=== PATIENT | female | born 1975 | race Caucasian/White ===

== ENCOUNTER 2018-11-30 23:02 | Emergency (ER) | payer OTHER, SELFPAY ==
[2018-11-30 23:03] VITALS: BP 111/70; PULSE 91; RESP 20; TEMP 36.6; O2SAT 99; BMI 22.7
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
[2018-11-30] MEDS: Morphine 4 MG/ML Syringe IM (23:56)
--- NOTE | 2018-12-01 00:09 | ED.RN ---
PT requests to go home and soak in bath tub and dress her own wounds. Dr Escalante states its ok. Pt given bacitracin for home use, and dressing supplies. Educated on wound care. Pt verbalizes understanding and reassures this RN that she will go straight home and soak and dress wounds appropriately.
[2018-12-01] MEDS: BACITRACIN 15 GM Tube 1 APPLIC TOPICAL ×2 (00:12→00:13)
[2018-12-01] MEDS: HYDROcodone Bitartrate/Apap 5/325 Tablet PO (00:30)
[2018-12-01 00:31] VITALS: BP 134/79; PULSE 102; RESP 18; O2SAT 99
== END 2018-12-01 00:36 | disposition home or self-care (01) ==
PROVIDERS: Emergency Provider Emergency Medicine; Family Provider Internal Medicine; PCP Internal Medicine
DX: S00.81XA Abrasion of other part of head, initial encounter (principal); S30.810A Abrasion of lower back and pelvis, initial encounter; S80.212A Abrasion, left knee, initial encounter; S80.211A Abrasion, right knee, initial encounter; S60.512A Abrasion of left hand, initial encounter; S60.511A Abrasion of right hand, initial encounter; S50.812A Abrasion of left forearm, initial encounter; S50.811A Abrasion of right forearm, initial encounter; S50.312A Abrasion of left elbow, initial encounter; S50.311A Abrasion of right elbow, initial encounter; S40.812A Abrasion of left upper arm, initial encounter; S40.811A Abrasion of right upper arm, initial encounter; S40.212A Abrasion of left shoulder, initial encounter; S40.211A Abrasion of right shoulder, initial encounter; E03.9 Hypothyroidism, unspecified; F90.9 Attention-deficit hyperactivity disorder, unspecified type; Z79.899 Other long term (current) drug therapy; V28.4XXA Motorcycle driver injured in noncollision transport accident in traffic accident, initial encounter; Y93.55 Activity, bike riding; Y92.410 Unspecified street and highway as the place of occurrence of the external cause; Y99.8 Other external cause status
CPT/HCPCS: 96372; 99284

== ENCOUNTER → 2019-12-11 16:40 | Outpatient (CLI) | payer BC, SELFPAY ==
--- NOTE | 2019-12-11 16:43 | BI_ITS ---
MAMMOGRAPHY - BILATERAL SCREENING REASON FOR EXAM: Female, 44 years old. Routine annual screening examination. PERTINENT HISTORY: Non-contributory. TECHNIQUE: Digital bilateral breast maikel (3D mammographic acquisition) in the CC and MLO projections. 2-D mediolateral oblique (MLO) and craniocaudad (CC) views of both breasts were obtained. CAD: Full Field Digital Mammography with Computer Added Detection was performed. COMPARISON: Comparison is made with prior study dated 03/26/2015. FINDINGS: Breast Composition: The breasts are heterogeneously dense, which may obscure small masses. There is a 6.6 mm x 8.7 mm nodule in the deep inferior lateral aspect of the right breast. Correlation with ultrasound is recommended for further evaluation. No other significant abnormalities are identified. BI/SCREEN MAMM (CAD) W/MAIKEL BILAT IMPRESSION: 6.6 mm x 8.7 mm well-defined nodule in the inferior lateral aspect of the right breast. Correlation with ultrasound is recommended. ASSESSMENT CATEGORY: BIRADS Category 0: Incomplete. Need additional imaging evaluation. A letter regarding these results will be sent to the patient by the facility within 30 days. Approximately 10% of breast cancers are not detected by mammography. A normal mammogram should not delay biopsy of a clinically suspicious abnormality. [id number] Electronically Signed: Sung Bosch, at 8:29 EDT , Service support ,
== END ==
PROVIDERS: PCP Internal Medicine; Referring Provider Obstetrics & Gynecology; Visit Provider Obstetrics & Gynecology
DX: Z12.31 Encounter for screening mammogram for malignant neoplasm of breast (principal)
CPT/HCPCS: 77063; 77067

== ENCOUNTER → 2019-12-17 16:30 | Outpatient (CLI) | payer BC, SELFPAY ==
[2019-12-24 20:24] LABS: HPV APTIMA, High Risk Negative (Negative); HPV Reflexed? YES, CHARGE PATIENT
== END ==
PROVIDERS: PCP Internal Medicine; Visit Provider Obstetrics & Gynecology
DX: Z12.4 Encounter for screening for malignant neoplasm of cervix (principal)
CPT/HCPCS: 87624; 88175; G0145

== ENCOUNTER → 2019-12-18 14:32 | Outpatient (CLI) | payer BC, SELFPAY ==
--- NOTE | 2019-12-18 14:36 | US_ITS ---
STUDY: ULTRASOUND BREAST - RIGHT REASON FOR EXAM: Female, 44 years old. Abnormal screening mammogram. TECHNIQUE: Axial and longitudinal images of the RIGHT breast were performed with a high resolution ultrasound transducer. # OF IMAGES: 10 COMPARISON: Comparison is made with prior mammogram dated 12/11/2019. FINDINGS: RIGHT Breast: The mammographic abnormality corresponds to a 5 mm x 3 mm x 2 mm cyst at the 7 o''clock position of the breastat 4 cm from the nipple. US/Breast Limited Unilateral IMPRESSION: The mammographic abnormality corresponds to a 5 mm x 3 mm x 2 mm cyst. ASSESSMENT CATEGORY: BIRADS Category 2: Benign. A letter regarding these results will be sent to the patient by the facility within 30 days. Electronically Signed: Sung Bosch, at 15:05 EDT , Service support ,
== END ==
PROVIDERS: PCP Internal Medicine; Referring Provider Obstetrics & Gynecology; Visit Provider Obstetrics & Gynecology
DX: N63.10 Unspecified lump in the right breast, unspecified quadrant (principal)
CPT/HCPCS: 76642

== ENCOUNTER 2020-09-29 07:00 | Outpatient (RCR) | payer BC, SELFPAY ==
--- NOTE | 2020-09-02 08:53 | HP.PTEVAL_ITS ---
Patient's Visit Information DARON HENDERSON is a 45 year old F referred to Physical Therapy by VICKY BRUNO with a diagnosis of Plantar Fascia and Fibromatosis. Date of Evaluation: 09/02/20 Physical Therapist: Laury Romero DPT - Visit Plan Frequency: 3x /Week Duration: 4 Weeks Plan: Focus on core strength/stabilization- gastroc stretching, proprioception, eccentric HR, ultrasound. HEP Review: gastroc stretch - Subjective Patient reports that she had July 16 tarsal tunnel - plantar fascitotomy last year- has been dealing with this for about 4-5 years. She was unable to spread her toes without shooting pains. He went in cleaned out scar tissue- this surgery was a success and she is able to now spread her toes. Has had it in both sides but the left is worse than the right. She can't stand on her feet without having to shift back forth. She was very active. Has tried injections, night splints, boots- nothing really helped. Worst: -01/16 Agg: standing, being up on it. Eases: sitting- takes time for the burning to go away- takes a few hours for it to go away- Best: 0/10. Has not done PT for her back- was seeing chiro- she felt it was making it worse so she stopped going. Has never had PT on her feet. Tore her ACL a few years ago but has never had formal PT. Pain is located along the medial plantar fascia and the heel. Describes the pain as dull and achy as well as burning. Has N/T in the same area. Feels her left is 50% worse than her right. Is unable to disability coordinator her kitchen- she is on a scooter to cook and perform ADL's. He put her in the boot- she just got off the crutches the other day. Wears the boot all the time when she is out- will wear crocks at home. Work: [employer]- sitting all day. Wants to get back to living life without pain. Will still go the gym and props her foot up on a bench and just does what she can. Has not seen an MD for her back pain. PMHx: thyroid. depression. Meds: synthroid and lomectal. She has also had S1 issues. Sleep: hard to get comfortable and will wake her up- side sleeper- does not sleep in a night splint. - Objective Posture: FH, RS- can correct with verbal cues but does not maintain. Gait: left CAM walker- ambulates on the outside of the foot and on the toe- poor heel strike. SLS: hip drop on the left- unable to sls due to pain. HR/TR: able with pain- does weight shift to the right. ROM: WFL in all planes- lumbar and LE. Strength: Core: fair minus. Hip: 4-/5 throughout, Knee: 5/5, Ankle: 5/5 Eccentric HR: fair minus. Flex: HS: moderate, Gastroc: moderate, Soleus: moderate. Palpation: tender along medial border of the plantar fascia and heel. Special Test: LLD: negative, Pelvic Alignment; WFL - Goals Goal 1:: Patient will be I with HEP and progression Goal Time Frame: 4-6 Weeks Goal 2:: Patient will ambulate >300 feet with a normalized gait pattern Goal Time Frame: 4-6 Weeks Goal 3:: Patient will SLS for 30 sec without pain or LOB Goal Time Frame: 4-6 Weeks Goal 4:: Patient will maintain proper posture t/o tx session to demo increased core s/s. Goal Time Frame: 4-6 Weeks - Rehabilitation Potential Physical Therapy Diagnosis: Patient presents with hypomobility- she has decreased core strength/stabilization, LE strength, flexibility and muscular endurance leading to poor gait pattern and increased pain with ADL's. Rehabilitation Potential: Fair - Anticipated Interventions Patient/Client Instruction: Educate patient on: Benefits of Fitness Program Therapeutic Exercise to Include: Strength training, Endurance training, Balance training, Body mechanics, Postural training, Flexibilty training, Gait and locomotor training, Neuromotor development, Dynamic Lumbar Stabilization, Scapular Strength/Stabilization For the Purpose of:: To improve muscle performance and motor function Cryotherapy (ice pack, ice massage): Yes Thermo therapy (hot pack): Yes Ultrasound (thermal/non thermal): Yes For the Purpose of:: To decrease pain Thank you for the opportunity to evaluate your patient. For Medicare and Medicare HMO plans, please review the plan of care and approve it. It will need to be FAXED BACK to us at [phone] for Medicare purposes. For Medicare only, by signing this I certify the plan of care. Please let me know if there are questions or concerns regarding this plan of care. Physician Signature: Date:
--- NOTE | 2020-09-29 09:25 | HP.PTDCSUM ---
It has been my pleasure to treat DARON HENDERSON referred by VICKY BRUNO, with the diagnosis of Plantar Fascia and Fibromatosis for a total of 7 visit(s). Discharge Date: Please see the following information for a summary of their discharge status. Subjective: Patient reports that she still does not have full ROM or strength in the left foot. Jaison horse pain last night in her toes. She feels like she has gained strength but the pain in the feet is pretty much the same. Goes back to the MD the . She feels that she is able to do more at home and has learned a lot through therapy. Bilat feet Pain Intensity (Out of 10): 9 % Improvement: 30 Objective/Function: Posture: FH, RS- can correct with verbal cues but does not maintain. Gait: no CAM walker- does have moderate foot drop on the left. SLS: hip drop on the left- but can maintain for 30 seconds without LOB HR: able with mild weight shift TR: unbale on the left ROM: WFL in all planes- lumbar and LE. Strength: Core: fair minus. Hip: 4-/5 throughout, Knee: 5/5, Ankle: 5/5 Eccentric HR: fair minus. Flex: HS: moderate, Gastroc: moderate, Soleus: moderate. Palpation: tender along medial border of the plantar fascia and heel. Special Test: LLD: negative, Pelvic Alignment; WFL Goal 1:: Patient will be I with HEP and progression Goal Progress: Goal Met Goal 2:: Patient will ambulate >300 feet with a normalized gait pattern Goal Progress: Progressing Goal 3:: Patient will SLS for 30 sec without pain or LOB Goal Progress: Progressing Goal 4:: Patient will maintain proper posture t/o tx session to demo increased core s/s. Goal Progress: Progressing Plan: Patient wants to be discharged to home exercise program. Encouraged follow up with estimator paperboard boxes and PCP If there are questions or concerns regarding this patient's physical therapy, please feel free to call me at [phone]. Thank you for the referral of this patient. Sincerely, Laury Romero DPT
== END 2020-09-29 14:46 | disposition home or self-care (01) ==
LOC: PT 07:00
PROVIDERS: PCP Internal Medicine
DX: M72.2 Plantar fascial fibromatosis (principal)
CPT/HCPCS: 97035; 97110; 97140; 97162; 97164; 97530

== ENCOUNTER → 2020-11-11 16:56 | Outpatient (CLI) | payer BC, SELFPAY ==
[2020-10-15 14:13] VITALS: BMI 22.7
--- NOTE | 2020-11-11 16:56 | MRI_ITS ---
STUDY: MRI LUMBAR SPINE WITHOUT CONTRAST REASON FOR EXAM: Female, 45 years old. LBP, bilat foot numbness TECHNIQUE: Standardized fat and water weighted pulse sequences were obtained in the sagittal and axial planes. COMPARISON: Lumbar spine x-rays 10/15/2020 FINDINGS: No evidence for acute fracture or subluxation. Interosseous hemangioma within the L1 vertebral body. T12-L1: Normal endplates. Normal disc height, hydration and morphology. Normal bilateral facet joints. Normal central canal and bilateral lateral recesses. Normal bilateral intervertebral neural foramina. Normal lumbar lordosis. There is no substantial scoliosis. Normal conus medullaris that terminates at T12-L1 L1-2: Normal endplates. Normal disc height, hydration and morphology. Normal bilateral facet joints. Normal central canal and bilateral lateral recesses. Normal bilateral intervertebral neural foramina. L2-3: Normal endplates. Normal disc height, hydration and minimal annular bulge.. Normal bilateral facet joints. Normal central canal and bilateral lateral recesses. Normal bilateral intervertebral neural foramina. L3-4: Normal endplates. Normal disc height, desiccation and minimal annular bulge.. Normal bilateral facet joints. Normal central canal and bilateral lateral recesses. Normal bilateral intervertebral neural foramina. L4-5: Normal endplates. Normal disc height, desiccation mild annular bulge.. Mild facet arthropathy.. Normal central canal and bilateral lateral recesses. Moderate bilateral neuroforaminal stenosis. L5-S1: Normal endplates. Normal disc height, desiccation and minimal annular bulge.. Mild facet arthropathy.. Normal central canal and bilateral lateral recesses. Mild bilateral neuroforaminal encroachment.. Normal visualized sacral ala. Normal visualized paraspinous soft tissue structures. MRI/Spine Lumbar (Routine) IMPRESSION: No acute fracture or other significant bony pathology. Spinal stenosis at L4-5 and to lesser extent at L3-4 secondary to bulging annulus and facet arthropathy Electronically Signed: Yoandy Ojeda MD at 22:40 EDT , Service support ,
== END ==
PROVIDERS: PCP Internal Medicine; Referring Provider Orthopaedic Surgery; Visit Provider Orthopaedic Surgery
DX: M54.5 Low back pain (principal)
CPT/HCPCS: 72148

== ENCOUNTER → 2021-01-13 16:22 | Outpatient (CLI) | payer BC, SELFPAY ==
--- NOTE | 2021-01-13 15:45 | CER_PTH ---
PATIENT: DARON HENDERSON LOC: [facility] U#:[id number] AGE/SX: 49/F ROOM: RE01/13/[address]: Dr. Estuardo Metzger MD : 1975 BED: DIS: SPEC #: [id number] RECD: 01/13/21 16:34 STATUS: DIONNE SNEHAL #: [id number] JOSE: 01/13/21 15:[address]: Estuardo Metzger DEPT: SURGICAL PATHOLOGY RECD BY: Maria Ines Loyola ENTERED: 01/14/21 08:30 SP TYPE: CERV OTHR DR: Dr. Kary Ochoa MD Tissues: Uterine cervix, NOS Procedures: Surgery Specimen Level IV HEADER OPERATION: Cervical polypectomy PRE-OP DIAGNOSIS: N84.1 TISSUE SUBMITTED: Cervical polyp MICROSCOPIC DIAGNOSIS Cervical polyp, polypectomy: A minute fragment of benign endometrial mucosa consistent with benign endocervical polyp. Fragments of late secretory endometrium. SJ:ricco 01/17/2021 MICROSCOPIC DESCRIPTION Slides are reviewed. GROSS DESCRIPTION Received in fixative is one container labeled with the patient's name and designated cervical polyp. The specimen consists of multiple irregular fragments of martinez soft tissue mixed with mucoid tissue that in aggregate measure 1.5 x 0.5 x 0.2 cm. The specimen is totally submitted in one cassette. / SJ:ricco 01/14/21 TC:5 [facility]: [id number]
[2021-01-18 15:58] LABS: HPV Reflexed? NOT INDICATED
== END ==
PROVIDERS: PCP Internal Medicine; Visit Provider Obstetrics & Gynecology
DX: Z12.4 Encounter for screening for malignant neoplasm of cervix (principal)
CPT/HCPCS: 88175; 88305; G0145

== ENCOUNTER → 2021-02-17 07:09 | Outpatient (CLI) | payer BC, SELFPAY ==
--- NOTE | 2021-02-17 16:05 | BI_ITS ---
MAMMOGRAPHY - BILATERAL SCREENING REASON FOR EXAM: Female, 45 years old. Routine annual screening examination. PERTINENT HISTORY: Non-contributory. TECHNIQUE: Digital bilateral breast maikel (3D mammographic acquisition) in the CC and MLO projections. 2-D mediolateral oblique (MLO) and craniocaudad (CC) views of both breasts were obtained. CAD: Full Field Digital Mammography with Computer Added Detection was performed. COMPARISON: Comparison is made with prior study dated 12/11/2019 and 03/26/2015. FINDINGS: Breast Composition: The breasts are heterogeneously dense, which may obscure small masses. There are no dominant masses or suspicious calcifications. The previously seen 6.6 mm x 8.7 mm nodule in the deep lateral aspect of the right breast is not seen at this time. No other significant abnormalities are identified. BI/SCRN MAMM (CAD)W/MAIKEL BILAT IMPRESSION: Stable bilateral screening mammogram. Yearly follow-up mammogram recommended. (A) ASSESSMENT CATEGORY: BIRADS Category 2: Benign. A letter regarding these results will be sent to the patient by the facility within 30 days. Approximately 10% of breast cancers are not detected by mammography. A normal mammogram should not delay biopsy of a clinically suspicious abnormality. [id number] Electronically Signed: Sung Bosch MD at 8:43 EST , Service support ,
== END ==
PROVIDERS: PCP Internal Medicine; Referring Provider Obstetrics & Gynecology; Visit Provider Obstetrics & Gynecology
DX: Z12.31 Encounter for screening mammogram for malignant neoplasm of breast (principal)
CPT/HCPCS: 77063; 77067

== ENCOUNTER → 2021-09-07 | Outpatient (CLI) | payer BC, SELFPAY ==
--- NOTE | 2021-09-07 06:39 | MRI_ITS ---
STUDY: MRI LEFT ANKLE WITHOUT CONTRAST REASON FOR EXAM: Left foot pain for 6 years with numbness, 2 prior surgeries, tarsal tunnel syndrome. TECHNIQUE: Standardized fat and water weighted pulse sequences were obtained in all 3 orthogonal planes. COMPARISON: None. FINDINGS: Normal subcutis adipose space. There is no space-occupying lesion in the tarsal tunnel. Normal posterior tibialis tendon. Normal flexor digitorum longus tendon. There is a small volume of fluid in the flexor hallucis longus tendon sheath, mostly distal to the sustentaculum jennifer (inversion recovery sagittal image 8). There is a longitudinal split of the perimalleolar peroneus brevis tendon (T1 axial images 12-14). Normal peroneus longus and brevis tendons. Normal tibialis anterior tendon. Normal extensor hallucis longus tendon. Normal extensor digitorum longus tendons. Normal Achilles tendon and teno-osseous insertion. There is chronic plantar fasciitis with thickening of the central cord (T2 coronal images 18-20). Normal plantar calcaneal tubercles. Normal intrinsic muscles of the rearfoot. Normal distal tibiofibular syndesmotic ligamentous complex. Normal lateral ligamentous complex. Normal subtalar ligaments and sinus tarsi. Normal deltoid ligamentous complexes. Normal plantar calcaneonavicular (spring) ligament. There is a small tibiotalar joint effusion (inversion recovery sagittal image 12). Normal talar dome. There is a small posterior subtalar joint effusion (inversion recovery sagittal images 15, 16). There is a small os trigonum. Normal talonavicular articulation. Normal calcaneocuboid articulation. Normal navicular-cuneiform articulations. MRI/Lower Ext Joint Only (Routine) IMPRESSION: Longitudinal split of the peroneus brevis tendon. Chronic plantar fasciitis. Small tibiotalar and posterior subtalar joint effusions. No demonstrated space-occupying lesion in the tarsal tunnel. Electronically Signed: Nate Nava MD at 15:01 EDT ,
== END | disposition home or self-care (01) ==
LOC: MRI 06:31
PROVIDERS: PCP Internal Medicine; Visit Provider Podiatrist Foot & Ankle Surgery
DX: G57.52 Tarsal tunnel syndrome, left lower limb (principal); M72.2 Plantar fascial fibromatosis
CPT/HCPCS: 73721

== ENCOUNTER → 2024-10-08 | Outpatient (CLI) | payer SELFPAY ==
--- OUTSIDE RECORDS SUMMARY | 2024-10-08 07:25 | XMS RPT_ITS | CCD ---
Author Organization [facility] Care Team Providers Care Airport Operations Specialist Name Role Phone LISA, EDWIN MARY Admitting Unavailable GANTA, DEWIN MARY Attending Unavailable LISA, EDWIN MARY Primary Care Unavailable GANTA, EDWIN MARY Consulting Unavailable PROVIDER, UNKNOWN Consulting Unavailable KORABLEVA, SHEYLA B Admitting Unavailable KORABLEVA, SHEYLA B Attending Unavailable KORABLEVA, SHEYLA B Primary Care Unavailable GANTA, EDWIN MARY Consulting Unavailable PROVIDER, UNKNOWN Consulting Unavailable HORN, HANANE DPM Admitting Unavailable HORN, HANANE DPM Attending Unavailable HORN, HANANE DPM Primary Care Unavailable GANTA, EDWIN MARY Consulting Unavailable PROVIDER, UNKNOWN Consulting Unavailable HORN, HANANE DPM Admitting Unavailable HORN, HANANE DPM Attending Unavailable HORN, HANANE DPM Primary Care Unavailable GANTA, EDWIN MARY Consulting Unavailable PROVIDER, UNKNOWN Consulting Unavailable Edwin Gonzalez MD Primary Care Provider Edwin Gonzalez MD Primary Care Provider Edwin Gonzalez MD Primary Care Provider Edwin Urrutia MD Primary Care Provider TATO CAR Attending Unavailable Dr. Edwin Gonzalez MD Primary Care Provider Dr. Edwin Gonzalez MD Referring Provider Dr. Jeremiah Horvath MD Attending Provider [phone] Jeremiah Horvath Attending Unavailable Edwin Gonzalez Referring Unavailable Lisa, Edwin Primary Care Unavailable Older GUN NUMBERER.INSTITUTIONAL COMMODITY ANALYST, Lashell Unavailable EDWIN GONZALEZ Primary Care Unavailable [facility] Primary [facility] Unavailable [facility] Primary [facility] Unavailable [facility] Primary [facility] Unavailable Allergies Allergy Classification Reported Allergen(s) Allergy Type Date of Onset Reaction(s) Facility (13 sources) Doxycycline; Translations: [DOXYCYCLINE] Drug Allergy 08-28-2003 [facility] Medications Current Medications Medication Drug Class(es) Dates Sig (Normalized) Sig (Original) amoxicillin 875 mg / clavulanate 125 mg oral tablet (2 sources) Penicillin-class Antibacterial Start: 05-31-2023 End: 06-10-2023 take 1 tablet by mouth twice daily amoxicillin-clavu lanate potassium (AUGMENTIN) 875-125 mg per tablet Take 1 tablet by mouth two times a day for 10 days. 20 tablet 0 05/31/2023 06/10/2023 Active Comment on above: Take 1 tablet by bryant th two times a day for 10 days. cephalexin 500 mg oral capsule (3 sources) Cephalosporin Antibacterial Start: 02-19-2023 End: 02-24-2023 take 1 capsule by mouth twice daily cephALEXin (KEFLEX) 500 mg capsule Indications: Acute paronychia of left thumb Take 1 capsule by mouth two times a day for 5 days. 10 capsule 0 02/19/2023 02/24/2023 Active Comment on above: Take 1 capsule by mo [facility] two times a day for 5 days. cetirizine hydrochloride 10 mg oral tablet (12 sources) Histamine-1 Receptor Antagonist Start: 05-22-2011 take 1 tablet by mouth once daily cetirizine 10 mg ORAL tablet Take 1 tablet by mouth once daily. 90 tablet 3 05/22/2011 Active Comment on above: Take 1 tablet by bryant th once daily. lamoTRIgine 200 mg oral tablet (20 sources) Mood Stabilizer, Anti-epileptic Agent Start: 08-22-2017 take 1 tablet by mouth once daily Lamotrigine 200 mg tablet Active 200 mg PO daily September 03, 2024 12:00am Start: 09-21-2014 End: 10-15-2020 take 200 mg by mouth once daily Lamotrigine Active 200 MG PO DAILY October 15, 2020 2:01pm Start: 09-21-2014 End: 09-03-2024 take 2 tablets by mouth once daily Lamotrigine 100 mg tablet Discontinued 200 mg PO DAILY October 15, 2020 2:01pm September 03, 2024 8:42am Comment on above: Take 1 tablet by bryant once daily. levothyroxine sodium 0.1 mg oral tablet (20 sources) l-Thyroxine Start: 09-03-2024 Levothyroxine (Euthyrox) 100 mcg tablet Active 100 ug PO .COMPLEX September 03, 2024 12:00am 100 mcg orally Mon, Tues, Thurs, Fri, & sat; Start: 08-15-2017 take 1 tablet by bryant once daily levothyroxine (SYNTHROID) 150 mcg tablet Take 1 tablet by mouth once daily. 90 tablet 08/15/2017 Active Start: 09-21-2014 End: 10-15-2020 take 100 ug by mouth once daily Levothyroxine Active 100 MCG PO DAILY October 15, 2020 2:02pm Start: 09-21-2014 End: 09-03-2024 Levothyroxine 75 mcg tablet Discontinued 100 ug PO DAILY October 15, 2020 2:02pm September 03, 2024 8:41am take 1 tablet by [facility] once daily levothyroxine (Synthroid, Levoxyl) 112 MCG tablet Take 112 mcg by mouth 1 (one) time each day at the same time. Active Comment on above: Take 1 tablet by [facility] once daily. liothyronine sodium 0.005 mg oral tablet (14 sources) l-Triiodothyroni ne Start: 09-03-2024 take 1 tablet by mouth once daily Liothyronine 5 mcg tablet Active 5 ug PO daily September 03, 2024 12:00am Start: 12-16-2022 take 1 tablet by [facility] once daily liothyronine (Cytomel) 5 MCG tablet Take 5 mcg by mouth Daily 03/09/2024 Active progesterone 200 mg oral capsule (1 source) Progesterone Start: 09-03-2024 Progesterone Micronized 200 mg capsule Active mg PO September 03, 2024 12:00am sulfamethoxazole 800 mg / trimethoprim 160 mg oral tablet (3 sources) Dihydrofolate Reductase Inhibitor Antibacterial, Sulfonamide Antimicrobial Start: 05-16-2023 End: 05-19-2023 take 1 tablet by mouth twice daily sulfamethoxazole- trimethoprim (BACTRIM DS) 800-160 mg per tablet Indications: Paronychia of right middle finger Take 1 tablet by mouth two times a day for 3 days. 6 tablet 0 05/16/2023 05/19/2023 Active Start: 02-21-2023 End: 02-28-2023 take 1 tablet by mouth twice daily sulfamethoxazole-trimethoprim (BACTRIM D S) 800-160 mg per tablet Indications: Acute paronychia of left thumb Take 1 tablet by mouth two times a day for 7 days. 14 tablet 0 02/21/2023 02/28/2023 Active Comment on above: Take 1 tablet by bryant th two times a day for 7 days. Take 1 tablet by bryant th two times a day for 3 days. SUMAtriptan 100 mg oral tablet (18 sources) Serotonin-1b and Serotonin-1d Receptor Agonist Start: 09-03-2024 Sumatriptan Succinate 100 mg tablet Active mg PO September 03, 2024 12:00am Start: 03-19-2023 End: 07-22-2024 SUMAtriptan (Imitrex) 100 MG tablet Indications: Intractable chronic migraine without aura and without status migrainosus (CMS/HCC) Take 1 tablet (100 mg) by mouth 1 (one) time if needed for migraine May repeat dose once in 2 hours if no relief. Do not exceed 2 doses in 24 hours. 24 tablet 3 04/17/2024 07/22/2024 Active Start: 07-29-2020 SUMAtriptan (I MITREX) 25 mg tablet Indications: Migraine with aura and without status migrainosus, not intractable TAKE 1 PILL AT ONSET OF HEADACHE MAY REPEAT Q 2 HRS PRN 27 tablet 07/29/2020 Active Comment on above: TAKE 1 PILL AT ONSET OF HEADACHE MAY REPEAT Q 2 HRS PRN traZODone hydrochloride 50 mg oral tablet (10 sources) Serotonin Reuptake Inhibitor Start: take 1 tablet by mouth at bedtime as needed Trazodone 50 mg tablet Active 50 mg PO AT BEDTIME as needed September 03, 2024 12:00am Comment on above: Take 1 tablet by bryant th daily at bedtime. Takes half a pill total is 25mg Completed/Discontinued Medications Medication Drug Class(es) Dates Sig (Normalized) Sig (Original) acetaminophen 325 mg / HYDROcodone bitartrate 5 mg oral tablet (2 sources) Opioid Agonist Start: 11-30-2018 End: 12-07-2018 take 1 tablet by mouth every six hours as needed Hydrocodone-Acetami nophen Discontinued 1 TABLET PO EVERY 6 HOURS NEEDED 10 November 30, 2018 11:42pm December 07, 2018 12:08am Start: 11-30-2018 End: 12-07-2018 Hydrocodone-Acetaminophen 1 TABLET tablet Discontinued 1 {tbl} PO EVERY 6 HOURS NEEDED as needed for Pain 10 November 30, 2018 December 02, 2018 12:00am December 07, 2018 12:08am adapalene 0.001 mg/mg topical gel (2 sources) Retinoid Start: 11-23-2014 End: 02-19-2023 adapalene (DIFFERIN) 0.1 % gel Apply 1 application to affected area daily at bedtime. 60 g 1 11/23/2014 02/19/2023 Discontinued Comment on above: Apply 1 application to affected area daily at bedtime. [id number] 200 actuat albuterol 0.09 mg/actuat metered dose inhaler (2 sources) beta2-Adrenergic Agonist Start: 03-17-2019 End: 02-19-2023 take 2 puff(s) by inhalation every four hours as needed albuterol HFA (PROAIR HFA) 90 mcg/actuation inhaler Inhale 2 Puffs as instructed every 4 hours as needed. 1 Inhaler 2 03/17/2019 02/19/2023 Discontinued Comment on above: Inhale 2 Puffs as in structed every 4 hours as needed. 24 hr amphetamine aspartate 6.25 mg / amphetamine sulfate 6.25 mg / dextroamphetamine saccharate 6.25 mg / dextroamphetamine sulfate 6.25 mg extended release oral capsule (4 sources) Central Nervous System Stimulant Start: 08-22-2017 End: 02-19-2023 Amphetamine-Dextr oamphetamine (ADDERALL XR) 25 mg 24 hr capsule Indications: Attention deficit hyperactivity disorder (ADHD), predominantly inattentive type Take by mouth. Earliest Fill Date: 08/22/17 0 08/22/2017 02/19/2023 Discontinued Start: 09-21-2014 End: 10-15-2020 take 1 tablet by mouth once daily Dextroamphetamine-Amphetamine (Adderall 20 Mg Tablet) 20 MG tablet Discontinued 20 MG PO DAILY September 21, 2014 6:11pm October 15, 2020 2:01pm Comment on above: Take by mouth. Earliest Fill Date: 08/22/17 aspirin 81 mg delayed release oral tablet (2 sources) Platelet Aggregation Inhibitor, Nonsteroidal Anti-inflammatory Drug Start: 014 End: take 1 tablet by mouth once daily aspirin, enteric coated (ECOTRIN LOW STRENGTH) 81 mg EC tablet Indications: Thrombophlebitis leg superficial Take 1 tablet by mouth once daily. 0 10/18/2013 02/19/2023 Discontinued Comment on above: Take 1 tablet by bryant once daily. 24 hr buPROPion hydrochloride 300 mg extended release oral tablet (2 sources) Aminoketone Start: 015 End: take 1 tablet by mouth once daily buPROPion XL (WELLBUTRIN XL) 300 mg 24 hr tablet Indications: Bipolar disorder, unspecified (HCC) Take 1 tablet by mouth once daily. 90 tablet 3 08/11/2014 02/19/2023 Discontinued Comment on above: Take 1 tablet by bryant once daily. cyclobenzaprine hydrochloride 10 mg oral tablet (2 sources) Muscle Relaxant Start: 020 End: take 1 tablet by mouth every eight hours as needed cyclobenzaprine (FLEXERIL) 10 mg tablet Take 1 tablet by mouth every 8 hours as needed for Muscle Spasm. 20 tablet 0 04/29/2019 02/19/2023 Discontinued Comment on above: Take 1 tablet by bryant th every 8 hours as needed for Muscle Spasm. dexamethasone 1 mg/ml / tobramycin 3 mg/ml ophthalmic suspension (2 sources) Aminoglycoside Antibacterial, Corticosteroid Start: 014 End: take 1 drop(s) into the eye(s) every four hours tobramycin-dexamethaso ne (TOBRADEX) ophthalmic solution Indications: Blepharitis of both eyes Use 1 Drop in both eyes every 4 hours while awake. 1 Bottle 0 12/18/2013 02/19/2023 Discontinued Start: 12-18-2013 take 1 drop(s) into the eye(s) every four hours tobramycin-dexamethasone (TOBRADEX) ophthalmic solution Indications: Blepharitis of both eyes Use 1 Drop in both eyes every 4 hours while awake. 1 Bottle 0 12/18/2013 Active Comment on above: Use 1 Drop in both e yes every 4 hours while awake. fluticasone propionate 0.05 mg/actuat metered dose nasal spray (2 sources) Corticosteroid Start: 016 End: take 1 spray(s) nasal route once daily fluticasone (FLONASE) 50 mcg/actuation nasal spray Use 1 Center in each nostril once daily. Use as directed. 3 Bottle 1 08/23/2015 02/19/2023 Discontinued Comment on above: Use 1 Center in each nostril once daily. Use as directed. gabapentin 100 mg oral capsule (2 sources) Anti-epileptic Agent End: take 3 capsules by mouth once daily gabapentin (NEURONTIN) 100 mg capsule Take 300 mg by mouth once daily. 0 02/19/2023 Discontinued Comment on above: Take 300 mg by mouth once daily. bx rating 24 hr methylphenidate hydrochloride 18 mg extended release oral tablet (2 sources) Central Nervous System Stimulant Start: 014 End: take 1 tablet by mouth once daily methylphenidate ER 18 mg CR tablet Indications: ADHD (attention deficit hyperactivity disorder) , Bipolar disorder, unspecified (HCC) Take 1 tablet by mouth once daily. 30 tablet 0 07/07/2013 02/19/2023 Discontinued Comment on above: Take 1 tablet by [facility] once daily. omeprazole 20 mg delayed release oral capsule (2 sources) Proton Pump Inhibitor Start: 015 End: take 1 capsule by mouth once daily omeprazole (PRILOSEC) 20 mg capsule Take 1 capsule by mouth once daily. 90 capsule 1 11/23/2014 02/19/2023 Discontinued Comment on above: Take 1 capsule by [facility] once daily. predniSONE 20 mg oral tablet (3 sources) Start: 024 End: take 2 tablets by mouth once daily predniSONE (DELTASONE) 20 mg tablet Indications: LRTI (lower respiratory tract infection) Take 2 tablets by mouth once daily for 5 days. 10 tablet 05/30/2023 06/04/2023 Comment on above: Take 2 tablets by [facility] once daily for 5 days. propranolol hydrochloride 10 mg oral tablet (2 sources) beta-Adrenergic Anel Start: End: take 1 tablet by mouth twice daily propranolol (INDERAL) 10 mg tablet TAKE 1 TABLET BY MOUTH TWICE DAILY GENERIC EQUIVALENT FOR INDERAL 180 tablet 3 01/08/2018 02/19/2023 Discontinued Comment on above: TAKE 1 TABLET BY BRYANT TH TWICE DAILY GENERIC EQUIVALENT FOR INDERAL sulfacetamide sodium 100 mg/ml / sulfur 45 mg/ml medicated liquid soap (2 sources) Sulfonamide Antibacterial Start: 015 End: sulfacetamide sodium-sulfur 10-4.5 % clsr Apply 1 application to affected area twice daily. 3 Bottle 1 11/23/2014 02/19/2023 Discontinued Comment on above: Apply 1 application to affected area twice daily. zafirlukast 20 mg oral tablet (2 sources) Leukotriene Receptor Antagonist Start: End: take 1 tablet by mouth twice daily zafirlukast (ACCOLATE) 20 mg tablet Take 1 tablet by mouth twice daily. 180 tablet 0 03/17/2019 02/19/2023 Discontinued Comment on above: Take 1 tablet by bryant th twice daily. Problems Active Problems Problem Classification Problem Date Documented Date Episodic/Chronic Asthma (14 sources) Mild intermittent asthma; Translations: [Mild intermittent asthma, uncomplicated] Onset: 02-16-2004 04-29-2019 Chronic Attention-deficit, conduct, and disruptive behavior disorders (12 sources) Attention deficit hyperactivity disorder; Translations: [Attention-deficit hyperactivity disorder, unspecified type] Onset: 03-20-2013 03-20-2013 Chronic Disorders of lipid metabolism (1 source) Hyperlipidemia, unspecified; Translations: [Hyperlipoproteinemia ] Onset: 06-25-2024 Chronic Headache; including migraine (17 sources) Migraine; Translations: [Migraine, unspecified, not intractable, without status migrainosus] Onset: 03-18-2002 08-22-2017 Chronic Influenza (1 source) Influenza-like illness; Translations: [Influenza due to unidentified influenza virus with other respiratory manifestations] 05-16-2023 Episodic Menopausal disorders (1 source) Menopausal and female climacteric states; Translations: [Symptomatic menopausal or female climacteric states] Onset: 06-25-2024 Chronic Mood disorders (20 sources) Depressive disorder; Translations: [Other specified depressive episodes] Onset: 10-29-2002 08-03-2003 Chronic Nutritional deficiencies (1 source) Vitamin D deficiency, unspecified; Translations: [Avitaminosis D] Onset: 06-25-2024 Chronic Other endocrine disorders (1 source) Other ovarian dysfunction; Translations: [Other ovarian dysfunction] Onset: 09-27-2024 Chronic Other lower respiratory disease (2 sources) Lower respiratory tract infection; Translations: [Unspecified acute lower respiratory infection] 05-30-2023 Episodic Other nervous system disorders (2 sources) Tarsal tunnel syndrome; Translations: [Tarsal tunnel syndrome, unspecified lower limb] 11-17-2020 Chronic Comment on above: left foot partial ta rsal tunnel Other nervous system disorders (2 sources) Idiopathic peripheral neuropathy; Translations: [Hereditary and idiopathic neuropathy, unspecified] 11-17-2020 Chronic Other nervous system disorders (5 sources) Neuropathy; Translations: [Polyneuropathy, unspecified] Onset: 10-12-2022 10-12-2022 Chronic Other nutritional; endocrine; and metabolic disorders (1 source) Cholesterol level - finding; Translations: [Lipoprotein deficiency] 06-06-2023 Chronic Other screening for suspected conditions (not mental disorders or infectious disease) (6 sources) Patient encounter status; Translations: [Encounter for screening mammogram for malignant neoplasm of breast] Episodic Other upper respiratory disease (12 sources) Allergic rhinitis; Translations: [Allergic rhinitis, unspecified] Onset: 08-03-2005 08-03-2005 Chronic Residual codes; unclassified (2 sources) History of laparoscopy; Translations: [Other specified postprocedural states] 10-15-2020 Episodic Comment on above: endoscopic plantar f asciotomy left foot Residual codes; unclassified (4 sources) Menopause present; Translations: [Asymptomatic menopausal state] Onset: 04-17-2024 04-17-2024 Episodic Skin and subcutaneous tissue infections (4 sources) Paronychia of thumb; Translations: [Cellulitis of left finger] 02-19-2023 Episodic Thyroid disorders (20 sources) Other specified hypothyroidism; Translations: [Hypothyroidism] Onset: 08-31-2004 04-29-2019 Chronic Past or Other Problems Problem Classification Problem Date Documented Da te Episodic/Chronic Malaise and fatigue (1 source) Other fatigue; Translations: [Lethargic infant] Onset: 5 Episodic Phlebitis; thrombophlebitis and thromboembolism (12 sources) Thrombophlebitis of superficial veins of lower extremity; Translations: [Phlebitis and thrombophlebitis of superficial vessels of unspecified lower extremity] Onset: 4 10-18-2013 Episodic Residual codes; unclassified (12 sources) History of clinical finding in subject; Translations: [Personal history of other medical treatment] Onset: 2 10-28-2021 Episodic Varicose veins of lower extremity (12 sources) Venous varices; Translations: [Asymptomatic varicose veins of unspecified lower extremity] Onset: 4 10-18-2013 Episodic Results Test Name Value Interpretation Reference Range Facility Estradiol SerPl-ncon 09-27 E2 [Mass/Vol] pg/mL Normal [facility] Comment on above: Order Comment: Specimen Type: BLOOD SPEC IMEN Ordering Facility: [facility] Address: [address] [place] [id number] Result Comment: This test is not suitable for patients receiving treatment with the drug Fulvestrant (Faslodex). The drug causes an interference leading to falsely elevated estradiol results. Menstrual cycle Estradiol reference ranges: Follicular : < 234 pg/mL Ovulation : 41 to 398 pg/mL Luteal : < 342 pg/mL Estradiol reference ranges vary by gestational period: First trimester : 154 to 3243 pg/mL Second trimester : 1561 to 45083 pg/mL Third trimester : 8285 to >80206 pg/mL Post-menopausal Estradiol reference range: < 41 pg/mL Reference: 1. Estradiol - E2 (Estradiol III) [package insert V 3.0 [place]]. [facility], [place], [place], September 2015. Performed By: #### 3 016-3, 2986-8 #### [facility] CLIA [id number] [address] [place] [address] [place] Progest SerPl-mCncon 025 Progesterone [Mass/Vol] 0.3 ng/mL Normal See comment [facility] Comment on above: Order Comment: Specimen Type: BLOOD SPEC IMEN Ordering Facility: [facility] Address: [facility] [place] [place] [address] Result Comment: Mens trual Cycle Progesterone Reference Ranges: Follicular: <1.0 ng/mL Ovulation: <12.1 ng/mL Luteal: 1.8 to 23.9 ng/mL. Progesterone Reference Ranges vary by gestational period: First Trimester: 11.0 to 44.3 ng/mL Second Trimester: 25.4 to 83.3 ng/mL Third Trimester: 58.7 to 214 ng/mL Post menopausal Progesterone: <0.5 ng/mL Reference: 1. Progesterone (Progesterone III) [package insert V 1.0 Citizen [place]]. [email or web address], [place], [place]. January 2015. Performed By: #### 3 016-3, 2986-8 #### [facility] CLIA [id number] [address] [place] [address] [place] T3Free SerPl-mCncon 09-28-19 25 Free T3 [Mass/Vol] 3.1 pg/mL Normal 2.3-4.1 [facility] Comment on above: Order Comment: Specimen Type: BLOOD SPEC IMEN [facility]ing Facility: [facility] Address: [address] [place], [place] [address] [place] [address] Performed By: #### 3 016-3, 2986-8 #### [facility] CLIA [id number] [address] [place] [address] [place] T4 Free SerPl-mCncon 025 Free T4 [Mass/Vol] 0.9 ng/dL Normal 0.9-1.7 [facility] Comment on above: Order Comment: Specimen Type: BLOOD SPEC IMEN [facility]ing Facility: [facility] Address: [address] [place], [place] [address] [place] [place] [address] Performed By: #### 3 016-3, 2986-8 #### [facility] CLIA [id number] [address] [place] [address] [place] THYROGLOBULIN ANTIBODYon Thyroglobulin Ab Qn 201.1 [IU]/mL High <4.0 [facility] Comment on above: Order Comment: Specimen Type: BLOOD SPEC IMEN Ordering Facility: [facility] Address: [address] [place] [id number] Result Comment: The Thyroglobulin Antibody test was performed using the [employer] Un[employer]el DXI paramagnetic particle chemiluminescent immunoassay method. Results obtained with different assay methods or kits cannot be used interchangeably. Performed By: #### T ALEJO #### [facility] CLIA [id number] [address] [place] [address] [place] THYROID PEROXIDASE ANTIBODYo n 09-27-2024 TPO Ab Qn 37.3 [IU]/mL High <5.6 [facility] Comment on above: Order Comment: Specimen Type: BLOOD SPEC IMEN Ordering Facility: [facility] Address: [address] [place] [address] Result Comment: Thyr oid Peroxidase Antibody test is used as an aid in diagnosis of autoimmune thyroid disease. Clinical correlation is required. Performed By: #### 2 4323-8, DHEAS, 2243-4, 11574-5 #### [facility] IA [id number] [address] [place] [address] [place] TSH SerPl-aCncon 09-27-2024 TSH Qn 4.160 m[IU]/L Normal 0.270-4.20 0 [facility] Comment on above: Order Comment: Specimen Type: BLOOD SPEC IMEN Ordering Facility: [facility] Address: [address] [place] [address] Performed By: #### 3 016-3, 2986-8 #### [facility] [place] [id number] [address] [place] [address] [place] Testost SerPl-mCncon 025 Testosterone [Mass/Vol] 18 ng/dL Normal <40 [facility] Comment on above: Order Comment: Specimen Type: BLOOD SPEC IMEN Ordering Facility: [facility] Address: [facility] [place] [address] Performed By: #### 3 016-3, 2986-8 #### [facility] CLIA [id number] [address] [place] [address] [place] CNPRoxane 09-18-2024 CNPN Telephone (4CQ) SHANICE WHIPPLE ([id number]) 1975 F Date Time Provider Department 09/18/24 EDWIN GONZALEZ 4CQ During your visit today, we recorded the following information about you: Awilda Fermin 09/18/2024 1:15 PM Signed Pt wants all lab results from 2024 faxed to her @ [phone] Annamaria Dunaway LPN 09/18/2024 1:45 PM Signed Labs have been faxed to number provided Allergies As of Date: 09/18/2024 Noted Allergy Reaction DOXYCYCLINE 08/28/2003 Comments: nausea,vomiting Date Reviewed: 06/06/2023 Reviewed by: Ramya Ac LPN - Fully Assessed Prescriptions as of 09/18/2024 - traZODone (DESYREL) 50 mg tablet Take 1 tablet by mouth daily at bedtime. Takes half a pill total is 25mg - liothyronine (CYTOMEL) 5 mcg tablet - SUMAtriptan (IMITREX) 25 mg tablet TAKE 1 PILL AT ONSET OF HEADACHE MAY REPEAT Q 2 HRS PRN - lamoTRIgine (LAMICTAL) 200 mg tablet Take 1 tablet by mouth once daily. - levothyroxine (SYNTHROID) 150 mcg tablet Take 1 tablet by mouth once daily. - cetirizine 10 mg ORAL tablet Take 1 tablet by mouth once daily. Problem List As Of Date 09/18/2024 Noted Resolved Migraine [G43.909] 03/18/2002 DEPRESSIVE DISORDER NEC [F32.89] 10/29/2002 Mild intermittent asthma without complication [*02/16/2004 Hypothyroidism [E03.9] 08/31/2004 ALLERGIC RHINITIS NOS [J30.9] 08/03/2005 Bipolar disorder, unspecified [F31.9] 12/05/2010 ADHD (attention deficit hyperactivity disorder)*03/20/2013 Thrombophlebitis leg superficial [I80.00] 10/18/2013 Varicose veins [I83.90] 10/18/2013 History of psychiatric care [Z92.89] 10/28/2021 Encounter Status:Closed by ANNAMARIA DUNAWAY on 09/18/24 Normal [facility] Neurology Visit Reporton Neurology Visit Report [facility] [address] [facility], [address] [place] [address] OFFICE VISIT Date of Service: 09/03/24 MR#: [id number] Acct: [id number] Name: SHANICE WHIPPLE Rep #: [id number] : 1975 Provider: Dr. Jeremiah ortega MD Age/Sex: 49/F Location: [facility].BN Status: Signed HPI HPI Chief Complaint: Establish Care Details: The patient is a 49-year-old right handed female who presents to [facility]. She was a former patient of neurologist Dr. Tato Car for migraines. This patient is evaluated for migraines. She states that her migraines had occurred more frequently over the past year or 2 as she entered perimenopausal/menopausal status. She notes that her migraines may be exacerbated related to her periods. 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 She has been taking progesterone about 2 months and may have had a reduction in headache severity. Patient's headaches have been occurring almost daily but are currently perhaps 1 or 2/month. It is too early to tell how well the progesterone is working. Headaches may be 8/10 in severity. Their whole head throbbing. They are associate with photophobia phonophobia 1 episode of nausea without vomiting and may last a day or so if untreated. Patient has been given Imitrex. She currently has 100 mg tablets available to her. She receives prescription for 9/month. She actually takes 50 mg which relieves her headache in 30 to 45 minutes. 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 She notes that bluelight or flashing light of the computer screen may cause her to have headache. If she is prompting taking her Imitrex at the first sign of migraine she is able to abort it with Imitrex. Patient has not been on magnesium. I recommended either magnesium oxide 400 mg p.o. every morning with water to enhance absorption. She is not to take anything for the next 30 minutes. She can also take magnesium diglycinate 600 mg p.o. every morning as well. Patient is on Lamictal for purposes of treating depression. Patient had been treated in the past with Inderal successfully for managing headache but then she eventually discontinued that. It should be noted that Inderal can contribute to depression. Patient does have Carolynn thyroiditis. Patient does have gluten intolerance and may have celiac disease. She states that she has been diagnosed with small fiber peripheral neuropathy with minor sensory changes in the feet. She did indicate prior EMG and nerve conduction studies x [address] Car but that report is not available in today's records. No skin biopsy had been performed. Patient notes that since identifying gluten is a problem for her that she has greatly improved her headache status and her overall health by limiting use of gluten and not eating at all. Exam Const Other: Blood pressure 110/72 pulse 65 respiration 15 temperature 98.4 O2 sat 96%. BMI is 25.1. General appearance well-developed well-nourished female no acute distress. Neurologic examination: Mental status: Awake alert oriented x 3. Memory testing showed she recalled 1 out of 3 objects. Patient may have been distracted. Mood appeared to be upbeat. Language showed normal manager knowledge expression repetition. Insight and judgment appears intact. Patient did not appear to be anxious. CN II-XII: Pupils equal round about 4 mm. Fundi not examined. Extraocular muscles intact. Motor and sensory function of face appear to be functioning normally. Hearing swallowing phonation tongue normal. Motor exam: No focal weakness identified. Patient had no complaint of focal weakness. Cerebellar testing: She may have had a slight accentuation of physiologic tremor initially but that went away during the exam. No tremors or ataxia noted. Reflexes 2+ at biceps and knees. Babinski not checked. Sensory exam showed patient appeared to have normal response to tactile and vibratory sense. I was unable to demonstrate sensory changes on today's exam. Station gait was normal. Assessment and Plan Assessment and Plan (1) Migraine NEC/not intrcbl: Status: Chronic Comment: Patient has had particular exacerbation of migraines over the past 2 years associated with perimenopausal changes. Patient did have a history of migraine in the past after age 28. Patient feels that her migraines may be hormonally mediated and she provides history indicating that. Her migraines are not intractable. They do respond to Imitrex for which she doses herself with 50 mg as needed which causes the headaches to resolve in 30 to 45 minutes. She still has migraines several times per month but has recently been started on progesterone which may be altering the character and frequency of headache. I did recommend that she would consider using magnesium oxide 400 mg p.o. daily or perhaps an alte (more content not included)... Normal [facility] 25(OH)D3 [facility] 2024 25-hydroxyvitam in D3 [Mass/Vol] 42.8 ng/mL Normal 31.0-80.0 [facility] Comment on above: Order Comment: Specimen Type: BLOOD SPEC IMEN Ordering Facility: [facility] Address: [address] [facility] [address] [address] Result Comment: Clas sification of 25 [place] Vitamin D status: Deficiency/Insufficiency: < or = 30 ng/ml. Sufficiency/Optimal Levels: 31-80 ng/mL Toxicity: > 100 ng/mL. Test performed by chemiluminescent immunoassay. Performed By: #### 1 989-3 #### [facility] CLIA [id number] [address] [place] [address] [place] CBC W Auto Differential pane l (Bld)on 06-25-2024 Basophils (Bld) [#/Vol] 0.05 10*3/uL Normal <0.11 [facility] Comment on above: Order Comment: Specimen Type: BLOOD SPEC IMEN Ordering Facility: [facility] Address: [address] [facility] [address] [place] [address] Performed By: #### 3 016-3, 8 #### [facility] CLIA [id number] [address] [place] [address] [place] Basophils/100 WBC (Bld) 0.8 % Normal [facility] Comment on above: Order Comment: Specimen Type: BLOOD SPEC IMEN Ordering Facility: [facility] Address: [address], [place] [address] Performed By: #### 3 016-3, 8 #### [facility] CLIA [id number] [address] [place], [place] [address] [place] Differential cell count method Nom (Bld) Auto Normal [facility] Comment on above: Order Comment: Specimen Type: BLOOD SPEC IMEN Ordering Facility: [facility] Address: [address], [place] [address] Performed By: #### 3 -3, 8 #### [facility] IA [id number] [address] [place] [address] [place] Eosinophils (Bld) [#/Vol] 0.26 10*3/uL Normal <0.46 [facility] Comment on above: Order Comment: Specimen Type: BLOOD SPEC IMEN Ordering Facility: [facility] Address: [address], [place] [address] Performed By: #### 3 -3, 8 #### [facility] IA [id number] [address] [address] [place] Eosinophils/100 WBC (Bld) 4.0 % Normal [facility] Comment on above: Order Comment: Specimen Type: BLOOD SPEC IMEN Ordering Facility: [facility] Address: [address], [place] [address] Performed By: #### 3 016-3, 2985-8 #### [facility] CLIA [id number] [address] [place], [place] [address] [place] Erythrocyte distribution width (RBC) [Ratio] 12.3 % Normal 11.5-15.0 [facility] Comment on above: Order Comment: Specimen Type: BLOOD SPEC IMEN Ordering Facility: [facility] Address: [facility] [address] [facility], [place] [address] Performed By: #### 3 016-3, 2986-8 #### [facility] IA [id number] [address] [place], [place] [address] [place] Hematocrit (Bld) [Volume fraction] 43.0 % Normal 36.0-46.0 [facility] Comment on above: Order Comment: Specimen Type: BLOOD SPEC IMEN Ordering Facility: [facility] Address: [address] [place], [place] [address] [place] [address] Performed By: #### 3 016-3, 298-8 #### [facility] CLIA [id number] [address] [place], [place] [address] [place] Hemoglobin (Bld) [Mass/Vol] 14.3 g/dL Normal 11.5-15.5 [facility] Comment on above: Order Comment: Specimen Type: BLOOD SPEC IMEN Ordering Facility: [facility] Address: [address] [place], [place] [address] [facility], [place] [address] Performed By: #### 3 016-3, 2986-8 #### [facility] IA [id number] [address] [place], [place] [address] [place] Immature granulocytes (Bld) [#/Vol] 10*3/uL Normal <0.10 [facility] Comment on above: Order Comment: Specimen Type: BLOOD SPEC IMEN Ordering Facility: [facility] Address: [address] [place], [place] [address], [place] [address] Performed By: #### 3 016-3, 2986-8 #### [facility] CLIA [id number] [address] [place], [place] [address] [place] Immature granulocytes/10 0 WBC (Bld) 0.2 % Normal [facility] Comment on above: Order Comment: Specimen Type: BLOOD SPEC IMEN Ordering Facility: [facility] Address: [address] [place], [place] [address] [address] Performed By: #### 3 016-3, 2986-8 #### [facility] IA [id number] [address] [place], [place] [address] [place] Lymphocytes (Bld) [#/Vol] 1.58 10*3/uL Normal 1.00-4.00 [facility] Comment on above: Order Comment: Specimen Type: BLOOD SPEC IMEN Ordering Facility: [facility] Address: [address] [place] [address] Performed By: #### 3 016-3, 2986-8 #### [facility] IA [id number] [address] [place], [place] [address] [place] Lymphocytes/100 WBC (Bld) 24.1 % Normal [facility] Comment on above: Order Comment: Specimen Type: BLOOD SPEC IMEN Ordering Facility: [facility] Address: [address] [place] [address], [place] [address] Performed By: #### 3 016-3, 2986-8 #### [facility] IA [id number] [address] [place] [address] [place] MCH (RBC) [Entitic mass] 28.5 pg Normal 26.0-34.0 [facility] Comment on above: Order Comment: Specimen Type: BLOOD SPEC IMEN Ordering Facility: [facility] Address: [address] [place] [address] [facility] [place] [address] Performed By: #### 3 016-3, 2986-8 #### [facility] IA [id number] [address] [address] [place] MCHC (RBC) [Mass/Vol] 33.3 g/dL Normal 30.5-36.0 [facility] Comment on above: Order Comment: Specimen Type: BLOOD SPEC IMEN Ordering Facility: [facility] Address: [facility] [address] [facility], [place] [address] Performed By: #### 3 016-3, 2986-8 #### [facility] CLIA [id number] [address] [address] [place] MCV (RBC) [Entitic vol] 85.8 fL Normal 80.0-100.0 [facility] Comment on above: Order Comment: Specimen Type: BLOOD SPEC IMEN Ordering Facility: [facility] Address: [address] [place], [place] [address] [facility], [place] [address] Performed By: #### 3 016-3, 298-8 #### [facility] CLIA [id number] [address] [place], [place] [address] [place] Monocytes (Bld) [#/Vol] 0.52 10*3/uL Normal <0.87 [facility] Comment on above: Order Comment: Specimen Type: BLOOD SPEC IMEN Ordering Facility: [facility] Address: [address] [place], [place] [address], [facility] [place] [address] Performed By: #### 3 016-3, 298-8 #### [facility] CLIA [id number] [address] [place] [address] [place] Monocytes/100 WBC (Bld) 7.9 % Normal [facility] Comment on above: Order Comment: Specimen Type: BLOOD SPEC IMEN Ordering Facility: [facility] Address: [address] [place] [address], [facility] [place] [address] Performed By: #### 3 016-3, 2986-8 #### [facility] CLIA [id number] [address] [address] [place] Neutrophils (Bld) [#/Vol] 4.14 10*3/uL Normal 1.45-7.50 [facility] Comment on above: Order Comment: Specimen Type: BLOOD SPEC IMEN Ordering Facility: [facility] Address: [address] [facility], [facility] [place] [address] Performed By: #### 3 016-3, 2986-8 #### [facility] CLIA [id number] [address] [place] [id number] [place] Neutrophils/100 WBC (Bld) 63.0 % Normal [facility] Comment on above: Order Comment: Specimen Type: BLOOD SPEC IMEN Ordering Facility: [facility] Address: [facility] [address] [facility], [facility] [place] [address] Performed By: #### 3 016-3, 2986-8 #### [facility] CLIA [id number] [address] [place], [place] [address] [place] Nucleated RBC (Bld) [#/Vol] 10*3/uL Normal <0.01 [facility] Comment on above: Order Comment: Specimen Type: BLOOD SPEC IMEN Ordering Facility: [facility] Address: [address] [place], [place] [address], [place] [address] Performed By: #### 3 016-3, 2986-8 #### [facility] CLIA [id number] [address] [place], [place] [address] [place] Nucleated RBC/100 WBC (Bld) [Ratio] 0.0 /100 WBC Normal [facility] Comment on above: Order Comment: Specimen Type: BLOOD SPEC IMEN Ordering Facility: [facility] Address: [address] [place] [address] Performed By: #### 3 016-3, 2986-8 #### [facility] CLIA [id number] [address] [address] [place] Platelet mean volume (Bld) [Entitic vol] 10.4 fL Normal 9.0-12.7 [facility] Comment on above: Order Comment: Specimen Type: BLOOD SPEC IMEN Ordering Facility: [facility] Address: [address] [place], [place] [address], [place] [address] Performed By: #### 3 016-3, 2986-8 #### [facility] CLIA [id number] [address] [place], [place] [address] [place] Platelets (Bld) [#/Vol] 410 10*3/uL High 150-400 [facility] Comment on above: Order Comment: Specimen Type: BLOOD SPEC IMEN Ordering Facility: [facility] Address: [address] [place], [place] [address] , [place] [address] Performed By: #### 3 016-3, 2986-8 #### [facility] CLIA [id number] [address] [place], [place] [address] [place] RBC (Bld) [#/Vol] 5.01 10*6/uL Normal 3.90-5.20 [facility] Comment on above: Order Comment: Specimen Type: BLOOD SPEC IMEN Ordering Facility: [facility] Address: [address] [place] [address], [place] [address] Performed By: #### 3 016-3, 2986-8 #### [facility] CLIA [id number] [address] [place] [address] [place] WBC (Bld) [#/Vol] 6.56 10*3/uL Normal 3.70-11.00 [facility] Comment on above: Order Comment: Specimen Type: BLOOD SPEC IMEN Ordering Facility: [facility] Address: [address] [place], [place] [address] , [place] [address] Performed By: #### 3 016-3, 2986-8 #### [facility] CLIA [id number] [address] [place] [address] [place] [address] [place] Comprehensive metabolic 2000 panelon 06-25-2024 Albumin [Mass/Vol] 4.4 g/dL Normal 3.9-4.9 [facility] Comment on above: Order Comment: Specimen Type: BLOOD SPEC IMEN Ordering Facility: [facility] Address: [address] [place] [address] Performed By: #### 2 4323-8, DHEAS, 2243-4, 30601-3 #### [facility] IA [id number] [address] [place] [address] [place] [address] [place] ALP [Catalytic activity/Vol] 49 U/L Normal 34-123 [facility] Comment on above: Order Comment: Specimen Type: BLOOD SPEC IMEN Ordering Facility: [facility] Address: [address] [place] [address] Performed By: #### 2 4323-8, DHEAS, 224-4, 82919-3 #### [facility] IA [id number] [address] [place] [address] [place] [address] [place] ALT [Catalytic activity/Vol] 13 U/L Normal 7-38 [facility] Comment on above: Order Comment: Specimen Type: BLOOD SPEC IMEN Ordering Facility: [facility] Address: [address] [place], [place] [address], [place] [address] Performed By: #### 2 4323-8, DHEAS, 2243-4, 74702-6 #### [facility] IA [id number] [address] [place] [address] [place] [address] [place] Anion gap [Moles/Vol] 12 mmol/L Normal 8-15 [facility] Comment on above: Order Comment: Specimen Type: BLOOD SPEC IMEN Ordering Facility: [facility] Address: [address] [place] [address], [place] [address] Performed By: #### 2 4323-8, DHEAS, 2243-4, 60086-4 #### [facility] CLIA [id number] [address] [place] [address] [place] [address] [place] AST [Catalytic activity/Vol] 18 U/L Normal 13-35 [facility] Comment on above: Order Comment: Specimen Type: BLOOD SPEC IMEN Ordering Facility: [facility] Address: [facility] [address] [facility], [place] [address] Performed By: #### 2 4323-8, DHEAS, 2243-4, 43762-3 #### [facility] IA [id number] [address] [place] [address] [place] Bilirubin [Mass/Vol] 0.3 mg/dL Normal 0.2-1.3 [facility] Comment on above: Order Comment: Specimen Type: BLOOD SPEC IMEN Ordering Facility: [facility] Address: [address] [place] [address], [facility] [place] [address] Performed By: #### 2 4323-8, DHEAS, 2243-4, 41427-7 #### [facility] IA [id number] [address] [place] [address] [place] Calcium [Mass/Vol] 9.8 mg/dL Normal 8.5-10.2 [facility] Comment on above: Order Comment: Specimen Type: BLOOD SPEC IMEN Ordering Facility: [facility] Address: [facility] [address] [facility], [place] [address] Performed By: #### 2 4323-8, DHEAS, 2243-4, 20643-8 #### [facility] IA [id number] [address] [place] [address] [place] Chloride [Moles/Vol] 105 mmol/L Normal 98-107 [facility] Comment on above: Order Comment: Specimen Type: BLOOD SPEC IMEN Ordering Facility: [facility] Address: [address] [place] [address] [place] [address] Performed By: #### 2 4323-8, DHEAS, 2243-4, 02167-0 #### [facility] IA [id number] [address] [place] [address] [place] CO2 [Moles/Vol] 23 mmol/L Normal 22-30 [facility] Comment on above: Order Comment: Specimen Type: BLOOD SPEC IMEN Ordering Facility: [facility] Address: [address] [place] [address], [place] [address] Performed By: #### 2 4323-8, DHEAS, 2243-4, 52544-4 #### [facility] IA [id number] [address] [place] [address] [place] Creatinine [Mass/Vol] 0.85 mg/dL Normal 0.58-0.96 [facility] Comment on above: Order Comment: Specimen Type: BLOOD SPEC IMEN Ordering Facility: [facility] Address: [address] [place] [address], [place] [address] Performed By: #### 2 4323-8, DHEAS, 2243-4, 85210-8 #### [facility] IA [id number] [address] [place] [address] [place] Creatinine and Glomerular filtration rate.predicted panel (S/P/Bld) 83 mL/min/1.73m??? Normal >=60 [facility] Comment on above: Order Comment: Specimen Type: BLOOD SPEC IMEN Ordering Facility: [facility] Address: [address] [place] [address], [place] [address] Result Comment: Trina mated Glomerular Filtration Rate (eGFR) is calculated using the 2020 CKD-EPI creatinine equation. This equation utilizes serum creatinine, sex, and age as parameters. The creatinine assay has traceable calibration to isotope dilution-mass spectrometry. Refer to KDIGO guidelines for clinical interpretation. In patients with unstable renal function, e.g. those with acute kidney injury, the eGFR may not accurately reflect actual GFR. Performed By: #### 2 4323-8, DHEAS, 2242-, 14287-0 #### [facility] CLIA [id number] [address] [address] [place] Glucose [Mass/Vol] 67 mg/dL Low 74-99 [facility] Comment on above: Order Comment: Specimen Type: BLOOD SPEC IMEN Ordering Facility: [facility] Address: [address] [place] [address] Result Comment: The [place] [employer] (ADA) provides guidance for cutoff values for fasting glucose and random glucose. The ADA defines fasting as no caloric intake for at least 8 hours. Fasting plasma glucose results between 100 to 125 mg/dL indicate increased risk for diabetes (prediabetes). Fasting plasma glucose results greater than or equal to 126 mg/dL meet the criteria for diagnosis of diabetes. In the absence of unequivocal hyperglycemia, results should be confirmed by repeat testing. In a patient with classic symptoms of hyperglycemia or hyperglycemic crisis, random plasma glucose results greater than or equal to 200 mg/dL meet the criteria for diagnosis of diabetes. Reference: Standards of Medical Care in Diabetes 2016, [place] [employer]. Diabetes Care. 2016.39(Suppl 1). Performed By: #### 2 4323-8, DHEAS, 2242-07, 22393-2 #### [facility] CLIA [id number] [address] [address] [place] Potassium [Moles/Vol] 4.3 mmol/L Normal 3.7-5.1 [facility] Comment on above: Order Comment: Specimen Type: BLOOD SPEC IMEN Ordering Facility: [facility] Address: [address] [facility] [place] [address] Performed By: #### 2 4323-8, DHEAS, 2242-07, 87142-6 #### [facility] CLIA [id number] [address] [address] [place] Protein [Mass/Vol] 7.3 g/dL Normal 6.3-8.0 [facility] Comment on above: Order Comment: Specimen Type: BLOOD SPEC IMEN Ordering Facility: [facility] Address: [address] [place] [address] Performed By: #### 2 4323-8, DHEAS, 2243-4, 99404-9 #### [facility] CLIA [id number] [address] [place] [address] [place] Sodium [Moles/Vol] 140 mmol/L Normal 136-144 [facility] Comment on above: Order Comment: Specimen Type: BLOOD SPEC IMEN Ordering Facility: [facility] Address: [address] [place], [place] [address] [address] Performed By: #### 2 4323-8, DHEAS, 2243-4, 36454-1 #### [facility] IA [id number] [address] [place], [place] [address] [place] Urea nitrogen [Mass/Vol] 11 mg/dL Normal 7-21 [facility] Comment on above: Order Comment: Specimen Type: BLOOD SPEC IMEN Ordering Facility: [facility] Address: [address] [place] [address] Performed By: #### 2 4323-8, DHEAS, 2243-4, 21808-7 #### [facility] CLIA [id number] [address] [place] [address] [place] [facility]HEA-S [Mass/Vol] 232.9 ug/dL Normal 35.4-256.0 [facility] Comment on above: Order Comment: Specimen Type: BLOOD SPEC IMEN Ordering Facility: [facility] Address: [address] [place] [address] Result Comment: Refe rence ranges are age and gender specific. For additional information, reference range tables can be found in the laboratory test directory. The normal values are based on the following source: Dehydroepiandrosterone sulfate (DHEA S) [package insert V 17.0 Citizen [place]]. [email or web address], [place], [place]: November 2012. Performed By: #### 2 4323-8, DHEAS, 2243-4, 68562-5 #### [facility] CLIA [id number] [address] [place], [place] [address] [place] Estradiol SerPl-mCncon 06-25 E2 [Mass/Vol] 117 pg/mL Normal [facility] Comment on above: Order Comment: Specimen Type: BLOOD SPEC IMEN Ordering Facility: [facility] Address: [address] [place] [address] Result Comment: This test is not suitable for patients receiving treatment with the drug Fulvestrant (Faslodex). The drug causes an interference leading to falsely elevated estradiol results. Menstrual cycle Estradiol reference ranges: Follicular : < 234 pg/mL Ovulation : 41 to 398 pg/mL Luteal : < 342 pg/mL Estradiol reference ranges vary by gestational period: First trimester : 154 to 3243 pg/mL Second trimester : 1561 to 38075 pg/mL Third trimester : 8285 to >56544 pg/mL Post-menopausal Estradiol reference range: < 41 pg/mL Reference: 1. Estradiol - E2 (Estradiol III) [package insert V 3.0 Citizen [place]]. [email or web address], [place], [place], September 2015. Performed By: #### 2 4323-8, DHEAS, 2243-4, 70316-9 #### [facility] CLIA [id number] [address] [place], [place] [address] [place] FSH SerPl-aCncon 06-25-2024 Follitropin Qn 11.3 m[IU]/mL Normal See comment [facility] Comment on above: Order Comment: Specimen Type: BLOOD SPEC IMEN Ordering Facility: [facility] Address: [address] [place] [address] Result Comment: Refe rence range: Follicular: 3.5-12.5 mIU/mL Ovulation: 4.7-21.5 mIU/mL Luteal: 1.7-7.7 mIU/mL Postmenopausal: 25.8-134.8 mIU/mL Performed By: #### 2 4323-8, DHEAS, 2243-4, 48382-4 #### [facility] CLIA [id number] [address] [address] [facility] [place] Lipid 1996 panelon 5 Cholesterol [Mass/Vol] 198 mg/dL Normal <200 [facility] Comment on above: Order Comment: Specimen Type: BLOOD SPEC IMEN Ordering Facility: [facility] Address: [address] [place], [place] [address] [address] Result Comment: <200 mg/dL, Desirable 200-239 mg/dL, Borderline high >239 mg/dL, High Performed By: #### 2 4323-8, DHEAS, 3-4, 94359-6 #### [facility] CLIA [id number] [address] [address] [place] Cholesterol in HDL [Mass/Vol] 44 mg/dL Normal >39 [facility] Comment on above: Order Comment: Specimen Type: BLOOD SPEC IMEN Ordering Facility: [facility] Address: [address] [place] [address] Result Comment: 40-5 9 mg/dL, Acceptable >59 mg/dL, High: Negative risk factor for coronary heart disease <40 mg/dL, Low: Positive risk factor for coronary heart disease Performed By: #### 2 4323-8, DHEAS, 3-4, 57977-7 #### [facility] CLIA [id number] [address] [address] [place] Cholesterol in LDL [Mass/Vol] 137 mg/dL High <100 [facility] Comment on above: Order Comment: Specimen Type: BLOOD SPEC IMEN Ordering Facility: [facility] Address: [address] [place] [address] Result Comment: <100 mg/dL, Optimal 100-129 mg/dL, Near optimal/above optimal 130-159 mg/dL, Borderline high 160-189 mg/dL, High >189 mg/dL, Very high Secondary prevention optimal LDL Cholesterol levels are recommended to be < 70 mg/dL Performed By: #### 2 4323-8, DHEAS, 2243-4, 65321-6 #### [facility] CLIA [id number] [address] [place] [address] [place] Cholesterol in LDL/Cholesterol in HDL [Mass ratio] 3.11 {ratio} High <2.54 [facility] Comment on above: Order Comment: Specimen Type: BLOOD SPEC IMEN Ordering Facility: [facility] Address: [address] [place] [address] Result Comment: Refe rence: 1. National Cholesterol Education Program ATP III Guideline At-A-Glance Quick Desk Reference: National Heart, Lung, and Blood [place]. National Institutes of Health. 2001: NIH Publication No. 01-3305. 2. An International Atherosclerosis Society position paper: global recommendations for the management of dyslipidemia: executive summary, Atherosclerosis. 2014: 232(2):410-413. Performed By: #### 2 4323-8, DHEAS, 2242-4, 70231-8 #### [facility] CLIA [id number] [address] [place] [address] [place] Cholesterol in VLDL [Mass/Vol] 17 mg/dL Normal <30 [facility] Comment on above: Order Comment: Specimen Type: BLOOD SPEC IMEN [facility] Address: [address] [facility], [place] [address] Performed By: #### 2 4323-8, DHEAS, 2242-4, 93845-9 #### [facility] [place] [id number] [address] [place], [place] [address] [place] Cholesterol non HDL [Mass/Vol] 154 mg/dL High <130 [facility] Comment on above: Order Comment: Specimen Type: BLOOD SPEC IMEN [facility] Address: [address] [place] [address] Result Comment: <130 mg/dL, Optimal 130-159 mg/dL, Near optimal/above optimal 160-189 mg/dL, Borderline high 190-219 mg/dL, High >219 mg/dL, Very high Secondary prevention optimal non HDL Cholesterol levels are recommended to be <100 mg/dL Performed By: #### 2 4323-8, DHEAS, 2243-4, 12384-5 #### [facility] CLIA [id number] [address] [place] [address] [place] Cholesterol.tot al/Cholesterol in HDL [Mass ratio] 4.50 {ratio} Normal <5.10 [facility] Comment on above: Order Comment: Specimen Type: BLOOD SPEC IMEN Ordering Facility: [facility] Address: [address] [place] [address] Performed By: #### 2 4323-8, DHEAS, 2242-, 80770-5 #### [facility] CLIA [id number] [address] [place], [place] [address] [place] FASTING TIME 10 hrs Normal [facility] Comment on above: Order Comment: Specimen Type: BLOOD SPEC IMEN [facility] Address: [address] [place] [address] Performed By: #### 2 4323-8, DHEAS, 2242-07, 75888-9 #### [facility] IA [id number] [address] [place] [address] [place] Triglyceride [Mass/Vol] 84 mg/dL Normal <150 [facility] Comment on above: Order Comment: Specimen Type: BLOOD SPEC IMEN Ordering Facility: [facility] Address: [address] [place] [address] Result Comment: <150 mg/dL, Normal 150-199 mg/dL, Borderline high 200-499 mg/dL, High >499 mg/dL, Very high Performed By: #### 2 4323-8, DHEAS, 2243-4, 28889-7 #### [facility] CLIA [id number] [address] [place], [place] [address] [place] Progest SerPl-mCncon 025 Progesterone [Mass/Vol] 1.3 ng/mL Normal See comment [facility] Comment on above: Order Comment: Specimen Type: BLOOD SPEC IMEN Ordering Facility: [facility] Address: [address] [place] [address] Result Comment: Mens trual Cycle Progesterone Reference Ranges: Follicular: <1.0 ng/mL Ovulation: <12.1 ng/mL Luteal: 1.8 to 23.9 ng/mL. Progesterone Reference Ranges vary by gestational period: First Trimester: 11.0 to 44.3 ng/mL Second Trimester: 25.4 to 83.3 ng/mL Third Trimester: 58.7 to 214 ng/mL Post menopausal Progesterone: <0.5 ng/mL Reference: 1. Progesterone (Progesterone III) [package insert V 1.0 Citizen [place]]. [employer], [place], [place]. January 2015. Performed By: #### 2 4323-8, DHEAS, 2243-4, 14022-9 #### [facility] CLIA [id number] [address] [place], [place] [address] [place] REVERSE T3on 06-25-2024 REVERSE T3 14.5 ng/dL Normal 9.0-27.0 [facility] Comment on above: Order Comment: Specimen Type: BLOOD SPEC IMEN Ordering Facility: [facility] Address: [address] [place] [address] Result Comment: INTE RPRETIVE INFORMATION: Triiodothyronine, Reverse - LC-MS/MS This test was developed and its performance characteristics determined by [facility]. It has not been cleared or approved by the US Food and Drug Administration. This test was performed in a CLIA certified laboratory and is intended for clinical purposes. Performed By: [facility] [address] [place] [address] Director Family: Van Askew MD, PhD CLIA Number: [id number] Performed By: #### T 3REV #### [id number] [address] [place] [address] THYROGLOBULIN ANTIBODYon Thyroglobulin Ab Qn 107.1 [IU]/mL High <4.0 [facility] Comment on above: Order Comment: Specimen Type: BLOOD SPEC IMEN Ordering Facility: [facility] Address: [address] [place] [address] Result Comment: The Thyroglobulin Antibody test was performed using the OQVestirel DXI paramagnetic particle chemiluminescent immunoassay method. Results obtained with different assay methods or kits cannot be used interchangeably. Performed By: #### 3 016-3, 2986-8 #### [facility] CLIA [id number] [address] [place] [address] [place] THYROID PEROXIDASE ANTIBODYo n 06-25-2024 TPO Ab Qn 17.3 [IU]/mL High <5.6 [facility] Comment on above: Order Comment: Specimen Type: BLOOD SPEC IMEN Ordering Facility: [facility] Address: [address] [place] [address] Result Comment: Thyr oid Peroxidase Antibody test is used as an aid in diagnosis of autoimmune thyroid disease. Clinical correlation is required. Performed By: #### M ICRO #### [facility] CLIA [id number] [address] [place] [address] [place] TSH SerPl-aCncon 06-25-2024 TSH Qn 0.628 m[IU]/L Normal 0.270-4.20 0 [facility] Comment on above: Order Comment: Specimen Type: BLOOD SPEC IMEN Ordering Facility: [facility] Address: [address] [place], [place] [address] Performed By: #### 2 4323-8, DHEAS, 2243-4, 08136-7 #### [facility] CLIA [id number] [address] [place] [address] [place] Testost [facility] 025 Testosterone [Mass/Vol] 34 ng/dL Normal <40 [facility] Comment on above: Order Comment: Specimen Type: BLOOD SPEC IMEN Ordering Facility: [facility] Address: [address] [facility] [place] [address] Performed By: #### 2 4323-8, DHEAS, 2243-4, 92473-0 #### [facility] CLIA [id number] [address] [place] [address] [place] Vit B12 SerPl-mCncon 025 Cobalamin (Vitamin B12) [Mass/Vol] 606 pg/mL Normal 232-1245 [facility] Comment on above: Order Comment: Specimen Type: BLOOD SPEC IMEN Ordering Facility: [facility] Address: [address] [facility] [place] [place] [address] Performed By: #### 2 4323-8, DHEAS, 2243-4, 71947-8 #### [facility] CLIA [id number] [address] [place] [address] [place] Basic metabolic 2000 panelon 05-17-2024 Anion gap [Moles/Vol] 11 mmol/L Normal 8-15 [facility] Comment on above: Order Comment: Specimen Type: BLOOD SPEC IMEN Ordering Facility: [facility] Address: [address] [facility] [place] [address] Performed By: #### 2 4323-8, DHEAS, 2243-4, 99938-7 #### [facility] IA [id number] [address] [address] [place] Calcium [Mass/Vol] 9.4 mg/dL Normal 8.5-10.2 [facility] Comment on above: Order Comment: Specimen Type: BLOOD SPEC IMEN Ordering Facility: [facility] Address: [address], [place] [address] Performed By: #### 2 4323-8, DHEAS, 2243-4, 87223-2 #### [facility] CLIA [id number] [address] [place] [address] [place] Chloride [Moles/Vol] 103 mmol/L Normal 98-107 [facility] Comment on above: Order Comment: Specimen Type: BLOOD SPEC IMEN Ordering Facility: [facility] Address: [address] [place] [address] SW, [place] [address] Performed By: #### 2 4323-8, DHEAS, 2243-4, 90691-7 #### [facility] IA [id number] [address] [place], [place] [address] [place] CO2 [Moles/Vol] 25 mmol/L Normal 22-30 [facility] Comment on above: Order Comment: Specimen Type: BLOOD SPEC IMEN Ordering Facility: [facility] Address: [address] [place] [address] SW, [place] [address] Performed By: #### 2 4323-8, DHEAS, 2243-4, 81108-1 #### [facility] IA [id number] [address] [place], [place] [address] [place] Creatinine [Mass/Vol] 0.82 mg/dL Normal 0.58-0.96 [facility] Comment on above: Order Comment: Specimen Type: BLOOD SPEC IMEN Ordering Facility: [facility] Address: [address] [place] [address] SW, [place] [address] Performed By: #### 2 4323-8, DHEAS, 2243-4, 61843-8 #### [facility] IA [id number] [address] [place] [address] [place] Creatinine and Glomerular filtration rate.predicted panel (S/P/Bld) 87 mL/min/1.73m??? Normal >=60 [facility] Comment on above: Order Comment: Specimen Type: BLOOD SPEC IMEN Ordering Facility: [facility] Address: [address] [place] [address] Result Comment: Trina mated Glomerular Filtration Rate (eGFR) is calculated using the 2020 CKD-EPI creatinine equation. This equation utilizes serum creatinine, sex, and age as parameters. The creatinine assay has traceable calibration to isotope dilution-mass spectrometry. Refer to KDIGO guidelines for clinical interpretation. In patients with unstable renal function, e.g. those with acute kidney injury, the eGFR may not accurately reflect actual GFR. Performed By: #### 2 4323-8, DHEAS, 224-4, 16761-1 #### [facility] CLIA [id number] [address] [place] [address] [place] Glucose [Mass/Vol] 93 mg/dL Normal 74-99 [facility] Comment on above: Order Comment: Specimen Type: BLOOD SPEC IMEN Ordering Facility: [facility] Address: [address] [place] [address] Result Comment: The [place] Diabetes Association (ADA) provides guidance for cutoff values for fasting glucose and random glucose. The ADA defines fasting as no caloric intake for at least 8 hours. Fasting plasma glucose results between 100 to 125 mg/dL indicate increased risk for diabetes (prediabetes). Fasting plasma glucose results greater than or equal to 126 mg/dL meet the criteria for diagnosis of diabetes. In the absence of unequivocal hyperglycemia, results should be confirmed by repeat testing. In a patient with classic symptoms of hyperglycemia or hyperglycemic crisis, random plasma glucose results greater than or equal to 200 mg/dL meet the criteria for diagnosis of diabetes. Reference: Standards of Medical Care in Diabetes 2016, [place] Diabetes Association. Diabetes Care. 2016.39(Suppl 1). Performed By: #### 2 4323-8, DHEAS, 2243-4, 27676-1 #### [facility] CLIA [id number] [address] [place] [address] [place] Potassium [Moles/Vol] 4.2 mmol/L Normal 3.7-5.1 [facility] Comment on above: Order Comment: Specimen Type: BLOOD SPEC IMEN Ordering Facility: [facility] Address: [address] [facility] [place] [address] Performed By: #### 2 4323-8, DHEAS, 2242-07, 10800-0 #### [facility] CLIA [id number] [address] [place] [address] [place] Sodium [Moles/Vol] 139 mmol/L Normal 136-144 [facility] Comment on above: Order Comment: Specimen Type: BLOOD SPEC IMEN Ordering Facility: [facility] Address: [facility] [address] [facility] [place] [address] Performed By: #### 2 4323-8, DHEAS, 2242-07, 97378-0 #### [facility] IA [id number] [address] [place] [address] [place] [address] [place] Urea nitrogen [Mass/Vol] 13 mg/dL Normal 7-21 [facility] Comment on above: Order Comment: Specimen Type: BLOOD SPEC IMEN Ordering Facility: [facility] Address: [facility] [address] [facility] [address] Performed By: #### 2 432-8, DHEAS, 2242-07, 16019-5 #### [facility] IA [id number] [address] [place] [address] [place] [address] [place] T3Free SerPl-mCncon 05-17-19 25 Free T3 [Mass/Vol] 3.8 pg/mL Normal 2.3-4.1 [facility] Comment on above: Order Comment: Specimen Type: BLOOD SPEC IMEN Ordering Facility: [facility] Address: [address] [facility] [place] [address] Performed By: #### 2 4323-8, DHEAS, 2242-07, 06637-4 #### [facility] CLIA [id number] [address] [place] [address] [place] T4 Free SerPl-mCncon 025 Free T4 [Mass/Vol] 1.4 ng/dL Normal 0.9-1.7 [facility] Comment on above: Order Comment: Specimen Type: BLOOD SPEC IMEN Ordering Facility: [facility] Address: [address] [place] [address] Performed By: #### 2 4323-8, DHEAS, 2242-4, 67621-3 #### [facility] CLIA [id number] [address] [place], [place] [address] [place] TSH SerPl-aCncon 05-17-2024 TSH Qn 0.164 m[IU]/L Low 0.270-4.20 0 [facility] Comment on above: Order Comment: Specimen Type: BLOOD SPEC IMEN Ordering Facility: [facility] Address: [address] [place] [address] Result Comment: If t he patient is , TSH reference range varies by gestational period: First Trimester (weeks 9-12): 0.180-2.990 mIU/L Second Trimester: 0.110-3.980 mIU/L Third Trimester: 0.480-4.710 mIU/L Daniel Gray et al. A Practical Approach for the Verifications and Determination of Site- and Trimester-Specific Reference Intervals for Thyroid Function tests in . Thyroid, 2019:29:3:412-420. Eron Spence, et al. 2017 Guidelines of the [place] Thyroid Association for the Diagnosis and Management of Thyroid Disease during and the . Thyroid, 2017:27:3:315-389. Performed By: #### 2 4323-8, DHEAS, 2243-4, 01922-6 #### [facility] CLIA [id number] [address] [place], [place] [address] [place] Basic metabolic 2000 panelon 11-17-2023 Anion gap [Moles/Vol] 10 mmol/L Normal 8-15 [facility] Comment on above: Order Comment: Specimen Type: BLOOD SPEC IMEN Ordering Facility: [facility] Address: [address] [facility], [place] [address] Performed By: #### 3 016-3, 2988 #### [facility] CLIA [id number] [address] [place] [address] [place] Calcium [Mass/Vol] 9.4 mg/dL Normal 8.5-10.2 [facility] Comment on above: Order Comment: Specimen Type: BLOOD SPEC IMEN Ordering Facility: [facility] Address: [address] [facility], [place] [address] Performed By: #### 3 016-3, 8 #### [facility] CLIA [id number] [address] [place] [address] [place] Chloride [Moles/Vol] 104 mmol/L Normal 98-107 [facility] Comment on above: Order Comment: Specimen Type: BLOOD SPEC IMEN Ordering Facility: [facility] Address: [address] [facility], [place] [address] Performed By: #### 3 016-3, 8 #### [facility] IA [id number] [address] [place] [address] [place] CO2 [Moles/Vol] 24 mmol/L Normal 22-30 [facility] Comment on above: Order Comment: Specimen Type: BLOOD SPEC IMEN Ordering Facility: [facility] Address: [address] [facility], [place] [address] Performed By: #### 3 016-3, 298-8 #### [facility] CLIA [id number] [address] [place] [address] [place] Creatinine [Mass/Vol] 0.79 mg/dL Normal 0.58-0.96 [facility] Comment on above: Order Comment: Specimen Type: BLOOD SPEC IMEN Ordering Facility: [facility] Address: [address] [place] [address] Performed By: #### 3 016-3, 2986-8 #### [facility] CLIA [id number] [address] [place], [place] [address] [place] Creatinine and Glomerular filtration rate.predicted panel (S/P/Bld) 91 mL/min/1.73m??? Normal >=60 [facility] Comment on above: Order Comment: Specimen Type: BLOOD SPEC IMEN Ordering Facility: [facility] Address: [address] [place] [address] Result Comment: Trina mated Glomerular Filtration Rate (eGFR) is calculated using the 2020 CKD-EPI creatinine equation. This equation utilizes serum creatinine, sex, and age as parameters. The creatinine assay has traceable calibration to isotope dilution-mass spectrometry. Refer to KDIGO guidelines for clinical interpretation. In patients with unstable renal function, e.g. those with acute kidney injury, the eGFR may not accurately reflect actual GFR. Performed By: #### 3 016-3, 2986-8 #### [facility] CLIA [id number] [address] [address] [place] Glucose [Mass/Vol] 94 mg/dL Normal 74-99 [facility] Comment on above: Order Comment: Specimen Type: BLOOD SPEC IMEN Ordering Facility: [facility] Address: [address] [place] [address] Result Comment: The [place] Diabetes Association (ADA) provides guidance for cutoff values for fasting glucose and random glucose. The ADA defines fasting as no caloric intake for at least 8 hours. Fasting plasma glucose results between 100 to 125 mg/dL indicate increased risk for diabetes (prediabetes). Fasting plasma glucose results greater than or equal to 126 mg/dL meet the criteria for diagnosis of diabetes. In the absence of unequivocal hyperglycemia, results should be confirmed by repeat testing. In a patient with classic symptoms of hyperglycemia or hyperglycemic crisis, random plasma glucose results greater than or equal to 200 mg/dL meet the criteria for diagnosis of diabetes. Reference: Standards of Medical Care in Diabetes 2016, [place] Diabetes [employer]. Diabetes Care. 2016.39(Suppl 1). Performed By: #### 3 016-3, 298-8 #### [facility] CLIA [id number] [address] [place], [place] [address] [place] Potassium [Moles/Vol] 4.3 mmol/L Normal 3.7-5.1 [facility] Comment on above: Order Comment: Specimen Type: BLOOD SPEC IMEN [facility] Address: [address] [place] [address] Performed By: #### 3 016-3, 2988 #### [facility] CLIA [id number] [address] [place] [place], [place] [id number] [place] Sodium [Moles/Vol] 138 mmol/L Normal 136-144 [facility] Comment on above: Order Comment: Specimen Type: BLOOD SPEC IMEN Ordering Facility: [facility] Address: [address] [place] [address] Performed By: #### 3 016-3, 8 #### [facility] [place] [id number] [address] [place], [place] [id number] [place] Urea nitrogen [Mass/Vol] 13 mg/dL Normal 7-21 [facility] Comment on above: Order Comment: Specimen Type: BLOOD SPEC IMEN Ordering Facility: [facility] Address: [address] [place] [address] Performed By: #### 3 016-3, 8 #### [facility] [place] [id number] [address] [place] [address] [place] T3Free SerPl-mCncon 11-17-19 24 Free T3 [Mass/Vol] 3.3 pg/mL Normal 2.3-4.1 [facility] Comment on above: Order Comment: Specimen Type: BLOOD SPEC IMEN [facility] Address: [address] [place] [address], [place] [address] Performed By: #### 3 016-3, 2985-8 #### [facility] CLIA [id number] [address] [address] [place] T4 Free SerPl-mCncon 024 Free T4 [Mass/Vol] 1.2 ng/dL Normal 0.9-1.7 [facility] Comment on above: Order Comment: Specimen Type: BLOOD SPEC IMEN Ordering Facility: [facility] Address: [address] [facility] [place] [address] Performed By: #### 3 016-3, 8 #### [facility] [place] [id number] [address] [place] [id number] [place] TSH SerPl-aCncon 11-17-2023 TSH Qn 0.466 m[IU]/L Normal 0.270-4.20 0 [facility] Comment on above: Order Comment: Specimen Type: BLOOD SPEC IMEN Ordering Facility: [facility] Address: [facility] [facility] [place] [address] Result Comment: If t he patient is , TSH reference range varies by gestational period: First Trimester (weeks 9-12): 0.180-2.990 mIU/L Second Trimester: 0.110-3.980 mIU/L Third Trimester: 0.480-4.710 mIU/L Daniel Gray et al. A Practical Approach for the Verifications and Determination of Site- and Trimester-Specific Reference Intervals for Thyroid Function tests in . Thyroid, 2019:29:3:412-420. Eron E, et al. 2017 Guidelines of the [place] Thy[employer] Association for the Diagnosis and Management of Thyroid Disease during and the . Thyroid, 2017:27:3:315-389. Performed By: #### 3 016-3, 2986-8 #### [facility] CLIA [id number] [address] [address] [place] XR Chest PA and Lateralon IMPRESSION: Multiple groundglass opacities in the bilateral lungs. The top differential would be multifocal pneumonia. Please clinically correlate. Solar Panel Technician: PSCGirma Transcribe Date/Time: May 30 2023 3:03P Dictated by : KOMAL STEVE MD This examination was interpreted and the report reviewed and electronically signed by: KOMAL STEVE MD on May 30 2023 3:04PM [facility] DIVISION OF RADIOLOGY * * *Final Report* * * DATE OF EXAM: May 30 2023 9:02AM WOX 5291 - XR CHEST 2V FRONTAL/LAT / PROCEDURE REASON: multiple diagnoses * * * * Physician Interpretation * * * * EXAMINATION: CHEST RADIOGRAPH (2 VIEW FRONTAL & LATERAL) CLINICAL HISTORY: LRTI (lower respiratory tract infection) Mild intermittent asthma without complication MQ: XC2_6 EXAM DATE/TIME: 05/30/2023 9:02 AM COMPARISON: Chest x-ray on 04/29/2019 RESULT: Lines, tubes, and devices: None. Lungs and pleura: There are multiple groundglass opacities in the bilateral mid to lower lung zones. No solid mass lesion identified. Questionable left-sided trace pleural effusion. No pneumothorax identified. Cardiomediastinal silhouette: Normal cardiomediastinal silhouette. Bones and soft tissues: Unremarkable. DIVISION OF RADIOLOGY Provider, [facility] - 05/30/2023 * * *Final Report* * * DATE OF EXAM: May 30 2023 9:02AM WOX 5291 - XR CHEST 2V FRONTAL/LAT / PROCEDURE REASON: multiple diagnoses * * * * Physician Interpretation * * * * EXAMINATION: CHEST RADIOGRAPH (2 VIEW FRONTAL & LATERAL) CLINICAL HISTORY: LRTI (lower respiratory tract infection) Mild intermittent asthma without complication MQ: XC2_6 EXAM DATE/TIME: 05/30/2023 9:02 AM COMPARISON: Chest x-ray on 04/29/2019 RESULT: Lines, tubes, and devices: None. Lungs and pleura: There are multiple groundglass opacities in the bilateral mid to lower lung zones. No solid mass lesion identified. Questionable left-sided trace pleural effusion. No pneumothorax identified. Cardiomediastinal silhouette: Normal cardiomediastinal silhouette. Bones and soft tissues: Unremarkable. IMPRESSION IMPRESSION: Multiple groundglass opacities in the bilateral lungs. The top differential would be multifocal pneumonia. Please clinically correlate. Solar Panel Technician: MARCY Transcribe Date/Time: May 30 2023 3:03P Dictated by : KOMAL STEVE MD This examination was interpreted and the report reviewed and electronically signed by: KOMAL STEVE MD on May 30 2023 3:04PM EST [facility] Radiology Study observation (narrative) [facility] XR Chest PA and LateralOrder ed By: [facility] Provider on 05-30-2023 [facility] INFLUENZA A&B MOLECULAR (POC )on 05-16-2023 Flu A (POCT) Negative Negative [facility] Flu B (POCT) Negative Negative [facility] Procedural Control Valid [facility] OPERATIVE NOon 10-29-2021 OPERATIVE NO HNO ID: [id number] Author: French Bruno DPM Service: Podiatry Author Type: Physician Type: Operative Report Filed: 11/14/2021 9:52 PM Note Text: [facility] - Operative Notes SANTIAGO, TRACY : 1975 AGE: 46 SEX: F CSN: [id number] [facility]: LOCATION: [place] [address] ATTENDING PHYSICIAN: FRENCH BRUNO DATE OF SERVICE: 10/28/2021 PREOPERATIVE DIAGNOSES: 1. Chronic plantar fasciitis. 2. Tenosynovitis of flexor muscles in the adductor hallucis muscle along the medial foot. 3. Chronic pain. 4. Neuritis, left foot. POSTOPERATIVE DIAGNOSES: 1. Chronic plantar fasciitis. 2. Tenosynovitis of flexor muscles in the adductor hallucis muscle along the medial foot. 3. Chronic pain. 4. Neuritis, left foot. OPERATION: 1. Plantar fasciectomy, radical, which was entire plantar fascia, use of the Glorieta System. 2. Acell injection with 1500 mL of Acell injected into the plantar fascia of the entire foot. 3. Tenolysis by using this Acell of the left foot. SURGEON: French Bruno DPM MATH AND PHYSICS INSTRUCTOR: Sumanth Paul, PGY-3 HEMOSTASIS: None. ESTIMATED BLOOD LOSS: Less than 30 mL. MATERIALS: Xeroform, dry dressing, Lenard wrap. COMPLICATIONS: None. BRIEF INDICATION FOR PROCEDURE: This patient is a very well-known patient of [facility] who has had chronic plantar fasciitis pain, chronic plantar fasciosis, secondary to her having a surgery that was performed years ago, in which the entire plantar fascia was cut. Ever since then, the patient has not been able to resolve her pain. She is not obese and appears as though she even has back pain and L5-S1 problems, which we are uncertain if this is all related to this, but it appears that her last MRI showed chronic plantar fasciitis. I did recommend at this point to treat this surgically since we have failed all conservative methods consisting of orthotics, injections, physical therapy, anti-inflammatories. Will discuss and recommend surgical intervention. The patient does have pain along the left plantar heel, especially in the medial, intermediate, and central bands of the plantar fascia. She has had chronic pain that has been unable to be resolved with treatment. She continues to have instability of the left heel. She has pain with plantar palpation of the heel, stiffness, and soreness to the heel, and has failed all conservative methods. I recommended surgical intervention. Patient does have pain along the plantar lateral aspect and plantar medial aspect of the left heel. We have tried all conservative methods. I recommend surgical intervention consisting of Glorieta plantar fasciectomy. The patient does understand would recommend surgery at this point. The patient did understand all risks, complications, and benefits of the surgical procedure. All questions were answered. No guarantees were given or implied. DESCRIPTION OF PROCEDURE: Patient was seen in the preoperative holding area. Chart was reviewed and consent was signed. Patient was then taken back to the operating room and placed on the operating table in normal supine position. Once general anesthetic had been obtained, a local block of 0.25% Marcaine plain was injected about the left foot. Left lower extremity was then scrubbed, prepped, and draped in the usual aseptic technique. Timeout was then performed. Glorieta incisions were then made by using a 16-gauge Angiocath tip. Angiocath was then made in multiple holes in such a way to prepare the heel by cutting the plantar fascia, in which the plantar fascia was then cut with the Glorieta. After the holes were then made, the Glorieta was then cut using the wand at 4 luna of power. Multiple holes were then made to the plantar fascia. After cutting this with the plantar fascia, then the fasciectomy had been performed. We performed this in the entire medial, central, and lateral bands of the plantar fascia. After performing this, then the fascia had been cut. At that point then, the 1500 mL of Acell was then mixed into a powder form and then injected to the area of the plantar fascia. All of it was injected properly. Tenolysis of the muscle belly of the adductor hallucis muscle was then performed by injecting the Acell within the muscle itself, wrapped completely with Xeroform dry dressing. She tolerated the procedure well, without complications. Will follow up in the office in 2 weeks. She was given [place]. French Bruno DPM /[id number] SSI File#: [id number] [facility] ANES POSTPROC EVALon 022 ANES POSTPROC EVAL HNO ID: [id number] Author: Wilberto Enciso DO Service: ? Author Type: Physician Type: Anesthesia Postprocedure Evaluation Filed: 10/28/2021 8:45 AM Note Text: POST ANESTHESIA EVALUATION NOTE : 1975 Procedure Summary Date: 10/28/21 Room / Location: MR OR 06 / MR OR Anesthesia Start: 740 Anesthesia Stop: 817 Procedure: PLANTAR FASCIECTOMY WITH TOPAZ AND ACELL INJECTION AND TENOLYSIS OF THE FLEXOR MUSCLES, LEFT FOOT (Left Foot) Diagnosis: Plantar fasciitis of left foot Left foot pain Surgeons: French Bruno DPM Responsible Provider: Wilberto Enciso DO Anesthesia Type: general ASA Status: 2 Anesthesia Type: general Airway Type: LMA Last Vitals Vitals Value Taken Time BP 133/72 10/28/21 0831 Temp 36.3 ?C (97.4 ?F) 10/28/21 0816 Pulse 45 10/28/21 0844 Resp 12 10/28/21 0816 SpO2 99 % 10/28/21 0844 Vitals shown include unvalidated device data. Post Anesthesia Patient Status Patient Evaluation: PACU. PACU/ICU Patient Condition: stable. Anticipated Disposition: phase 2 then home. Neurological Status: aware and responsive. Pulmonary Status: breathing comfortably on room air Airway Control: returned to baseline unsupported. Cardiovascular Status: stable. Pain Management: clinically adequate Postoperative Hydration: acceptable. Intraoperative Events: no significant anesthesia events Post Operative Nausea/Vomiting Status: no significant post operative nausea or vomiting Anesthetic Observations: Recommendation: continue current plan of care. Anesthesia Observations No Documentation SIGNATURE: Wilberto Enciso DO PATIENT NAME: Shanice Whipple DATE: October 28, 2021 TIME: 8:45 AM CSN: [id number] [facility] ANES PRE-OPon 10-28-2021 ANES PRE-OP HNO ID: [id number] Author: Wilberto Enciso DO Service: ? Author Type: Physician Type: Anesthesia Preprocedure Evaluation Filed: 10/28/2021 7:04 AM Note Text: ANESTHESIOLOGY DAY OF SURGERY NOTE : 1975 Procedure Information Date/Time: 10/28/21729 Procedure: PLANTAR FASCIECTOMY WITH TOPAZ AND ACELL INJECTION AND TENOLYSIS OF THE FLEXOR MUSCLES, LEFT FOOT (Left Foot) Location: MR OR 06 / MR OR Surgeons: French Bruno DPM Estimated body mass index is 24.35 kg/m? as calculated from the following: Height as of this encounter: 170.2 cm (5' 7). Weight as of this encounter: 70.5 kg (155 lb 8 oz). Most recent hematocrit and potassium results: Hematocrit 39.9 04/29/2019 Potassium 4.1 07/16/2021 Relevant Problems CARDIO (+) Migraine (+) Thrombophlebitis leg superficial (+) Varicose veins ENDO (+) Hypothyroidism NEURO-PSYCH (+) History of psychiatric care (+) Migraine PULMONARY (+) Mild intermittent asthma without complication I - PHYSICAL EVALUATION AIRWAY Patient intubated: No. Tracheostomy tube not present Mallampati: II. TM distance: >3 FB. Neck ROM: full ROM without neurological symptoms. Mouth opening: adequate. Short neck: no. Thick neck: no DENTAL Dental findings: teeth intact. II - ANESTHESIA PLAN ASA Score: 2 Anesthetic Plan: general Airway type: LMA NPO Status: adequate Monitoring plan: standard ASA. Anesthetic plan additional comments: Popliteal nerve block. Postoperative analgesic plan: parenteral or oral opioids. Informed Consent Anesthetic risks, benefits, alternatives, personnel and consent discussed: yes. Patient / Responsible Alliance Party agrees to proceed: yes Patient / Surrogate agrees to blood products: Yes Potential Anesthesia issues that may suggest increased risk of complications or contraindication to planned procedure: none. Vitals Value Taken Time BP 115/74 10/28/21 0618 Pulse 62 10/28/21 0655 Resp 20 10/28/21 0618 Temp 36.3 ?C (97.4 ?F) 10/28/21 0608 SpO2 98 % 10/28/21 0655 Vitals shown include unvalidated device data. Facility-Administered Medications as of 10/28/2021 Medication Dose Route Frequency - lidocaine 10 mg/mL (1 %) 1-2 mg injection (XYLOCAINE) 0.1-0.2 mL INTRADERMAL PRN - lactated ringers iv infusion 5-30 mL/hr INTRAVENOUS CONTINUOUS Outpatient Medications as of 10/28/2021 Medication Sig - gabapentin (NEURONTIN) 100 mg capsule Take 300 mg by mouth once daily. - SUMAtriptan (IMITREX) 25 mg tablet TAKE 1 PILL AT ONSET OF HEADACHE MAY REPEAT Q 2 HRS PRN - cyclobenzaprine (FLEXERIL) 10 mg tablet Take 1 tablet by mouth every 8 hours as needed for Muscle Spasm. - zafirlukast (ACCOLATE) 20 mg tablet Take 1 tablet by mouth twice daily. - albuterol HFA (PROAIR HFA) 90 mcg/actuation inhaler Inhale 2 Puffs as instructed every 4 hours as needed. - propranolol (INDERAL) 10 mg tablet TAKE 1 TABLET BY MOUTH TWICE DAILY GENERIC EQUIVALENT FOR INDERAL - Amphetamine-Dextroamphetamine (ADDERALL XR) 25 mg 24 hr capsule Take by mouth. Earliest Fill Date: 08/22/17 - lamoTRIgine (LAMICTAL) 200 mg tablet Take 1 tablet by mouth once daily. - levothyroxine (SYNTHROID) 150 mcg tablet Take 1 tablet by mouth once daily. (Patient taking differently: Take 100 mcg by mouth once daily. ) - fluticasone (FLONASE) 50 mcg/actuation nasal spray Use 1 Center in each nostril once daily. Use as directed. - omeprazole (PRILOSEC) 20 mg capsule Take 1 capsule by mouth once daily. - adapalene (DIFFERIN) 0.1 % gel Apply 1 application to affected area daily at bedtime. - sulfacetamide sodium-sulfur 10-4.5 % clsr Apply 1 application to affected area twice daily. - buPROPion XL (WELLBUTRIN XL) 300 mg 24 hr tablet Take 1 tablet by mouth once daily. - tobramycin-dexamethasone (TOBRADEX) ophthalmic solution Use 1 Drop in both eyes every 4 hours while awake. - aspirin, enteric coated (ECOTRIN LOW STRENGTH) 81 mg EC tablet Take 1 tablet by mouth once daily. - methylphenidate ER 18 mg CR tablet Take 1 tablet by mouth once daily. - cetirizine 10 mg ORAL tablet Take 1 tablet by mouth once daily. (Patient taking differently: Take 10 mg by mouth as needed. ) I have interviewed and examined the patient. I have reviewed the medical record and/or the pre-anesthesia evaluation, pertinent labs, and test results. This contains updated information obtained within 48 hours of Surgery/Procedure. SIGNATURE: Wilberto Enciso DO PATIENT NAME: Shanice Whipple DATE: October 28, 2021 TIME: 6:56 AM CSN: [id number] Normal [facility] HCG ( test) Ql (U)o n 10-28-2021 Specific gravity (U) [Rel density] 1.023 Normal 1.005-1.03 0 [facility] Comment on above: Order Comment: Specimen Type: URINE SPEC IMEN Ordering Facility: [facility] Address: [address] [place] [address] Performed By: #### 2 106-3 #### [facility] CLIA [id number] [address] [place] [address] [place] HCG Preg Ur Qlon 10-28-2021 HCG ( test) Ql (U) Negative Normal Negative [facility] Comment on above: Order Comment: Specimen Type: URINE SPEC IMEN Ordering Facility: [facility] Address: [address] [place] [address] Result Comment: This test is intended to aid in the early detection of . Very dilute urine samples, as indicated by a low specific gravity, may not contain help desk representative levels of hCG. This test detects intact hCG only. This test does not reliably detect hCG degradation products, including free-beta subunit and beta-core fragment. Therefore, this test may show reduced reactivity in urine after 8 weeks gestation. A number of conditions other than , including trophoblastic disease and certain non-trophoblastic neoplasms cause elevated levels of hCG. As with any assay employing mouse antibodies, the possibility exists for interference by human anti-mouse antibodies (HAMA) in the specimen. The test provides a presumptive diagnosis for . Performed By: #### 2 106-3 #### [facility] CLIA [id number] [facility] [address] [place] HISTORY PHYSICALon 2 HISTORY PHYSICAL HNO ID: [id number] Author: French Bruno DPM Service: Podiatry Author Type: Physician Type: HANDP Filed: 10/28/2021 7:29 AM Note Text: ORTHOPEDIC SERVICES HANDP SERVICE DATE: 10/28/2021 SERVICE TIME: 725 Subjective painful left heel chronic Pf and nerve pain HISTORY OF PRESENT ILLNESS: This is a 46 year old female, who presents today with a chief complaint of left foot pain. She complains of sharp pain about the anterior aspect of approximately 7 months duration. She complains that the pain is 7/10. She reports pain left heel. PAST MEDICAL HISTORY Diagnosis Date - ACL tear 05/28/2018 - Asthma seasonal triggers - Depressive disorder, not elsewhere classified - Migraine, intractable - Neuropathy - Other forms of migraine - Unspecified asthma(493.90) - Unspecified hypothyroidism PAST SURGICAL HISTORY Procedure Laterality Date - FASCIECTOMY PLANTAR FASCIA RADICAL SPX Left 05/2019 - LASIK - S BALLOON,UTERINE ABLATION 2007 - TARSAL TUNNEL RELEASE Left 07/2020 Current Facility-Administered Medications Medication Dose Route Frequency - lidocaine 10 mg/mL (1 %) 1-2 mg injection (XYLOCAINE) 0.1-0.2 mL INTRADERMAL PRN - lactated ringers iv infusion 5-30 mL/hr INTRAVENOUS CONTINUOUS - midazolam (PF) 2 mg injection (VERSED) 2 mg INTRAVENOUS Pre-Op Once - ceFAZolin iv piggyback 2 g in D5W (iso-osmotic) 100 mL (ANCEF) 2 g INTRAVENOUS ONCE - NaCl 0.9% iv flush bag 20 mL INTRAVENOUS PRN ALLERGIES Allergen Reactions - Doxycycline nausea,vomiting FAMILY HISTORY Problem Relation Age of Onset - Diabetes Father - Hypertension Father - Lipids Father - Hypertension Mother - Lipids Mother - Coronary Artery Disease Paternal Grandfather - Coronary Artery Disease Paternal Grandmother Social History Tobacco Use - Smoking status: Current Every Day Smoker Packs/day: 0.50 Years: 18.00 Pack years: 9.00 Types: Cigarettes Last attempt to quit: 11/01/2012 Years since quittin.9 - Smokeless tobacco: Never Used - Tobacco comment: pt's vapes Substance Use Topics - Alcohol use: Yes Comment: occ - Drug use: No Hand Dominance: right handed Occupation: Ambulatory Status: community ambulator without assistance Living Conditions: lives with spouse REVIEW OF SYSTEMS: GENERAL: Negative for malaise, significant weight loss, night sweats and fever HEENT: No changes in hearing or vision. No sinus pain or pressure, No trouble swallowing RESPIRATORY: Negative for cough, wheezing and shortness of breath CARDIOVASCULAR: Negative for chest pain, leg swelling, palpitations, orthopnea GI:Negative for abdominal discomfort, hematochezia, melena, hematemesis, change in bowel habits, diarrhea, constipation, nausea or vomiting. MUSCULOSKELETAL: See HPI PSYCH: Negative for sleep disturbance, mood disorder and recent psychosocial stressors. HEMATOLOGY Negative for prolonged bleeding, bruising easily, and swollen nodes. ENDOCRINE: Negative for cold or heat intolerance, polyuria, polydipsia and goiter. NEURO: Negative for lightheadedness, dizziness, tremor, gait imbalance, syncope and seizures. Objective PHYSICAL EXAM: Pleasant, comfortable, not in acute distress. Awake, alert, oriented times 4. SKIN: No evidence of erythema, warmth, bruising, abrasions, scars, deformity, or lacerations. NECK: Supple, no JVD, no carotid bruit, no thyromegaly. LUNGS: Clear to auscultation bilaterally. CARDIAC: RRR, S1 and S2, no S3 or S4, no additional heart sounds or murmurs. ABDOMEN: Soft, nontender, bowel sounds present. EXTREMITIES: No edema. PULSES: Peripheral pulses present. The remainder of the physical exam is noncontributory. BP 115/74 Pulse (!) 57 Temp 36.3 ?C (97.4 ?F) (Temporal) Resp 20 Ht 170.2 cm (5' 7) Wt 70.5 kg (155 lb 8 oz) LMP 10/17/2021 SpO2 97% BMI 24.35 kg/m? PROCEDURE: Plantar fasciectomy left heel RADIOGRAPHS: left OTHER STUDIES: Not applicable. DATA: Diagnostic tests reviewed for today's visit: Most recent labs Assessment/Plan Active Problems:plantar fasciitis and nerve pain left heel History of psychiatric care POA: Unknown Assessment AND Plan: plan for surgery of the left heel Resolved Problems: * No resolved hospital problems. * Medication and Non-Pharmacologic VTE Prophylaxis/Anticoagulants VTE Prophylaxis: VTE prophylaxis appropriate SIGNATURE: French Bruno DPM PATIENT NAME: Shanice Whipple DATE: October 28, 2021 TIME: 7:26 AM [facility] ANES PREOPon 10-27-2021 ANES PREOP HNO ID: [id number] Author: Jillian Morin APRN.CNP Service: Anesthesiology Author Type: Nurse Practitioner Type: Anesthesia PreOp Filed: 10/27/2021 1:33 PM Note Text: Summary: preanesthesia note 46yo female, 1/2ppd smoker, vapes. Had LLE sx with Chokan 07/2020. PMH: asthma, migraines, depression, ADHD (2 meds), hypothyroid. PFTs 2011 FVC 3/38, FEV1 2.75, ratio 73. [facility] NURSING PROGon 10-27-2021 NURSING PROG HNO ID: [id number] Author: Pia Alex RN Service: Nursing Author Type: Registered Nurse Type: Nursing Progress Note Filed: 10/27/2021 12:53 PM Note Text: PRE-PROCEDURE INSTRUCTIONS TO PREPARE FOR YOUR PROCEDURE: - Your arrival time for your procedure is 0545. - Do NOT eat any solid foods after MIDNIGHT the night prior to your procedure - this includes gum or mints. - You can drink clear liquids* up until 0345, which is 2 hours before your arrival time. *Clear liquids = water, carbohydrate drink (sports drink that is clear or yellow in color), Ensure Pre-Surgery (given by GOKUL or your DrEliane), fruit juice without pulp (apple/cranberry), clear tea, black coffee (no cream). NO ALCOHOL. - Shower the morning of the procedure, put on clean clothes, and have clean sheets for your bed to help prevent infection after your procedure. - Leave all valuables such as jewelry including rings, piercings, wallets, and purses at home. - Wear comfortable, loose-fitting clothing. - If you wear glasses or contacts, please bring a case. SPECIAL INSTRUCTIONS: - If instructed, bring your first voided urine specimen with you. - If you were provided skin preparation to use prior to your procedure, complete this as directed. - If you were provided Ensure Pre-Surgery drink, you need to drink this at NA. This should be consumed quickly (in less than 5 minutes, rather than sipped over time) - If you use crutches or a walker, bring them with you. - If you have a home CPAP/BIPAP machine, bring it with you. - If you were instructed to complete a fleets enema or bowel prep, complete as directed. - Bring copy of Living Will/Power of Program Arranger. - Do not smoke or chew. If you use tobacco, quit or at least cut down before surgery. Do not smoke or chew after midnight the day before your surgery. This effects bleeding, infection, healing, and so much more. - Do not take any Diet or Herbal Supplements 2 weeks prior to your surgery date. - Please notify your physician if there is any change in your physical condition such as a cold, cough, fever, sore throat, or skin irritation near the surgical site. - Visitors under the age of 14 are restricted in the Surgery Center. UPON ARRIVAL: - Access to [facility] ([facility]) is located on [address] - [employer] parking is available for your convenience from 5am-5pm- there is a $5.00 charge for this service. - Take the elevators directly inside the entrance to the 1st Floor Surgery Lobby. - Sign in at the podium located to the left when you get off the elevators. - A payment may be expected at the time of service. - One visitor may come back to the preoperative area with you. The preoperative staff will be reviewing your medical history, please let them know if you prefer not to have a visitor with you during this time. Once you are ready for surgery, two visitors at a time are permitted in your preoperative room. CHIVO PORRAS [facility] 07-16-2020 [facility] DATE OF SERVICE: 12/2020 PREOPERATIVE DIAGNOSES: 1. Tarsal tunnel syndrome, left ankle. 2. Nerve entrapment, left plantar heel. 3. Plantar fasciitis, chronic. 4. Tenosynovitis of the posterior tibial tendon. POSTOPERATIVE DIAGNOSES: 1. Tarsal tunnel syndrome, left ankle. 2. Nerve entrapment, left plantar heel. 3. Plantar fasciitis, chronic. 4. Tenosynovitis of the posterior tibial tendon. OPERATION: 1. Tarsal tunnel release with extensive neurolysis of the calcaneal branch that is extending into the heel. 2. Tenolysis of the posterior tibial tendon using ACell graft application which was a 5 x 5 sheet, 2-layer inserted around the posterior tibial tendon. 3. Plantar fasciectomy with Glorieta system. 4. Injection of ACell powder into a liquid injecting into the plantar fascia area. SURGEON: French Bruno DPM [facility] PATIENT NAME: SHANICE WHIPPLE [address] [facility] Dr. Salazar MEDICAL REC #: [id number] [place] [address] ADMIT DATE: DISCHARGE DATE: OPERATIVE REPORT ATTENDING PHY: French Bruno DPM MATH AND PHYSICS INSTRUCTOR: Sherly Lopez, PGY3 ANESTHESIA: MAC with local sedation of 30 mL of 0.25% Marcaine plain preoperatively and intraoperatively total. HEMOSTASIS: Maintained by pneumatic tourniquet above the left calf for 45 minutes total work time. ESTIMATED BLOOD LOSS: Minimal. MATERIALS: ACell graft 5 x 5, 500 mL powder, 4-0 Vicryl, 4-0 nylon. COMPLICATIONS: None. BRIEF INDICATION FOR PROCEDURE: This patient is a well-known patient of mine at the [facility] with a complaint of having chronic plantar fasciitis, nerve pain, tarsal tunnel syndrome. She had surgery approximately almost 2 years ago by another physician who did an endoscopic plantar fasciectomy. It appears the physician cut the entire plantar fascia. She has now had no relief of her plantar fascia since this time, but now has extending nerve pain up into her ankle and extending up into her leg. She has had chronic lower extremity pain, numbness, [facility] PATIENT NAME: SHANICE WHIPPLE [address] [facility] [address] Salazar MEDICAL REC #: [id number] [place] [address] ADMIT DATE: DISCHARGE DATE: OPERATIVE REPORT ATTENDING PHY: French Bruno DPChelsey tingling in the bottom of the foot. EMG/NCV study revealed radiculopathy plus tarsal tunnel syndrome and abductor hallucis muscle belly chronic hypertrophy. At this point we recommend surgical intervention since we tried conservative methods consisting of nerve blocks, orthotics, bracing, physical therapy, recommend surgical intervention at this time. She understands all risks, complications and benefits of the surgical procedure and consisting of pain, numbness, bleeding, chance for revisional surgery, chance for infection. She understands. She would like to proceed. PROCEDURE: Patient was seen in the preoperative holding area, chart reviewed, and consent was signed. Patient was then taken back to the operating room and placed on the operating room table in normal supine position. IV MAC sedation was then achieved and a local consisting of 0.25% Marcaine plain was injected about the left ankle and the left heel. The entire lower extremity was then scrubbed, prepped and draped in the usual aseptic technique. Tourniquet was placed about the left calf, but not yet inflated. Time-out was then performed. Attention was then directed to the left [facility] PATIENT NAME: SHANICE WHIPPLE [address] [place] [address] Dr. Salazar MEDICAL REC #: [id number] [place] [id number] ADMIT DATE: DISCHARGE DATE: OPERATIVE REPORT ATTENDING PHY: French Bruno DPChelsey medial aspect of the ankle and approximately 6 to 7 cm curvilinear incision from behind the medial malleolus extending down into the abductor hallucis muscle belly and the simi pedis. The incision was deepened directly down through subcutaneous tissue with care being taken to identify and retract all vital and neurovascular structures. All bleeders were cauterized and ligated as necessary. At this point it was carried down to the level down to the flexor retinaculum. The retinaculum was noted to be tight around the neurovascular bundle. The posterior tibial nerve appeared to be moderately hypertrophied as well. At this point the flexor retinaculum was then carefully dissected and then cut. The posterior tibial nerve was then visualized. At the same time the nerve was hypertrophic. It was able to be stimulated. There was good stimulation that the nerve was still active. At the same time then dissection was carried down deeper into the reti (more content not included)... Normal [facility] URINE PREGNANCYon 07-16-2020 Beta HCG ( test) Ql (U) Negative Normal NEGATIVE [facility] Comment on above: Order Comment: [place]: Performed By: #### L [id number] #### [facility] [address] [phone] UR SPEC GRAV 1.020 Normal 1.005-1.03 0 [facility] Comment on above: Order Comment: [place]: Performed By: #### L [id number] #### [facility] [address] [place] [address] # [phone] HISTORY AND PHYSICALon 06-15 HISTORY AND PHYSICAL [facility] HISTORY & PHYSICAL NAME ACCOUNT SEX AGE ADMIT DISCHARGE PT MED. RECORD# NUMBER DATE DATE TYPE SANTIAGO [id number] F 44 06/05/19 2 SHANICE [id number] ROOM: DATE OF : 71 DICTATING PHYSICIAN: Hanane Cuellar CHIEF COMPLAINT: 1. Chronic plantar fasciitis left foot with mid-substance tears. 2. Pes cavus. PLANNED PROCEDURE: Endoscopic plantar fasciotomy, left foot. SURGEON: Hanane Cuellar DPM HISTORY OF PRESENT ILLNESS: The patient is known to me from my private office where she had been treated for over a year for a chronic plantar fasciitis. Conservative methods have failed which included immobilization, cortisone injections, stretching, change of shoes, ice, antiinflammatories, oral prednisone, orthotics, and splinting. The patient stated due to exhausting of conservative methods, she wished to undergo surgical intervention. ALLERGIES: No known drug allergies. IMPRESSION/PLAN: Risks, complications, benefits, and alternative treatments were discussed in detail. No guarantees were given. We discussed the possibility of continued pain following surgery. The patient states she understands. Consent was reviewed and signed. The patient understands she will be required to rest for several weeks postoperatively to reduced the risk of chronic pain. She will present to [facility] on the morning of June 06, 2019 for outpatient surgical intervention. Dictated By: Hanane Cuellar DPM 06/05/19 07:30 JOB #: [id number] Transcribed By: am 06/05/19 13:09 Electronically signed by: E-SIGN HANANE CUELLAR 06/16/19 17:09 Update to H&P: [ ] No changes: I have examined the patient and reviewed the H&P and there are no changes. Page 1 of 2 SHANICE WHIPPLE History & Physical SANTIAGO, TRACY :1975 [ ] As previously dictated with the following changes: PHYSICIAN SIGNATURE: TIME: DATE: Page 2 of 2 SHANICE WHIPPLE History & Physical Normal [facility] OPERATIVE PROCEDURESon 06-15 OPERATIVE PROCEDURES [facility] OPERATIVE REPORT NAME ACCOUNT SEX AGE ADMIT DISCHARGE PT MED. RECORD# NUMBER DATE DATE TYPE SANTIAGO [id number] F 44 06/06/19 06/06/19 2 SHANICE [id number] ROOM: [facility] DATE OF : 1975 DICTATING PHYSICIAN: Hanane Cuellar DATE OF SURGERY: June 06, 2019 SURGEON: Hanane Cuellar DPM MATH AND PHYSICS INSTRUCTOR: None. ANESTHESIOLOGIST: Alberto Kemp CRNA ANESTHETIC: MAC with local 10 mL of 1% lidocaine plain to the left foot and anesthesia administered popliteal block left leg. PREOPERATIVE DIAGNOSIS: Chronic painful plantar fasciitis, left foot. POSTOPERATIVE DIAGNOSIS: Chronic painful plantar fasciitis, left foot. OPERATION PERFORMED: Endoscopic plantar fasciotomy, left foot. COMPLICATIONS: None. ESTIMATED BLOOD LOSS: Minimal. HEMOSTASIS: Pneumatic ankle tourniquet set at 250 mmHg. DESCRIPTION OF OPERATION: Under mild sedation, the patient was brought into the OR and placed on the operating table in the supine position. Pneumatic ankle tourniquet was placed about the patient's left ankle. Popliteal block had been performed previously. Following IV sedation, local anesthesia was obtained about the patient's left ankle utilizing a total of 10 mL of 1% lidocaine plain. The foot was scrubbed, prepped and draped in the usual aseptic manner. The left lower extremity was then elevated to exsanguinate the limb and pneumatic ankle tourniquet was inflated to 250 mmHg. Attention was then directed to the medial and lateral aspects of the plantar heel at the origin of the plantar fascia. Approximately 1.5 cm linear longitudinal incision was made medially and laterally. Next, utilizing the Yingying Licai endoscopic plantar fasciotomy system, the spatula was placed the medial to lateral transversely entering into the medial incision and exiting out through the lateral incision to separate the plantar fascia from Page 1 of 2 SHANICE WHIPPLE Operative Report SHANICE WHIPPLE : 1975 the plantar fat pad. That was then removed, and next was placed the obturator/cannula. The obturator was removed. The cannula allowed introduction laterally of the scope used at a 30 degree bevel. 4.0 mm probe was then utilized to evaluate the entire plantar fascia, and it was noted to be extremely thickened with some small tears along the entire central aspect of the plantar fascia. This was confirmed preoperatively with MRI. Next, utilizing the hook blade, the entire plantar fascia was released from lateral to medially. This was confirmed as well with the probe. The flexor digitorum brevis muscle belly was visualized. Pictures were taken throughout the procedure. At this point, the wound was flushed with copious amounts of normal sterile saline. The wound was probed once again to ensure all fibers were cut. This was discussed with the patient preoperatively due to her pes cavus foot type, as well as severe pain and the amount of thickening and tears throughout the entire central band of the plantar fascia. It was felt performing an entire plantar fasciotomy would be more appropriate and give the best possibility for outcome of pain free for ambulation. The cannula was then removed and medial and lateral incisions were reapproximated and coapted utilizing 3-0 Prolene sutures. Upon completion of procedure, a sterile compressive dressing consisting of Xeroform, 4x4's, and Kerlix was applied. ABD was also applied for comfort. Pneumatic ankle tourniquet was deflated and a prompt hyperemic response was noted to all digits of the left foot. The tourniquet time was 19 minutes. Lenard wrap was then applied. The patient tolerated the procedure and anesthesia well. She was transferred to the recovery room with vital signs stable and vascular status intact all toes of the left foot. Following a period of postoperative monitoring, she will be discharged with written and oral postoperative instructions. She is to keep the dressing clean, dry, and intact, avoid excessive ambulation, and remaining strict nonweightbearing to the left foot. Contact Dr. Cuellar for all postoperative follow up care, and if any problems arise postoperative prescription was written for Jason, and she should take as directed. Dictated By: Hanane Cuellar DPM 06/06/19 08:18 JOB #: [id number] Transcribed By: am 06/06/19 12:09 Electronically signed by: E-SIGN HANANE CUELLAR 06/16/19 17:11 Page 2 of 2 SHANICE WHIPPLE Operative Report Normal [facility] URINEon 06-06-2019 Beta HCG ( test) Ql (U) Negative Normal NEGATIVE [facility] Comment on above: Performed By: #### [id number] #### [place] [address] EXTERNAL QC DONE? YES Normal [facility] Comment on above: Performed By: #### [id number] #### [facility],[address] [place] [address] INTERNAL QC PASS Normal [facility] Comment on above: Performed By: #### [id number] #### [place] [address] BUNon 05-28-2019 Urea nitrogen [Mass/Vol] 14 mg/dL Normal 6 - 20 [facility] Comment on above: Performed By: #### [id number] #### [place] [address] GLUCOSEon 05-28-2019 Glucose [Mass/Vol] 72 mg/dL Low 74 - 106 [facility] Comment on above: Performed By: #### [id number] #### [facility],[address] [place] [address] HEMATOCRITon 05-28-2019 Hematocrit (Bld) [Volume fraction] 41.4 % Normal 34.0 - 46.0 [facility] Comment on above: Performed By: #### [id number] #### [facility],[address] [place] [address] HEMOGLOBINon 05-28-2019 Hemoglobin (Bld) [Mass/Vol] 14.0 g/dL Normal 12.0 - 16.0 [facility] Comment on above: Performed By: #### [id number] #### [facility],[address] [place] [address] ALLIED HEALTHon 04-29-2019 ALLIED HEALTH HNO ID: [id number] Author: LUDIVINA Kwok (Ct) Service: ? Author Type: Clinical Attendant Coin Operated Laundry Type: Allied Health Filed: 04/29/2019 3:35 PM Note Text: Radiology Service Progress Note PATIENT NAME: Shanice Whipple DATE OF SERVICE: April 29, 2019 TIME: 3:35 PM PATIENT IDENTITY VERIFICATION COMPLETED USING TWO (2) IDENTIFIERS: Name and Date of confirmed by patient verbally. PATIENT GENDER DATA: Female. status: : No status: NO. PATIENT RELEVANT IMPLANT DATA REVIEWED: Not Applicable RADIOLOGY DEPARTMENT: General X-ray: Exam(s) Completed: Chest X-Ray PERIPHERAL IV DATA: Not applicable SIGNED BY: LUDIVINA Kwok April 29, 2019 3:35 PM Normal [facility] Beta HCG Quant, EDon 020 Beta HCG Quant, ED <0.6 Normal <5.[address] [facility] Comment on above: Result Comment: QUANTITATIVE HCG NORMAL RANGES Weeks of Gestation (Weeks Since LMP) 3 Weeks (5.8-71.2 mIU/mL) 4 Weeks (9.5-750 mIU/mL) 5 Weeks (217-7138 mIU/mL) 6 Weeks (158-20296 mIU/mL) 7 Weeks (3697-758989 mIU/mL) 8 Weeks (70851-012694 mIU/mL) 9 Weeks (54314-975322 mIU/mL) 10 Weeks (72907-695430 mIU/mL) 12 Weeks (19974-790424 mIU/mL) Referenced to 4th IS of [facility] Performed By: #### C BC, CMP, MG1, HCGED #### [facility] [address] [place], [place] [id number] CBCon 04-29-2019 Erythrocyte distribution width (RBC) [Ratio] 12.8 % Normal 11.5-15.[address] [facility] Comment on above: Performed By: #### CBC, CMP, MG1, HCGED #### [facility] [address] [place], [place] [address] Hematocrit (Bld) [Volume fraction] 39.9 % Normal 36.0-46.[address] [facility] Comment on above: Performed By: #### CBC, CMP, MG1, HCGED #### [facility] [address] [place], [place] [address] Hemoglobin (Bld) [Mass/Vol] 13.4 g/dL Normal 11.5-15.[address] [facility] Comment on above: Performed By: #### CBC, CMP, MG1, HCGED #### [facility] [address] [place], [place] [phone] MCH (RBC) [Entitic mass] 29.1 pG Normal 26.0-34.[address] [facility] Comment on above: Performed By: #### CBC, CMP, MG1, HCGED #### [facility] [address] [place], [place] [address] MCHC (RBC) [Mass/Vol] 33.6 g/dL Normal 30.5-36.[address] [facility] Comment on above: Performed By: #### CBC, CMP, MG1, HCGED #### [facility] [address] [place], [place] [address] MCV (RBC) [Entitic vol] 86.7 fL Normal 80.0-100.[address] [facility] Comment on above: Performed By: #### CBC, CMP, MG1, HCGED #### [facility] [address] [place] [address] Platelet mean volume (Bld) [Entitic vol] 10.3 fL Normal 9.0-12.[address] [facility] Comment on above: Performed By: #### CBC, CMP, MG1, HCGED #### [facility] [address] [place] [address] Platelets (Bld) [#/Vol] 359 10*3/uL Normal 150-[address] [facility] Comment on above: Performed By: #### CBC, CMP, MG1, HCGED #### [facility] [address] [place] [address] RBC (Bld) [#/Vol] 4.60 10*6/uL Normal 3.90-5.[address] [facility] Comment on above: Performed By: #### CBC, CMP, MG1, HCGED #### [facility] [address] [place] [address] WBC (Bld) [#/Vol] 11.10 10*3/uL High 3.70-11.[address] [facility] Comment on above: Performed By: #### CBC, CMP, MG1, HCGED #### [facility] [address] [place] [address] Comp Metabolic Panelon 04-29 Albumin [Mass/Vol] 4.5 g/dL Normal 3.9-4.[address] [facility] Comment on above: Performed By: #### CBC, CMP, MG1, HCGED #### [facility] [address] [place] [address] ALP [Catalytic activity/Vol] 43 U/L Normal 34-[address] [facility] Comment on above: Performed By: #### CBC, CMP, MG1, HCGED #### [facility] [address] [place], [place] [phone] ALT [Catalytic activity/Vol] 17 U/L Normal 7-[address] [facility] Comment on above: Performed By: #### CBC, CMP, MG1, HCGED #### [facility] [address] [place], [place] [phone] Anion gap [Moles/Vol] 14 mmol/L Normal 9-[address] [facility] Comment on above: Performed By: #### CBC, CMP, MG1, HCGED #### [facility] [address] [place] [phone] AST [Catalytic activity/Vol] 22 U/L Normal 13-[address] [facility] Comment on above: Performed By: #### CBC, CMP, MG1, HCGED #### [facility] [address] [place], [place] [address] Bilirubin [Mass/Vol] 0.4 mg/dL Normal 0.2-1.[address] [facility] Comment on above: Performed By: #### CBC, CMP, MG1, HCGED #### [facility] [address] [place], [place] [address] Calcium [Mass/Vol] 9.7 mg/dL Normal 8.5-10.[address] [facility] Comment on above: Performed By: #### CBC, CMP, MG1, HCGED #### [facility] [address] [place], [place] [phone] Chloride [Moles/Vol] 102 mmol/L Normal 97-[address] [facility] Comment on above: Performed By: #### CBC, CMP, MG1, HCGED #### [facility] [address] [place], [place] [address] CO2 [Moles/Vol] 24 mmol/L Normal 22-[address] [facility] Comment on above: Performed By: #### CBC, CMP, MG1, HCGED #### [facility] [address] [place], [place] [phone] Creatinine [Mass/Vol] 0.77 mg/dL Normal 0.58-0.[address] [facility] Comment on above: Performed By: #### CBC, CMP, MG1, HCGED #### [facility] [address] [place], [place] [phone] eGFR- Amer. >[address] [facility] Comment on above: Performed By: #### CBC, CMP, MG1, HCGED #### [facility] [address] [place], [place] [phone] GFR/1.73 sq M predicted among non-blacks MDRD (S/P/Bld) [Vol rate/Area] mL/min/{1.73_m2} Normal [facility] Comment on above: Result Comment: eGFR (Estimated GFR) Uni ts of measure: mL/min/1.73 meters squared eGFR is derived from the reexpressed MDRD Study equation using the following parameters: serum creatinine, age, gender and race. The creatinine assay has been calibrated to be traceable to IDVT. An eGFR <60 mL/min/1.73m2 for >3 months is consistent with chronic kidney disease. Refer to KDOQI guidelines for clinical interpretation. In patients with unstable renal function, e.g. those with acute kidney injury, the eGFR may not accurately reflect actual GFR. Performed By: #### C BC, CMP, MG1, HCGED #### [facility] [address] [place] [address] Glucose [Mass/Vol] 89 mg/dL Normal 74-[address] [facility] Comment on above: Result Comment: The [place] Diabetes As sociation (ADA) provides guidance for cutoff values for fasting glucose and random glucose. The ADA defines fasting as no caloric intake for at least 8 hours. Fasting plasma glucose results between 100 to 125 mg/dL indicate increased risk for diabetes (prediabetes). Fasting plasma glucose results greater than or equal to 126 mg/dL meet the criteria for diagnosis of diabetes. In the absence of unequivocal hyperglycemia, results should be confirmed by repeat testing. In a patient with classic symptoms of hyperglycemia or hyperglycemic crisis, random plasma glucose results greater than or equal to 200 mg/dL meet the criteria for diagnosis of diabetes. Reference: Standards of Medical Care in Diabetes 2016, [place] [employer]. Diabetes Care. 2016.39(Suppl 1). Performed By: #### C BC, CMP, MG1, HCGED #### [facility] [address] [place] [address] Potassium [Moles/Vol] 4.0 mmol/L Normal 3.7-5.[address] [facility] Comment on above: Performed By: #### CBC, CMP, MG1, HCGED #### [facility] [address] [place] [address] Protein [Mass/Vol] 7.2 g/dL Normal 6.3-8.[address] [facility] Comment on above: Performed By: #### CBC, CMP, MG1, HCGED #### [facility] [address] [place] [address] Sodium [Moles/Vol] 140 mmol/L Normal 136-[address] [facility] Comment on above: Performed By: #### CBC, CMP, MG1, HCGED #### [facility] [address] [facility] [phone] Urea nitrogen [Mass/Vol] 12 mg/dL Normal 10-[address] [facility] Comment on above: Performed By: #### CBC, CMP, MG1, HCGED #### [facility] [address] [facility] [phone] ECG COMPLETEon 04-29-2019 ECG COMPLETE NAME : Rosy WHIPPLE PID : [id number] : 1975 Gender : Female Race : ORD : [id number] Procedure Date : Apr 29 2019 15:18:35 Edit Date : Apr 30 2019 09:15:22 Diagnosis:NORMAL SINUS RHYTHM SEPTAL INFARCT , AGE UNDETERMINED ABNORMAL ECG NSR no STEMI 1518 Confirmed by MD SRIRAM, ALEXIS ([id number]), newspaper editor SEVEN GARIBAY ([id number]) on 04/30/2019 9:15:21 AM Ventricular Rate : 76 BPM Atrial Rate : 76 BPM P-R Interval : 190 ms QRS Duration : 76 ms Q-T Interval : 398 ms QTC Calculation(Bazett) : 447 ms P Dalton : 78 degrees R Dalton : 88 degrees T Dalton : 60 degrees Test Reason : Chest Pain Location : 1 : ER 13 Overread By : MD BHATIA BENJAMIN Edited By : SEVEN GARIBAY Referred By : System,System Acquired by : System,System [facility] ED NOTEon 04-29-2019 ED NOTE HNO ID: [id number] Author: Michele Rush RN Service: Nursing Author Type: Registered Nurse Type: ED Notes Filed: 04/29/2019 6:05 PM Note Text: Pt educated on d/c medication and follow up instructions. Disc of radiology imaging provided per patient request. Pt endorsing improved chest pain upon d/c. Work note provided. VSS. [facility] ED NOTE HNO ID: [id number] Author: Michele ChristiansonRn) VERN Rush Service: Nursing Author Type: Registered Nurse Type: ED Notes Filed: 04/29/2019 3:26 PM Note Text: Patient transported to [facility] with Tech. [facility] ED NOTE HNO ID: [id number] Author: Michele Rush RN Service: Nursing Author Type: Registered Nurse Type: ED Notes Filed: 04/29/2019 3:09 PM Note Text: Dr. Bhatia at bedside at this time. [facility] ED NOTE HNO ID: [id number] Author: Amanda (Rn) VERN Patel Service: ? Author Type: Registered Nurse Type: ED Notes Filed: 04/29/2019 2:56 PM Note Text: Pt presents to ED with chest pain. Pt states she had an episode last night of sharp chest pain but it did not last long. Today she has been feeling chest pressure. Also reports needing to use her inhaler more today. [facility] ED PROV NOTEon 04-29-2019 ED PROV NOTE HNO ID: [id number] Author: Alexis Bhatia DO Service: Emergency Medicine Author Type: Physician Type: ED Provider Notes Filed: 04/29/2019 5:49 PM Note Text: ED Provider Note Patient Name: Shanice Whipple SERVICE DATE: 04/29/19 History Patient presents with: Chest Pain 43-year-old female presents for evaluation of chest pain. Patient states she developed sharp sudden onset chest pain last night. Lasted seconds, then resolved. Today, patient has had constant chest pressure since waking up this morning. Complaining of 3/10 in severity constant substernal chest pain described as pressure. The pain does not radiate. The pain waxes and wanes in severity. Nothing in particular makes the pain better or worse. No shortness of breath or lightheadedness. No cough. States she's been using her inhaler more than usual lately. No history of DVT or PE. No recent travel, surgery, or prolonged immobilization. No exogenous estrogen or history of cancer. History provided by: Patient and medical records Chest Pain Pain location: Substernal area Pain quality: pressure and sharp Pain radiates to: Does not radiate Pain severity: Mild (3/10) Onset quality: Sudden Duration: 1 day Timing: Constant Progression: Waxing and waning Chronicity: New Relieved by: Nothing Worsened by: Nothing Ineffective treatments: None tried Associated symptoms: no abdominal pain, no back pain, no cough, no diaphoresis, no dizziness, no fever, no headache, no nausea, no near-syncope, no numbness, no shortness of breath, no syncope, no vomiting and no weakness Risk factors: smoking Risk factors: no prior DVT/PE PAST MEDICAL HISTORY Diagnosis Date - ACL tear 05/28/2018 - Depressive disorder, not elsewhere classified - Other forms of migraine - Unspecified asthma(493.90) - Unspecified hypothyroidism PAST SURGICAL HISTORY Procedure Laterality Date - LASIK - S BALLOON,UTERINE ABLATION 2007 FAMILY HISTORY Problem Relation Age of Onset - Diabetes Father - Hypertension Father - Lipids Father - Hypertension Mother - Lipids Mother - Coronary Artery Disease Paternal Grandfather - Coronary Artery Disease Paternal Grandmother Social History Tobacco Use - Smoking status: Current Every Day Smoker Packs/day: 0.50 Years: 18.00 Pack years: 9.00 Types: Cigarettes Last attempt to quit: 11/01/2012 Years since quittin.4 - Smokeless tobacco: Never Used - Tobacco comment: patient told to quit 08/28/03 quit jan 2006 Substance and Sexual Activity - Alcohol use: Yes Comment: occ - Drug use: No - Sexual activity: Yes Partners: Male control/protection: Surgical Comment: ablation ALLERGIES Allergen Reactions - Doxycycline nausea,vomiting Review of Systems Constitutional: Negative for activity change, chills, diaphoresis and fever. HENT: Negative for dental problem, ear pain and sore throat. Eyes: Negative for photophobia, pain and visual disturbance. Respiratory: Negative for cough, chest tightness, shortness of breath and wheezing. Cardiovascular: Positive for chest pain. Negative for syncope and near-syncope. Gastrointestinal: Negative for abdominal pain, diarrhea, nausea and vomiting. Genitourinary: Negative for difficulty urinating, dysuria, flank pain, frequency and urgency. Musculoskeletal: Negative for arthralgias, back pain, myalgias, neck pain and neck stiffness. Skin: Negative for color change and rash. Neurological: Negative for dizziness, seizures, syncope, weakness, light-headedness, numbness and headaches. Hematological: Negative for adenopathy. Psychiatric/Behavioral: Negative for agitation, behavioral problems, confusion and suicidal ideas. The patient is not nervous/anxious. All other systems reviewed and are negative. Physical Exam BP 131/81 Pulse 81 Temp (Src) 98.6 (Temporal) Resp 18 Ht 5' 7 (1.70m) Wt 156 lb 1.6 oz (70.8kg) SpO2 96% LMP 04/18/2019 BMI 24.44 kg/(m2). O2 Therapy: Room Air Physical Exam Vitals signs and nursing note reviewed. Constitutional: General: She is not in acute distress. Appearance: She is well-developed. HENT: Head: Normocephalic and atraumatic. Right Ear: External ear normal. Left Ear: External ear normal. Eyes: General: No scleral icterus. Right eye: No discharge. Left eye: No discharge. Conjunctiva/sclera: Conjunctivae normal. Pupils: Pupils are equal, round, and reactive to light. Neck: Musculoskeletal: Normal range of motion and neck supple. Trachea: No tracheal deviation. Cardiovascular: Rate and Rhythm: Normal rate and regular rhythm. Heart sounds: Normal heart sounds. No murmur. Pulmonary: Effort: Pulmonary effort is normal. No respiratory distress. Breath sounds: Normal breath sounds. Abdominal: General: Bowel sounds are normal. There is no distension. Palpations: Abdomen is soft. There is no mass. Tenderness: There is no abdominal tenderness. There is no guarding or rebound. Musculoskeletal: Normal range of motion. General: No tenderness. Skin: General: Skin is warm and dry. Findings: No rash. Neurological: Mental Status: She is alert and oriented to person, place, and time. GCS: GCS eye subscore is 4. GCS verbal subscore is 5. GCS motor subscore is 6. Cranial Nerves: No cranial nerve deficit. Sensory: No sensory deficit. Coordination: Coordination normal. Comments: Normal speech. No facial droop or asymmetry. Equal event sales manager. Moves all extremities with purpose. No focal motor or sensory deficits. No focal neurological deficits. Psychiatric: Behavior: Behavior normal. DECISION SUPPORT - ED (all recorded) Pulmonary Embolism Row Name 04/29/19 1536 PERC Is pretest probability for PE > than 15% 0 Age > 50 0 HR >= 100 0 spO2 on room air < 95% 0 History of prior PE or DVT 0 Recent Trauma or Surgery 0 Hemoptysis? 0 Exogenous Estrogen? 0 Unilateral leg swelling 0 PERC Score = 0 If PERC Score > 0 - The PERC rule is not satisfied and cannot be used to rule out Pulmonary Embolism for this patient No need for further workup, as < 2% chance of PE Wells' Clinical signs and symptoms of DVT ? PE is #1 Diagnosis, or equally likely ? Heart Rate is > 100 ? Immobilization at least 3 days or surgery in the previous 4 weeks ? Previous objectively diagnosed PE or DVT ? Hemoptysis ? Malignancy with treatment within 6 months or palliative ? Wells' Score = ? Diagnostic Testing ED Labs Ordered and Reviewed CBC - Abnormal; Notable for the following components: Result Value Ref Range WBC 11.10 (*) 3.70 - 11.00 k/uL All other components within normal limits COMP METABOLIC PANEL MAGNESIUM BLD HIGH SENSITIVITY TROPONIN T HIGH SENSITIVITY TROPONIN T BETA HCG, QUANTITATIVE FOR ED Procedures ED Course / Clinical Impression ED Course as of Apr 29 1746 Alexis Bhatia's Documentation Tue Apr 29, 2019 1525 ED EKG INTERPRETATION: Normal sinus rhythm at 76 beats per minute Normal axis Normal intervals Normal ST-T segments. No acute injury pattern. Interpretation by ED physician No prior EKG's available for comparison. ECG Complete W Interpretation and hand to Attending for review Clinical Impressions as of Apr 29 1746 Nonspecific chest pain Hypothyroidism, unspecified type Mild intermittent asthma without complication MDM / Disposition / Plan Placed in chest pain care pathway. Aspirin. Will reevaluate after initial workup and treatment. High sensitivity troponin is negative ?2. Low risk chest pain. PERC negative. Doubt pulmonary embolism. Doubt acute coronary syndrome. Patient states she does a lot of weight lifting. Most likely muscular chest pain. Stable for trial for outpatient management at this time. Tylenol, Motrin, and Flexeril for pain. Referred to PCP for follow up. Advised patient to return for repeat evaluation in 12 hours or sooner with increasing or worsening chest pain, or other concerns. Patient agreeable with plan and verbalized understanding. Discharged home in stable condition. Disposition The patient was discharged and given RX. Counseled patient regarding lab results, radiology results and suspected diagnosis. As well as the need for follow-up. Discharged home with verbal and written instructions. They were instructed to return as needed for persistent or worsening symptoms or any new concerns. Medication(s) prescribed include Flexeril. Condition at disposition is stable. SIGNATURE: DO Alexis Valdivia DO 04/29/[address] [facility] High Sens Troponin Ton 04-29 High Sensitivity SHELBY <6 Normal <[address] [facility] Comment on above: Result Comment: When assessing risk for acute coronary syndromes: In patients undergoing blood draw greater than or equal to 2 hours from symptom onset, with history of very low to moderate risk and non-ischemic ECG, an initial hs-Troponin T less than 12 ng/L AND a 1 hour delta hs-Troponin T less than 3 ng/L should be considered very low risk for 30 day MACE. Performed By: #### H STNT ####[facility] [address] [place], [place] [phone] High Sensitivity SHELBY <6 Normal <[address] [facility] Comment on above: Result Comment: When assessing risk for acute coronary syndromes: In patients undergoing blood draw greater than or equal to 2 hours from symptom onset, with history of very low to moderate risk and non-ischemic ECG, an initial hs-Troponin T less than 12 ng/L AND a 1 hour delta hs-Troponin T less than 3 ng/L should be considered very low risk for 30 day MACE. Performed By: #### H STNT #### [facility] [address] [facility] [phone] Magnesiumon 04-29-2019 Magnesium [Mass/Vol] 1.9 mg/dL Normal 1.7-2.[address] [facility] Comment on above: Performed By: #### CBC, CMP, MG1, HCGED #### [facility] [address] [place] [phone] XR CHEST 2V FRONTAL/LATon XR CHEST 2V FRONTAL/LAT * * *Final Report* * * DATE OF EXAM: Apr 29 2019 3:37PM MDX 5291 - XR CHEST 2V FRONTAL/LAT / PROCEDURE REASON: Chest pain * * * * Physician Interpretation * * * * EXAMINATION: CHEST RADIOGRAPH (2 VIEW FRONTAL and LATERAL) CLINICAL HISTORY: Chest pain MQ: XC2_5 Comparison: None RESULT: Lines, tubes, and devices: None. Lungs and pleura: There is no focal pulmonary consolidation. No pleural effusion or pneumothorax. Cardiomediastinal silhouette: Normal cardiomediastinal silhouette. Other: . IMPRESSION: No acute radiographic abnormality. Solar Panel Technician: PSCB Transcribe Date/Time: Apr 29 2019 3:39P Dictated by : ZAIRA OKEFEE MD This examination was interpreted and the report reviewed and electronically signed by: ZAIRA OKEEFE MD on Apr 29 2019 3:39PM EST [id number] Normal [facility] COMPMETAon 02-18-2019 Albumin [Mass/Vol] 3.9 g/dL Normal 3.4-5.0 [facility] Comment on above: Performed By: #### [id number], [id number] #### [facility] [address] [place] [address]39[address] Biomedical Equipment Technician: Nitin Carson MD Albumin/Globuli n [Mass ratio] 1.3 {ratio} Normal [facility] Comment on above: Performed By: #### [id number], [id number] #### [facility] [address] [place] [address] 17513 Biomedical Equipment Technician: Nitin Carson MD Alk Phos 46 unit/L Normal 45-117 [facility] Comment on above: Performed By: #### [id number],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 06-06-2023 End: 09-05-2023 CBC W Auto Differential panel - Blood CBC + DIFF Lab Routine Screening for blood disease Expected: 06/06/2023, Expires: 09/05/2023 [facility] Work Phone: Comment on above: Expected: 06/06/2023 , Expires: 09/05/2023 Start: 06-06-2023 End: 09-05-2023 Comprehensive metabolic 2000 panel - Serum or Plasma COMP METABOLIC PANEL Lab Routine Screening for diabetes mellitus Expected: 06/06/2023, Expires: 09/05/2023 [facility] Work Phone: Comment on above: Expected: 06/06/2023 , Expires: 09/05/2023 Start: 06-06-2023 End: 09-05-2023 Lipid 1996 panel - Serum or Plasma LIPID PANEL BASIC Lab Routine Low HDL (under 40) Expected: 06/06/2023, Expires: 09/05/2023 [facility] Work Phone: Comment on above: Expected: 06/06/2023 , Expires: 09/05/2023 Start: 06-06-2023 Urine microalbumin profile DTaP,Tdap,Td Vaccine (2 - Td or Tdap) [facility] Comment on above: Postponed from 03/21 (Declined at this time) Start: 2023 Shingrix Vaccine (1 of 2) Shingrix Vaccine (1 of 2) [facility] Start: 12-08-2022 Influenza vaccination Influenza Vacc ine (#1) [facility] Start: 12-08-2021 Influenza vaccination INFLUENZA (#1) [facility] Start: 12-10-2020 Mammography [facility] Start: 12-10-2020 Screening for malign ant neoplasm of breast Mammogram Screening [facility] Start: 06-04-2020 ANNUAL PCP TEAM [employer] LO[employer] MANAGER BLANCHE DISEASE VISIT ANNUAL PCP TEAM CHRONIC DISEASE VISIT [facility] Start: 03-21-2020 Urine microalbumin profile [facility] Start: 08-27-2019 Lipid 1996 panel - S tommy or Plasma Lipid Screening [facility] Start: 08-27-2019 Lipid panel Lipid Screening [place] Start: 08-27-2019 LIPID SCREEN LIPID SCREEN [facility] Start: 2018 COLOGUARD (FIT-DNA) COLOGUARD (FIT-D NA) [facility] Start: 2018 Colonoscopy COLONOSCOPY [facility] Start: 2018 COLORECTAL CANCER SCREENING COLORECTAL CANCER SCREENING [facility] Start: [address] COLONOGRAPHY [facility] Start: 2018 FECAL OCCULT BLOOD FECAL OCCULT BLOO D [facility] Start: 2018 Screening for malign ant neoplasm of colon [facility] Start: 2018 SIGMOIDOSCOPY SIGMOIDOSCOPY [facility] Start: 05-20-2015 HPV TESTING HPV TESTING [facility] Start: 05-20-2015 Screening for malign ant neoplasm of cervix HPV Testing [facility] Start: 1992 Pneumococcal Vaccine : 50+ (1 of 2 - PCV) Pneumococcal Vaccine: 50+ (1 of 2 - PCV) [facility] Start: 1991 Anxiety Screening Anxiety Screening [facility] Start: 1991 HEPATITIS C SCREENING HEPATITIS C [facility] Start: 1991 Hepatitis C screening Hepatitis C [facility] Start: 1991 HIV SCREENING HIV SCREENING [facility] Start: 1991 HIV screening HIV Screening [facility] Start: 1991 SPIROMETRY SPIROMETRY [facility] Start: 1979 PNEUMOCOCCAL (1 - PCV) PNEUMOCOCCAL (1 - PCV) [facility] Start: 1979 Pneumococcal vaccination [facility] Start: 1973 COVID-19 VACCINE (#1) COVID-19 VACCI NE (#1) [facility] Bacteria identified in Wound by Culture ABSCESS AND WOUND CULTURE WITH GRAM STAIN Microbiology Routine Acute paronychia of left thumb 02/21/2023 2:11 PM EST [facility] Work Phone: End: 03-07-2025 DBT Breast - bilateral screening KILLIAN SCREENING W MAIKEL Radiology Routine Encounter for screening mammogram for breast cancer 1 Occurrences starting 02/06/2024 until 03/07/2025 [facility] Work Phone: Comment on above: 1 Occurrences starti ng 02/06/2024 until 03/07/2025 End: 03-29-2024 KILLIAN SCREENING KILLIAN SCREENING Radiology Routine Encounter for screening mammogram for breast cancer 1 Occurrences starting 02/28/2023 until 03/29/2024 [facility] Work Phone: Comment on above: 1 Occurrences starti ng 02/28/2023 until 03/29/2024 End: 01-27-2023 Screening mammography bi 2-view breast inc cad KILLIAN SCREENING Radiology Routine Encounter for screening mammogram for breast cancer 1 Occurrences starting 12/28/2021 until 01/27/2023 [facility] Work Phone: Comment on above: 1 Occurrences starti ng 12/28/2021 until 01/27/2023 End: 06-28-2024 XR Chest PA and Lateral XR CHEST 2V FRONTAL/LAT Radiology Routine LRTI (lower respiratory tract infection) Mild intermittent asthma without complication 1 Occurrences starting 05/30/2023 until 06/28/2024 [facility] Work Phone: Comment on above: 1 Occurrences starti ng 05/30/2023 until 06/28/2024 XR Chest PA and Lateral XR CHEST 2V FRONTAL/LAT Radiology Routine LRTI (lower respiratory tract infection) Mild intermittent asthma without complication 05/30/2023 9:02 AM EST [facility] [place] Immunizations Immunization Date Immunization Notes Care Provider Fa krystyna 09-06-2012 tuberculin skin test ; purified protein derivative solution, intradermal Xr Philip Work Phone: [facility] Work Phone: 08-28-2012 tuberculin skin test ; purified protein derivative solution, intradermal Xr Philip Work Phone: [facility] 03-21-2010 influenza virus vaccine, unspecified formulation Edwin Gonzalez MD Work Phone: [facility] 03-21-2010 tetanus toxoid, redu anel diphtheria toxoid, and acellular pertussis vaccine, adsorbed Edwin Gonzalez MD Work Phone: [facility] 11-08-1991 hepatitis B vaccine, adult dosage Edwin Gonzalez MD Work Phone: [facility] Work Phone: 06-08-1991 hepatitis B vaccine, adult dosage Edwin Gonzalez MD Work Phone: [facility] Work Phone: 04-09-1991 hepatitis B vaccine, adult dosage Edwin Gonzalez MD Work Phone: [facility] Work Phone: Payers Date Payer Category Payer Self-pay [id number] 2024 Private Health Insurance [id number] 2024 Unknown [id number] 2020 Unknown WILEY BARRIGA PPO [id number] 2020-Present [phone] [address] [place] [address] PPO [id number] 2020 Unknown [id number] 2016 Unknown [id number] 1973 Unknown [id number] 1973 Unknown [id number] 1973 Unknown [id number] 1973 Unknown [id number] 1973 Unknown [id number] Unknown [id number] Unknown [id number] Social History Date Type Detail Facility Start: 11-17-2020 Tobacco smoking stat [facility] Unknown if ever smoked [facility] Work Phone: Start: 1975 Sex Assigned At Female [facility] Start: 11-01-1994 End: 02-19-2023 Tobacco smoking status FLIS Smokes tobacco daily [facility] Start: 11-01-1994 End: 11-01-2012 History of tobacco use Cigarette Smoker [facility] Start: 10-27-2021 End: 02-21-2023 Cigarettes smoked current (pack per day) - Reported 0.5 [facility] Start: 10-27-2021 End: 02-19-2023 Tobacco use and exposure Smokeless tobacco non-user [facility] Start: 10-28-2021 End: 06-06-2023 Alcohol intake Current drinker of alcohol (finding) [facility] Start: 06-04-2019 History SDOH Alcohol Frequency 2 [facility] Start: 06-04-2019 History SDOH Alcohol Std Drinks 1 [facility] Start: 12-06-2006 History SDOH Alcohol Comment occ [facility] Start: 06-04-2019 History SDOH Social Connections Phone 5 [facility] Start: 06-04-2019 History SDOH Social Connections Get Together 4 [facility] Start: 06-04-2019 History SDOH Social Connections Yarsanism 3 [facility] Start: 06-04-2019 History SDOH Physica l Activity DPW 6 [facility] Start: 06-04-2019 History SDOH Physica l Activity MPS 8 [facility] Start: 06-04-2019 Education 21 [facility] Start: 10-27-2021 End: 02-19-2023 Tobacco Comment pt's vapes [facility] Start: 1975 Sex Assigned At Not on file [facility] Start: 06-04-2019 End: 02-21-2023 Social connection and isolation panel [facility] Do you belong to any clubs or organizations such as sikhism groups, unions, fraternal or athletic groups, or school groups? Yes [facility] Are you now , , , , never or living with a partner? [facility] How often to you hav e a drink containing alcohol? Monthly or less [facility] How many standard dr inks containing alcohol do you have on a typical day? 1 or 2 [facility] How often do you hav e 6 or more drinks on 1 occasion? Never [facility] How hard is it for y ou to pay for the very basics like food, housing, medical care, and heating Not hard at all [facility] Do you feel stress - tense, restless, nervous, or anxious, or unable to sleep at night because your mind is troubled all the time - these days [OSQ] Not at all [facility] (I/We) worried duane er (my/our) food would run out before (I/we) got money to buy more. Never true [facility] Start: 10-16-2022 End: 04-17-2024 Alcoholic beverage intake Lifetime non-drinker (finding) [facility] Start: 10-13-2022 Alcohol Comment caffeine: none [facility] Start: 09-03-2024 [facility] Medical Equipment Procedure Code Equipment Code Equipment Original Text Equipment Identifier Dates Kho-Qu-B-Kind Implant - [id number] Start: 10-28-2021 Comment on above: Description: STEFFI Barbosa ICROMATRIX STANDARD PARTICULATE Vtp-Me-T-Kind Implant - [id number] Start: 10-28-2021 Comment on above: Description: STEFFI Barbosa ICROMATRIX STANDARD PARTICULATE Functional Status Date Assessment Result Facility 02-02-2014 Are you deaf, or do you have serious difficulty hearing No 02/02/2014 11:37 AM Mary Cm RN No [facility] 02-02-2014 Are you blind, or do you have serious difficulty seeing, even when wearing glasses No 02/02/2014 11:37 AM Mary Cm RN No [facility] 02-02-2014 Do you have serious difficulty walking or climbing stairs No 02/02/2014 11:37 AM Mary Cm RN No [facility] 02-02-2014 Do you have difficul ty dressing or bathing No 02/02/2014 11:37 AM Mary Cm RN No [facility] 02-02-2014 Because of a physica l, mental, or emotional condition, do you have difficulty doing errands alone such as visiting a physician's office or shopping No 02/02/2014 11:37 AM Mary Cm RN No [facility] Mental Status Date Assessment Result Facility 02-02-2014 Because of a physica l, mental, or emotional condition, do you have serious difficulty concentrating, remembering, or making decisions No 02/02/2014 11:37 AM Mary Cm RN No [facility] Clinical Notes 10-27-2021 to 09-18-2024 Telephone Encounter - Annamaria Dunaway LPN - 09/18/2024 1:45 PM EDTTelephone Encounter - Annamaria Dunaway LPN - 09/18/2024 1:45 PM EDTTato Car MD - 04/17/2024 2:20 PM EST Note Date & Type Note Facility 09-18-2024 Telephone encounter Note Labs have been faxed to number provided [facility] 09-18-2024 Miscellaneous Notes Labs have been faxed to number provided Pt wants all lab results from 2024 faxed to her @ [phone] documented in this encounter [facility] 09-18-2024 Telephone encounter Note Pt wants all lab results from 2024 faxed to her @ [phone] [facility] 04-17-2024 History of Presen t illness Narrative Images from the original note were not included. CHIEF COMPLAINT: Shanice Whipple is a 48 y.o. female here today for Chief Complaint Patient presents with migraines HISTORY OF PRESENT ILLNESS: History of Present Illness The patient is a 48-year-old female who presents for evaluation of headaches, neuropathy, and thyroid issues. She was last seen in October, at which point she was experiencing more headaches but was reluctant to take preventative medications because Imitrex was working well, and the headaches were only associated with her menstrual cycle. She reports a fluctuating pattern of headaches, with some days being better than others. She has been managing her migraines effectively by taking half a dose of Imitrex upon experiencing an aura, which extends the duration of her medication supply. She is seeking refills for her Imitrex prescription. She has not yet found another neurologist and is not interested in making any changes at this time. She is currently under the care of Dr. Gonzalez, her primary care physician. Imitrex was refilled. She is also on T3 and T4 medications, prescribed by her accounts payable coordinator, whom she consults every 4 months. However, she is seeking a referral to another specialist. She has been experiencing night sweats, mood swings, and irritability, which she attributes to menopause. She has been experiencing nightmares as well. She has been referred to an MARKET EDITOR for potential menopause symptoms. She recalls that her mother began experiencing menopausal symptoms in her 50s. She reports no exacerbation of her neuropathy symptoms and continues to engage in detoxification practices through [facility]. Supplemental Information She is on Lamictal, which is managed by Dr. Benedict. FAMILY HISTORY Her mother started menopause in her 50s. MEDICATIONS Imitrex, Synthroid, Lamictal Current Outpatient Medications on File Prior to Visit Medication Sig Dispense Refill lamoTRIgine (LaMICtal) 200 MG tablet Take 200 mg by mouth in the morning. levothyroxine (Synthroid, Levoxyl) 112 MCG tablet Take 112 mcg by mouth 1 (one) time each day at the same time. liothyronine (Cytomel) 5 MCG tablet Take 5 mcg by mouth Daily SUMAtriptan (Imitrex) 100 MG tablet Take 1 tablet (100 mg) by mouth 1 (one) time if needed for migraine May repeat dose once in 2 hours if no relief. Do not exceed 2 doses in 24 hours. 27 tablet 3 traZODone (Desyrel) 50 MG tablet Take 50 mg by mouth as needed at bedtime. No current facility-administered medications on file prior to visit. Past Medical History: Diagnosis Date Migraine (CMS/HCC) Peripheral neuropathy Past Surgical History: Procedure Laterality Date OTHER SURGICAL HISTORY 2019 plantar facitis [place] RELEASE TARSAL TUNNEL 07/2019 partial tarsal tunnel Family History Problem Relation Name Age of Onset Diabetes Father Hyperlipidemia Father Heart disease Father Neuropathy Neg Hx Social History Tobacco Use Smoking status: Every Day Types: Cigarettes Smokeless tobacco: Never Substance Use Topics Alcohol use: Never Comment: caffeine: none ALLERGIES: Patient has no known allergies. REVIEW OF SYSTEMS: General: Appetite change: denies. Chills: denies. Fever: denies. Allergy/Immunology: Unusual rection to medications, food, animals or insects reaction: denies. Ophthalmologic: Visual acuity change: denies. ENT: Decreased hearing: denies. Endocrine: Weight loss: denies. Respiratory: Cough: denies. Wheezing: denies. Cardiovascular: Chest pain: denies. Palpitations: denies. Gastrointestinal: Abdominal pain: denies. Difficulty swallowing: denies Hematology: Bleeding problems: denies. Genitourinary: Painful urination: denies. Musculoskeletal: Joint pain: denies. Joint edema: denies. Skin: Rash: denies. Neurologic: Ataxia: denies, Tremor: denies. Psychiatric Anxiety: denies. Depression: denies. Insomnia: denies. Suicidal thoughts: denies. Also see HPI for elements of ROS documented therein and for details of positive findings, which shall supersede the foregoing. OBJECTIVE: Objective There were no vitals filed for this visit. There is no height or weight on file to calculate BMI. No orders to display No visits with results within 2 Month(s) from this visit. Latest known visit with results is: [facility] on 02/12/2021 Component Date Value Ref Range Status VITAMIN B12 02/12/2021 300 232 - 1,245 Final PERFORMING LAB: 02/12/2021 see note Final [facility] [address] [place], [place] [address] TSH W/OUT REFLEX 02/12/2021 0.185 (L) 0.270 - 4.200 Final Comment: If the patient is , TSH reference range varies by gestational period: First Trimester (weeks 9-12): 0.180-2.990 mcIU/mL Second Trimester: 0.110-3.980 mcIU/mL Third Trimester: 0.480-4.710 mcIU/mL Daniel Gray et al. A Practical Approach for the Verifications and Determination of Site- and Trimester-Specific Reference Intervals for Thyroid Function tests in . Thyroid, 2019:29:3:412-420. Eron E, et al. 2017 Guidelines of the [place] Thyroid Association for the Diagnosis and Management of Thyroid Disease during and the . Thyroid, 2017:27:3:315-389. PERFORMING LAB: 02/12/2021 see note Final [facility] [address] [place], [place] [id number] RF 02/12/2021 <10 <16 Final PERFORMING LAB: 02/12/2021 see note Final [facility] [address] [place], [place] [address] SED RATE WESTERGREN 02/12/2021 2 0 - 20 Final PERFORMING LAB: 02/12/2021 see note Final [facility] [address] [place], [place] [address] ARSENIC, BLOOD 02/12/2021 <10.0 <=12.0 Final Comment: (NOTE) INTERPRETIVE INFORMATION: Arsenic, Blood Elevated results may be due to skin or collection-related contamination, including the use of a noncertified metal-free collection/transport tube. If contamination concerns exist due to elevated levels of blood arsenic, confirmation with a second specimen collected in a certified metal-free tube is recommended. Potentially toxic ranges for blood arsenic: Greater than or equal to 600 ug/L. Blood arsenic is for the detection of recent exposure poisoning only. Blood arsenic levels in healthy subjects vary considerably with exposure to arsenic in the diet and the environment. A 24-hour urine arsenic is useful for the detection of chronic exposure. This test was developed and its performance characteristics determined by [facility]. It has not been cleared or approved by the [place] Food and Drug Administration. This test was performed in a CLIA certified laboratory and is intended for clinical purposes. LEAD 02/12/2021 <2.0 <=4.9 Final Comment: (NOTE) INTERPRETIVE INFORMATION: Lead, Blood (Venous) Elevated results may be due to skin or collection-related contamination, including the use of a noncertified lead-free tube. If contamination concerns exist due to elevated levels of blood lead, confirmation with a second specimen collected in a certified lead-free tube is recommended. Information sources for reference intervals and interpretive comments include the CDC Response to the 2012 Advisory Committee on Childhood Lead Poisoning Prevention Report and the Recommendations for Medical Management of Adult Lead Exposure, Environmental Health Perspectives, 2007. Thresholds and time intervals for retesting, medical evaluation, and response vary by state and regulatory body. Contact your State Department of Health and/or applicable regulatory agency for specific guidance on medical management recommendations. Age Concentration Comment All ages 5-9.9 ug/dL Adverse health effects are possible, particularly in children under 6 years of age and women. Discuss health risks associated with continued lead exposure. For children and women who are or may become , reduce lead exposure. All ages 10-19.9 ug/dL Reduced lead exposure and increased biological monitoring are recommended. All ages 20-69.9 ug/dL Removal from lead exposure and prompt medical evaluation are recommended. Consider chelation therapy when concentrations exceed 50 ug/dL and symptoms of lead toxicity are present. Less than 19 Greater than Critical. Immediate medical years of age 44.9 ug/dL evaluation is recommended. Consider chelation therapy when symptoms of lead toxicity are present. Greater than 19 Greater than Critical. Immediate medical years of age 69.9 ug/dL evaluation is recommended Consider chelation therapy when symptoms of lead toxicity are present. This test was developed and its performance characteristics determined by [facility]. It has not been cleared or approved by the US Food and Drug Administration. This test was performed in a CLIA certified laboratory and is intended for clinical purposes. MERCURY, BLOOD 02/12/2021 <2.5 <=10.0 Final Comment: (NOTE) INTERPRETIVE INFORMATION: Mercury, Blood Elevated results may be due to skin or collection-related contamination, including the use of a noncertified metal-free collection/transport tube. If contamination concerns exist due to elevated levels of blood mercury, confirmation with a second specimen collected in a certified metal-free tube is recommended. Blood mercury levels predominantly reflect recent exposure and are most useful in the diagnosis of acute poisoning as blood mercury concentrations rise sharply and fall quickly over several days after ingestion. Blood concentrations in unexposed individuals rarely exceed 20 ug/L. The provided reference interval relates to inorganic mercury concentrations. Dietary and non-occupational exposure to organic mercury forms may contribute to an elevated total mercury result. Clinical presentation after toxic exposure to organic mercury may include dysarthria, ataxia and constricted vision richardson with mercury blood concentr ations from 20 to 50 ug/L. This test was developed and its performance characteristics determined by [facility]. It has not been cleared or approved by the US Food and Drug Administration. This test was performed in a CLIA certified laboratory and is intended for clinical purposes. Performed By: [facility] [address] [place] [id number] Director Family: Shanice Hollis MD PERFORMING LAB: 02/12/2021 see note Final [facility] [address] [place] [address] [phone] Results Examination: General Exam: pleasant, well nourished, well developed, in no acute distress Head: normocephalic, atraumatic Eyes: extraocular movement intact (EOMI), pupils equal, round, reactive to light, upper eyelids normal , lower eyelids normal Ears: no obvious hearing deficit Nose: Nares patent Neck/Throat: neck supple, full range of motion Oral Cavity: mucosa moist Skin: warm and dry Heart: no murmurs, regular rate and rhythm, S1, S2 normal Lungs: clear to auscultation bilaterally, good air movement, no wheezes, rales, rhonci, speaks in full sentences Chest: normal shape and expansion Abdomen: bowel sounds present, soft, nontender, nondistended, no guarding or rigidity Extremities: no edema, no cyanosis Musculoskeletal: no swelling or deformity Neurologic: AAOx3, memory intact, fund of knowledge appropriate Naming and repetition intact, fluent language, follows 3-step commands Pupils equal and reactive EOM intact, no gaze preference or deviation, no nystagmus. Normal sensation in V1, V2, and V3 segments bilaterally No facial asymmetry, no nasolabial fold flattening Normal hearing to speech Normal palatal elevation, no uvular deviation Normal midline tongue protrusion 5/5 head turn and 5/5 shoulder shrug bilaterally 5/5 muscle power in bilateral shoulder abductors/adductors, elbow flexors/extensors, wrist flexors/extensors, finger abductors/adductors. 5/5 in bilateral hip flexors/extensors, knee flexors/extensors, ankle dorsiflexors and plantar flexors. Reflexes 2/4 throughout, bilateral flexor plantar response, no Franklin's, no clonus Sensation intact to touch, pinprick, vibration, and temperature in all limbs No hemineglect, no extinction to double sided stimulation (visual & tactile) Romberg absent Coordination intact to finger to nose and heel to ibarra, no tremor, no dysmetria Normal stance, no truncal ataxia Normal gait; patient able to tip-toe, heel-walk Psych: pleasant, cooperative, good eye contact, speech clear, judgement and insight good ASSESSMENT/PLAN: Assessment & Plan 1. Headaches. The frequency and intensity of her headaches may decrease as she progresses through menopause. A [facility] 24 [facility] She is advised to monitor her headache patterns and report any significant changes in intensity or character. 2. Potential menopause symptoms. She reports symptoms such as night sweats, irritability, and emotional changes, which may be indicative of menopause. She is advised to consult with Dr. Joel Agarwal, an accounts payable coordinator in [place], for further evaluation and management of her potential menopause symptoms. 3. Neuropathy. She reports that her neuropathy has not worsened. documented in this encounter [facility] 02-06-2024 Note Patient Outreach (IN [facility]) SHANICE WHIPPLE ([id number]) 1975 F Date Time Provider Department 02/06/24 EDWIN GONZALEZ During your visit today, we recorded the following information about you: Allergies As of Date: 02/06/2024 Noted Allergy Reaction DOXYCYCLINE 08/28/2003 Comments: nausea,vomiting Date Reviewed: 06/06/2023 Reviewed by: Ramya Ac LPN - Fully Assessed Visit Diagnosis:Encounter for screening mammogram for breast cancer [Z12.31] Order(s):[facility] SCRE[facility] [[id number]] Order #: [id number] FUTURE Prescriptions as of 02/11/2024 - traZODone (DESYREL) 50 mg tablet Take 1 tablet by mouth daily at bedtime. Takes half a pill total is 25mg - liothyronine (CYTOMEL) 5 mcg tablet - SUMAtriptan (IMITREX) 25 mg tablet TAKE 1 PILL AT ONSET OF HEADACHE MAY REPEAT Q 2 HRS PRN - lamoTRIgine (LAMICTAL) 200 mg tablet Take 1 tablet by mouth once daily. - levothyroxine (SYNTHROID) 150 mcg tablet Take 1 tablet by mouth once daily. - cetirizine 10 mg ORAL tablet Take 1 tablet by mouth once daily. 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 Recently obtained CXR revealed multifocal pneumonia - she is currently on Augmentin and feeling 100% better. No longer using Advair. Exercise: works out regularly 4-5 times per week with lifting weights. Diet: Watches diet for salt (salty snacks, added salt, processed frozen/canned foods), sugary/sweet snacks, unhealthy fats: Yes - typically eat pretty healthy and well-balanced. 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 7-8 hours/night. Sees Dr. Partha schmidt in [place] for management of thyroid REVIEW OF SYSTEMS Negative ROS. PAST MEDICAL HISTORY Diagnosis Date ACL tear 05/28/2018 Asthma seasonal triggers Depressive disorder, not elsewhere classified Migraine, intractable Neuropathy Neuropathy bilateral feet Other forms of migraine Pneumonia Unspecified hypothyroidism PAST SURGICAL HISTORY Procedure Laterality Date FASCIECTOMY PLANTAR FASCIA RADICAL SPX Left 05/2019 LASIK S BALLOON,UTERINE ABLATION [id number] 2007 TARSAL TUNNEL RELEASE Left 07/2020 ALLERGIES Doxycycline MEDICATIONS amoxicillin-clavulanate potassium (AUGMENTIN) 875-125 mg per tablet Take 1 tablet by mouth two times a day for 10 days. traZODone (DESYREL) 50 mg tablet Take 1 tablet by mouth daily at bedtime. Takes half a pill total is 25mg SUMAtriptan (IMITREX) 25 mg tablet TAKE 1 PILL AT ONSET OF HEADACHE MAY REPEAT Q 2 HRS PRN lamoTRIgine (LAMICTAL) 200 mg tablet Take 1 tablet by mouth once daily. levothyroxine (SYNTHROID) 150 mcg tablet Take 1 tablet by mouth once daily. (Patient taking differently: Take 100 mcg by mouth once daily.) cetirizine 10 mg ORAL tablet Take 1 tablet by mouth once daily. (Patient taking differently: Take 10 mg by mouth as needed.) liothyronine (CYTOMEL) 5 mcg tablet FAMILY HISTORY Problem Relation Age of Onset Diabetes Father Hypertension Father Lipids Father Hypertension Mother Lipids Mother Coronary Artery Disease Paternal Grandfather Coronary Artery Disease Paternal Grandmother Social History Tobacco Use Smoking status: Every Day Packs/day: 0.50 Years: 18.00 Additional pack years: 0.00 Total pack years: 9.00 Types: Cigarettes Last attempt to quit: 11/01/2012 Years since quittin.6 Smokeless tobacco: Never Tobacco comments: pt's vapes Substance Use Topics Alcohol use: Yes Comment: occ Drug use: No PHYSICAL EXAM BP 120/70 (BP Site: Left Arm, BP Position: Sitting, BP Cuff Size: Large Adult) Pulse 85 Temp 36.5 C (97.7 F) Resp 12 Ht 170.2 cm (5' 7) Wt 72.1 kg (159 lb) LMP 10/17/2021 SpO2 96% BMI 24.90 kg/m General Appearance: well appearing, in no acute distress, alert Psych: mood and affect broad and appropriate Skin: Skin color, texture, turgor normal for age Lungs: Lungs clear to auscultation. No wheezing, rhonchi, rales. Heart: RRR without murmur, gallop, or rubs. Extremities: No gross deformities, significant edema, skin discoloration, clubbing or cyanosis. Neurological: Gait normal. No focal neurological deficits. Sensation grossly intact. Covid-19 Vaccine(1) Never done Pneumococcal Vaccine(1 of 2 - PCV) Never done Spirometry Never done Hepatitis C Screening Never done HIV Screening Never done HPV Testing due on 05/20/2015 Colorectal Cancer Screening Never done Lipid Screening due on 08/27/2019 DTaP,Tdap,Td Vaccine(2 - Td or Tdap) due on 03/21/2020 Mammogram Screening due on 12/10/2020 Influenza Vaccine(1) due on 12/08/2022 Shingrix Vaccine(1 of 2) due on 2023 Annual PCP Team Chronic Disease Visit due on 06/06/2024 Pap Testing due on 01/13/2026 Diabetes Screening due on 05/15/2026 Hepatitis B Vaccine Completed ASSESSMENT/PLAN: 1. Annual physical exam - ICD9: V70.0, ICD10: Z00.00 (primary diagnosis) - Counseled on healthy diet and regular exercise - Calcium intake with supplements or by diet of 1000 mg/day for under 50, 0342-5067 mg/day for 50+ - Patient was counseled [id number] by myself (the billing provider) for the following immunizations and vaccine components, including side effects: Shingrix. Patient opting to hold off for the timebeing. - Follow up for annual exam in one year 2. Screening for blood disease - ICD9: V78.9, ICD10: Z13.0 Routine screening labs ordered to further evaluate. Will call pt pending results. - CBC + DIFF 3. Screening for diabetes mellitus - ICD9: V77.1, ICD10: Z13.1 - COMP METABOLIC PANEL 4. Low HDL (under 40) - ICD9: 272.5, ICD10: E78.6 - Control undetermined, due for labs - LIPID PANEL BASIC Benign physical exam findings. All preventative maintenance orders updated per above. Prescription instructions reviewed with patient as applicable. Potential red flag symptoms discussed with the patient. Reviewed appropriate action plan to take if red flag symptoms occur. Patient agreeable to treatment plan. Gwendolyn Park PA-C documented in this encounter [facility] 05-31-2023 Miscellaneous Notes Spoke with patient. Given message from provider's office. Patient verbalizes understanding. Patricia Bertrand RN Yes. Patient appears to have pneumonia. She needs to continue Z-Pack and I am ordering 10 day dose of augmentin. Keep appointment next week for follow up. Thank you Lashell Dalton APRN.CNP Pt calling in again as she is not feeling well and was hoping someone could send in the antibiotic for her today to [facility] since Gwendolyn is not in. Pt has already been on Zpak. Pt thought Gwendolyn Park mentioned prescribing Augmentin if xray showed pneumonia. Call pt only if problem. Patient calling for CXR results done yesterday. She viewed in My Chart and results show possible pneumonia. She saw Gwendolyn ALVARES on 05/30 and was prescribed Prednisone. Patient states she feels a little better today but still has a cough and mild SOB. Asking if she needs an antibiotic? Patricia Bertrand RN documented in this encounter [facility] 05-30-2023 History of Presen t illness Narrative Radiology Service Progress Note PATIENT NAME: Shanice Whipple DATE OF SERVICE: May 30, 2023 TIME: 8:53 AM PATIENT IDENTITY VERIFICATION COMPLETED USING TWO (2) IDENTIFIERS: Name and Date of confirmed by patient verbally. FALL SCREENING: Has the patient had 2 falls in the last year or 1 fall with injury or currently using an Ambulatory Assistive Device (Walker, Cane, Wheelchair, Crutches, etc.)? No PATIENT GENDER DATA: Female. status: : No status: NO. PATIENT RELEVANT IMPLANT DATA REVIEWED: Yes PATIENT PRESENTS WITH AN IMPLANTABLE OR ATTACHED STONE SETTER: No RADIOLOGY DEPARTMENT: General X-ray: Exam(s) Completed: Chest X-Ray PERIPHERAL IV DATA: Not applicable SIGNED BY: RT Marianela(R) May 30, 2023 8:53 AM documented in this encounter [facility] 05-30-2023 Instructions Gwendolyn Park PA-C - 05/30/2023 8:15 AM EST Food sensitivity testing (MRT) - [email or web address] Christin Mueller- [facility] [place] Bower documented in this encounter [facility] 05-30-2023 History of Presen t illness Narrative CC: Patient presents with: Same Day Appointment: bronchial pneumonia x 1 week HPI Shanice Whipple is a 48 year old female who presents today for follow-upx2. Facility: [facility] emergent and urgent care center in [place], [place] Date of visit: 05/22/2023, 05/24/2023 Reason for visit: Cough, fatigue Hospital course: Initial visit, was given Decadron IM x 1; Discharged on Albuterol and Z-Abdiel (was told she likely wouldn't need this right away). Returned on the after skiing the day prior, nebulized albuterol tx performed in office. Discharged home with prescription for Advair. Diagnosis: Acute bronchitis Current symptoms: Still has tightness when she takes a deep breath in. Intermittent cough-has now been going on for 2-1/2 weeks. Has since finished her Z-Abdiel. Using Advair, and seems to be helping minimally Smoked cigarettes at least 20 years, currently vaped up until Sunday, when she quit. Doesn't plan to go back. REVIEW OF SYSTEMS See HPI PAST MEDICAL HISTORY Diagnosis Date ACL tear 05/28/2018 Asthma seasonal triggers Depressive disorder, not elsewhere classified Migraine, intractable Neuropathy Other forms of migraine Unspecified hypothyroidism PAST SURGICAL HISTORY Procedure Laterality Date FASCIECTOMY PLANTAR FASCIA RADICAL SPX Left 05/2019 LASIK S BALLOON,UTERINE ABLATION [id number] 2007 TARSAL TUNNEL RELEASE Left 07/2020 ALLERGIES Doxycycline MEDICATIONS liothyronine (CYTOMEL) 5 mcg tablet SUMAtriptan (IMITREX) 25 mg tablet TAKE 1 PILL AT ONSET OF HEADACHE MAY REPEAT Q 2 HRS PRN lamoTRIgine (LAMICTAL) 200 mg tablet Take 1 tablet by mouth once daily. levothyroxine (SYNTHROID) 150 mcg tablet Take 1 tablet by mouth once daily. (Patient taking differently: Take 100 mcg by mouth once daily.) cetirizine 10 mg ORAL tablet Take 1 tablet by mouth once daily. (Patient taking differently: Take 10 mg by mouth as needed.) FAMILY HISTORY Problem Relation Age of Onset Diabetes Father Hypertension Father Lipids Father Hypertension Mother Lipids Mother Coronary Artery Disease Paternal Grandfather Coronary Artery Disease Paternal Grandmother Social History Tobacco Use Smoking status: Every Day Packs/day: 0.50 Years: 18.00 Additional pack years: 0.00 Total pack years: 9.00 Types: Cigarettes Last attempt to quit: 11/01/2012 Years since quittin.5 Smokeless tobacco: Never Tobacco comments: pt's vapes Substance Use Topics Alcohol use: Yes Comment: occ Drug use: No PHYSICAL EXAM BP 122/62 (BP Site: Right Arm, BP Position: Sitting, BP Cuff Size: Large Adult) Pulse 67 Temp (!) 35.7 C (96.2 F) Resp 14 Ht 170.2 cm (5' 7) Wt 70.8 kg (156 lb) LMP 10/17/2021 SpO2 99% BMI 24.43 kg/m General Appearance: Hoarse voice noted, in no acute distress, alert Skin: Skin color, texture, turgor normal for age; Eyes: conjunctiva pink and moist, no icterus, sclera white, non-injected Nose/sinus: Nares normal. Septum midline. Mucosa normal. No drainage. Oropharynx: PND Lungs: Infrequent cough noted. Lungs clear to auscultation. No wheezing, rhonchi, rales. Heart: RRR without murmur, gallop, or rubs. No ectopy ASSESSMENT/PLAN: 1. LRTI (lower respiratory tract infection) - ICD9: 519.8, ICD10: J22 (primary diagnosis) Evaluated at x 2, with most recent visit on 05/24/2023 while in [place]. Minimal improvement on Z-Abdiel and with Advair inhaler. XR ordered to evaluate for acute process, as this is yet to be done for this set of symptoms. Rx for prednisone burst (40 mg x 5 days). Will adjust treatment as necessary pending results. Discussed medication indications, proper use, and potential adverse effects. All questions and concerns addressed to patient satisfaction. - XR CHEST 2V FRONTAL/LAT - PREDNISONE 20 MG TABLET 2. Mild intermittent asthma without complication - ICD9: 493.90, ICD10: J45.20 -See above - XR CHEST 2V FRONTAL/LAT Schedule for physical Prescription instructions reviewed with patient as applicable. Potential red flag symptoms discussed with the patient. Reviewed appropriate action plan to take if red flag symptoms occur. Patient agreeable to treatment plan. Gwendolyn Park PA-C documented in this encounter [facility] 05-16-2023 History of Presen t illness Narrative Patient presents with: Chest Congestion: cough, fever, chills, left ear pain, right middle finger redness x 2 days HPI: Feeling sick since yesterday Positive symptoms: Cough, Earache (started after hard cough), Fever, Chills, Nasal Congestion, Rhinorrhea, Chest heaviness/tightness, right middle finger redness/swelling Negative symptoms: , Sore throat, Vomiting, Diarrhea, finger drainage OTC: taking amoxicillin for tooth infection, finger soak Had antibiotic and I&D treatment for paronychia in February (not MRSA). PAST MEDICAL HISTORY Diagnosis Date ACL tear 05/28/2018 Asthma seasonal triggers Depressive disorder, not elsewhere classified Migraine, intractable Neuropathy Other forms of migraine Unspecified hypothyroidism MEDICATIONS: Current Outpatient Medications Medication Sig liothyronine (CYTOMEL) 5 mcg tablet SUMAtriptan (IMITREX) 25 mg tablet TAKE 1 PILL AT ONSET OF HEADACHE MAY REPEAT Q 2 HRS PRN lamoTRIgine (LAMICTAL) 200 mg tablet Take 1 tablet by mouth once daily. levothyroxine (SYNTHROID) 150 mcg tablet Take 1 tablet by mouth once daily. (Patient taking differently: Take 100 mcg by mouth once daily.) cetirizine 10 mg ORAL tablet Take 1 tablet by mouth once daily. (Patient taking differently: Take 10 mg by mouth as needed.) No current facility-administered medications for this visit. ALLERGIES: ALLERGIES Allergen Reactions Doxycycline nausea,vomiting VITALS: BP 122/70 Pulse 94 Temp 36.5 C (97.7 F) Resp 16 Wt 72.1 kg (159 lb) LMP 10/17/2021 SpO2 97% BMI 24.90 kg/m PHYSICAL EXAM: GEN: mildly ill appearing HEENT: PERRL, EOMI, conjunctiva clear Ears: canals clear. TMs without erythema, bulge, or effusion Sinuses: non-tender frontal sinus, non-tender maxillary sinuses Throat: moist mucous membranes, no erythema, no exudate Neck: supple, no thyromegaly, no lymphadenopathy HEART: regular rate and rhythm, no murmurs LUNGS: clear to auscultation, no wheezes or crackles, no increased WOB FINGER: right middle. Mild erythema along the lateral and proximal nail fold ASSESSMENT/PLAN: 1. Influenza-like illness - ICD9: 487.1, ICD10: J11.1 (primary diagnosis) - INFLUENZA A&B MOLECULAR (POC) - negative. I recommended COVID testing if negative for influenza since she will be traveling this weekend by airplane. Patient eloped before influenza test was complete. Continue supportive care for viral illness. 2. Paronychia of right middle finger - ICD9: 681.02, ICD10: L03.011 Recommended continued supportive care with warm soaks and antibiotic ointment. Patient is fearful her finger will progress to painful abscess similar to this fall. - SULFAMETHOXAZOLE 800 MG-TRIMETHOPRIM 160 MG TABLET sent to the pharmacy since she had progression of inflammation while taking amoxicillin. Jonathan Pete MD documented in this encounter [facility] 02-21-2023 History of Presen t illness Narrative See additional documentation and intake in Internal Medicine appointment today. Skin Lesion: Location: left thumb Duration: seen in 2 days ago with 1 week of paronychia/fissure Pruritis/Pain: very painful, throbbing Change: more swollen, turned white and black Drainage/blister/pustule/ulcera tion: no drainage, no fever Treatment: taking keflex, ice, ibuprofen, tylenol. PE: Alert, uncomfortable, pleasant. Thumb: left. 2cm white fluctuant area on lateral nail fold, dark and red around the periphery. UNIVERSAL PROTOCOL / SAFETY CHECKLIST Procedure to be Performed: I&D paronychia Sign In: Personnel directly involved with the procedure wore the appropriate PPE (Personal Protective Equipment). Patient/Surrogate Stated/Verified: PATIENT VERIFIED(optional for EMERGENT procedures): Patient name, Date of , Relevant allergies, and The intended procedure Time Out Communication: No relevant labs, photos, and/or imaging studies were applicable for review. Sign Out: SIGN OUT (optional for EMERGENT procedures): All specimen containers correctly labeled. Jonathan Pete MD Procedure: Incision and Drainage. Risks and benefits of the procedure were discussed including pain, bleeding, damage to underlying nerves or vessels, and failure to successfully drain the abscess. The patient understands these risks and wishes to proceed. Site cleansed with isopropyl alcohol pads. Anesthetic: none 18g syringe needle used to make stab incision. 1-2cc purulent material expressed from the wound. Dressed with an adhesive bandage. Continue keflex. Bactrim Rx sent to start today. Culture sent. Treat pain with OTC analgesia, warm compress, and soaks. documented in this encounter [facility] 02-21-2023 History of Presen t illness Narrative CC: Patient presents with: Pain: LT thumb x 3 days HPI Shanice Whipple is a 47 year old female who presents today for worsening left thumb pain/paronychia and for urgent care follow-up. Patient was started on Keflex 500 mg twice daily x5 days. Also advised warm soaks and OTC analgesia. Patient was advised to return for I&D if needed. REVIEW OF SYSTEMS PAST MEDICAL HISTORY Diagnosis Date ACL tear 05/28/2018 Asthma seasonal triggers Depressive disorder, not elsewhere classified Migraine, intractable Neuropathy Other forms of migraine Unspecified asthma(493.90) Unspecified hypothyroidism PAST SURGICAL HISTORY Procedure Laterality Date FASCIECTOMY PLANTAR FASCIA RADICAL SPX Left 05/2019 LASIK S BALLOON,UTERINE ABLATION [id number] 2007 TARSAL TUNNEL RELEASE Left 07/2020 ALLERGIES Doxycycline MEDICATIONS liothyronine (CYTOMEL) 5 mcg tablet cephALEXin (KEFLEX) 500 mg capsule Take 1 capsule by mouth two times a day for 5 days. SUMAtriptan (IMITREX) 25 mg tablet TAKE 1 PILL AT ONSET OF HEADACHE MAY REPEAT Q 2 HRS PRN lamoTRIgine (LAMICTAL) 200 mg tablet Take 1 tablet by mouth once daily. levothyroxine (SYNTHROID) 150 mcg tablet Take 1 tablet by mouth once daily. (Patient taking differently: Take 100 mcg by mouth once daily.) cetirizine 10 mg ORAL tablet Take 1 tablet by mouth once daily. (Patient taking differently: Take 10 mg by mouth as needed.) FAMILY HISTORY Problem Relation Age of Onset Diabetes Father Hypertension Father Lipids Father Hypertension Mother Lipids Mother Coronary Artery Disease Paternal Grandfather Coronary Artery Disease Paternal Grandmother Social History Tobacco Use Smoking status: Every Day Packs/day: 0.50 Years: 18.00 Additional pack years: 0.00 Total pack years: 9.00 Types: Cigarettes Last attempt to quit: 11/01/2012 Years since quittin.3 Smokeless tobacco: Never Tobacco comments: pt's vapes Substance Use Topics Alcohol use: Yes Comment: occ Drug use: No PHYSICAL EXAM BP 130/82 Pulse 71 Temp (!) 35.8 C (96.4 F) (Temporal) Resp 16 Wt 70.8 kg (156 lb) LMP 10/17/2021 SpO2 100% BMI 24.43 kg/m Patient transferred to [facility] schedule for evaluation, I&D, and treatment. See additional documentation in Exp Care note. ASSESSMENT/PLAN: 1. Acute paronychia of left thumb - ICD9: 681.02, ICD10: L03.012 - SULFAMETHOXAZOLE 800 MG-TRIMETHOPRIM 160 MG TABLET - ABSCESS AND WOUND CULTURE WITH GRAM STAIN Jonathan Pete MD documented in this encounter [facility] 02-19-2023 History of Presen t illness Narrative Patient presents with: Hand Pain: Left thumb pain x 1 week, swelling and bruising x 1 day HPI: Left thumb pain: Duration: bothering her a couple days Location: left lateral thumb along the nail Character: aching and sharp, initially just a crack that kept opening Radiation: Aggravating: touching Relieving: Pain relievers: Associated: swelling, red and bruised color Pertinent negatives: Denies fever, drainage PAST MEDICAL HISTORY Diagnosis Date ACL tear 05/28/2018 Asthma seasonal triggers Depressive disorder, not elsewhere classified Migraine, intractable Neuropathy Other forms of migraine Unspecified asthma(493.90) Unspecified hypothyroidism MEDICATIONS: liothyronine (CYTOMEL) 5 mcg tablet SUMAtriptan (IMITREX) 25 mg tablet TAKE 1 PILL AT ONSET OF HEADACHE MAY REPEAT Q 2 HRS PRN lamoTRIgine (LAMICTAL) 200 mg tablet Take 1 tablet by mouth once daily. levothyroxine (SYNTHROID) 150 mcg tablet Take 1 tablet by mouth once daily. (Patient taking differently: Take 100 mcg by mouth once daily.) cetirizine 10 mg ORAL tablet Take 1 tablet by mouth once daily. (Patient taking differently: Take 10 mg by mouth as needed.) ALLERGIES: ALLERGIES Allergen Reactions Doxycycline nausea,vomiting VITALS: BP 126/74 Pulse 68 Temp 36.7 C (98 F) Resp 16 Wt 72.7 kg (160 lb 3.2 oz) LMP 10/17/2021 SpO2 97% BMI 25.09 kg/m PE: Pleasant, in no acute distress. Thumb: left. Lateral nail border has edema with erythema and central blanching. It is tender to palpation. No drainage or fluctuant collection. ASSESSMENT/PLAN: 1. Acute paronychia of left thumb - ICD9: 681.02, ICD10: L03.012 Start - CEPHALEXIN 500 MG CAPSULE. Denies history of MRSA. Warm soaks and OTC analgesia recommended. Return for I&D if needed. Jonathan Pete MD documented in this encounter [facility] 10-28-2021 Note HNO ID: [id number] Author: Wilberto Enciso, DO Service: ? Author Type: Physician Type: Anesthesia Procedure Notes Filed: 10/28/2021 8:47 AM Note Text: ANESTHESIOLOGY PROCEDURE NOTE Airway General Information Procedure Start Time/Medication Administration: 10/28/2021 7:46 AM Patient location during procedure: OR Timeout Performed Pre-procedure: timeout performed Consent Obtained: Yes Patient identity confirmed: arm band Staffing CHARTERED ACCOUNTANT: Dayron Frank APRN.CHARTERED ACCOUNTANT Performed by: anesthesiologist and CHARTERED ACCOUNTANT Indications and Patient Condition Preoxygenated: yes Patient position: sniffing Manual In-Line Stabilization: No Difficult Mask: No Indications for airway management: anesthesia anesthesia circuit Method: asleep Cricoid Pressure: No Airway Accessory: LMA Final Airway Details Final airway type: supraglottic airway Number of attempts at approach: 1 Failed airway: no Unrecognized esophageal intubation: no Airway not difficult SIGNATURE: Dayron Frank APRN.CRNA PATIENT NAME: Shanice Whipple DATE: October 28, 2021 TIME: 8:03 AM CSN: [id number] [facility] 10-28-2021 Note HNO ID: [id number] Author: Wilberto Enciso DO Service: ? Author Type: Physician Type: Anesthesia Procedure Notes Filed: 10/28/2021 8:04 AM Note Text: ANESTHESIOLOGY PROCEDURE NOTE Peripheral Nerve Block General Information Procedure Start Time/Medication Administration: 10/28/2021 7:31 AM Procedure End time: 10/28/2021 7:36 AM Patient location during procedure: pre-op Timeout Performed Pre-procedure: timeout performed Consent Obtained: Yes Patient identity confirmed: arm band Reason for block: post-op pain management/at surgeon's request Staffing Anesthesiologist: Wilberto Enciso DO Performed by: anesthesiologist Preparation Sterility Preparation: hand hygiene performed prior to procedure, sterile gloves, drapes, and procedure tray, surgical cap used, mask used, skin prep agent completely dried prior to procedure Site Prep: Chloraprep Pre-Procedure Neuro Exam Location: RLE Sensory: intact Motor: intact Procedure Details Patient Position: supine Monitoring: Pulse OX, EKG and NIBP Block Type Lower Extremity: popliteal Approach: popliteal fossa Laterality: left Injection Technique: single-shot Ultrasound Guided: Yes Image in Chart: yes Local Infiltration: Yes Needle Needle Type: blunt Needle Gauge: 21 G Needle Length: 100 mm Needle Localization: anatomical landmarks and ultrasound Test Dose Response: negative test dose Assessment Injection assessment: negative aspiration, no paresthesia on injection, incremental injection and local visualized surrounding nerve on ultrasound Post-Procedure Neuro Exam Expected Regional Anesthesia: Yes Medications Administered Ropivacaine (PF) 5 mg/mL (0.5 %) injection (NAROPIN), 30 mL SIGNATURE: Wilberto Enciso DO PATIENT NAME: Shanice Whipple DATE: October 28, 2021 TIME: 8:01 AM CSN: [id number] [facility] 10-28-2021 Note HNO ID: [id number] Author: Kym Fowler RN Service: Nursing Author Type: Registered Nurse Type: Nursing Progress Note Filed: 10/28/2021 7:42 AM Note Text: Left popliteal block by Dr. Enciso using ultrasound from [id number]. [facility] 10-27-2021 Note HNO ID: [id number] Author: Pia Alex RN Service: Nursing Author Type: Registered Nurse Type: Progress Notes Filed: 10/27/2021 5:04 PM Note Text: Day of Surgery Medication Instructions: No current facility-administered medications for this encounter. Current Outpatient Medications Medication Sig Dispense Refill - gabapentin (NEURONTIN) 100 mg capsule Take 300 mg by mouth once daily. - SUMAtriptan (IMITREX) 25 mg tablet TAKE 1 PILL AT ONSET OF HEADACHE MAY REPEAT Q 2 HRS PRN 27 tablet 0 - albuterol HFA (PROAIR HFA) 90 mcg/actuation inhaler Inhale 2 Puffs as instructed every 4 hours as needed. 1 Inhaler 2 - lamoTRIgine (LAMICTAL) 200 mg tablet Take 1 tablet by mouth once daily. - levothyroxine (SYNTHROID) 150 mcg tablet Take 1 tablet by mouth once daily. (Patient taking differently: Take 100 mcg by mouth once daily. ) 90 tablet 0 - cetirizine 10 mg ORAL tablet Take 1 tablet by mouth once daily. (Patient taking differently: Take 10 mg by mouth as needed. ) 90 tablet 3 - cyclobenzaprine (FLEXERIL) 10 mg tablet Take 1 tablet by mouth every 8 hours as needed for Muscle Spasm. 20 tablet 0 - zafirlukast (ACCOLATE) 20 mg tablet Take 1 tablet by mouth twice daily. 180 tablet 0 - propranolol (INDERAL) 10 mg tablet TAKE 1 TABLET BY MOUTH TWICE DAILY GENERIC EQUIVALENT FOR INDERAL 180 tablet 3 - Amphetamine-Dextroamphetamine (ADDERALL XR) 25 mg 24 hr capsule Take by mouth. Earliest Fill Date: 08/22/17 0 - fluticasone (FLONASE) 50 mcg/actuation nasal spray Use 1 Center in each nostril once daily. Use as directed. 3 Bottle 1 - omeprazole (PRILOSEC) 20 mg capsule Take 1 capsule by mouth once daily. 90 capsule 1 - adapalene (DIFFERIN) 0.1 % gel Apply 1 application to affected area daily at bedtime. 60 g 1 - sulfacetamide sodium-sulfur 10-4.5 % clsr Apply 1 application to affected area twice daily. 3 Bottle 1 - buPROPion XL (WELLBUTRIN XL) 300 mg 24 hr tablet Take 1 tablet by mouth once daily. 90 tablet 3 - tobramycin-dexamethasone (TOBRADEX) ophthalmic solution Use 1 Drop in both eyes every 4 hours while awake. 1 Bottle 0 - aspirin, enteric coated (ECOTRIN LOW STRENGTH) 81 mg EC tablet Take 1 tablet by mouth once daily. 0 - methylphenidate ER 18 mg CR tablet Take 1 tablet by mouth once daily. 30 tablet 0 Take all routine morning medications. Follow instructions from your surgeon and prescriber regarding your aspirin. Chivo PORRAS [facility] 10-27-2021 Note HNO ID: [id number] Author: Jillian Morin APRN.INSTITUTIONAL COMMODITY ANALYST Service: Anesthesiology Author Type: Nurse Practitioner Type: Progress Notes Filed: 10/27/2021 1:33 PM Note Text: Summary: DOS meds Day of Surgery Medication Instructions: No current facility-administered medications for this encounter. Current Outpatient Medications Medication Sig Dispense Refill - gabapentin (NEURONTIN) 100 mg capsule Take 300 mg by mouth once daily. - SUMAtriptan (IMITREX) 25 mg tablet TAKE 1 PILL AT ONSET OF HEADACHE MAY REPEAT Q 2 HRS PRN 27 tablet 0 - albuterol HFA (PROAIR HFA) 90 mcg/actuation inhaler Inhale 2 Puffs as instructed every 4 hours as needed. 1 Inhaler 2 - lamoTRIgine (LAMICTAL) 200 mg tablet Take 1 tablet by mouth once daily. - levothyroxine (SYNTHROID) 150 mcg tablet Take 1 tablet by mouth once daily. (Patient taking differently: Take 100 mcg by mouth once daily. ) 90 tablet 0 - cetirizine 10 mg ORAL tablet Take 1 tablet by mouth once daily. (Patient taking differently: Take 10 mg by mouth as needed. ) 90 tablet 3 - cyclobenzaprine (FLEXERIL) 10 mg tablet Take 1 tablet by mouth every 8 hours as needed for Muscle Spasm. 20 tablet 0 - zafirlukast (ACCOLATE) 20 mg tablet Take 1 tablet by mouth twice daily. 180 tablet 0 - propranolol (INDERAL) 10 mg tablet TAKE 1 TABLET BY MOUTH TWICE DAILY GENERIC EQUIVALENT FOR INDERAL 180 tablet 3 - Amphetamine-Dextroamphetamine (ADDERALL XR) 25 mg 24 hr capsule Take by mouth. Earliest Fill Date: 08/22/17 0 - fluticasone (FLONASE) 50 mcg/actuation nasal spray Use 1 Center in each nostril once daily. Use as directed. 3 Bottle 1 - omeprazole (PRILOSEC) 20 mg capsule Take 1 capsule by mouth once daily. 90 capsule 1 - adapalene (DIFFERIN) 0.1 % gel Apply 1 application to affected area daily at bedtime. 60 g 1 - sulfacetamide sodium-sulfur 10-4.5 % clsr Apply 1 application to affected area twice daily. 3 Bottle 1 - buPROPion XL (WELLBUTRIN XL) 300 mg 24 hr tablet Take 1 tablet by mouth once daily. 90 tablet 3 - tobramycin-dexamethasone (TOBRADEX) ophthalmic solution Use 1 Drop in both eyes every 4 hours while awake. 1 Bottle 0 - aspirin, enteric coated (ECOTRIN LOW STRENGTH) 81 mg EC tablet Take 1 tablet by mouth once daily. 0 - methylphenidate ER 18 mg CR tablet Take 1 tablet by mouth once daily. 30 tablet 0 Take all routine morning medications. Follow instructions from your surgeon and prescriber regarding your aspirin. [facility] Evaluation note No assessment inform ation available [facility] Work Phone: Evaluation note Diagnosis Encounter for screening mammogram for breast cancer [facility] Acute paronychia of left thumb- Primary [facility] [place] [facility] Diagnosis Acute paronychia of left thumb- Primary [facility] [place] [facility]* Diagnosis Acute paronychia of left thumb- Primary [facility] [place] [facility] Diagnosis Encounter for screening mammogram for breast cancer documented in this encounter [facility] note* Diagnosis Influenza-like illness- Primary Influenza with other respiratory manifestations Paronychia of right middle finger documented in this encounter [facility] note* Diagnosis LRTI (lower respiratory tract infection)- Primary Other diseases of respiratory system, not elsewhere classified Mild intermittent asthma without complication Unspecified asthma documented in this encounter [facility] note* Diagnosis Annual physical exam- Primary Routine general medical examination at a health care facility Screening for blood disease Screening for unspecified disorder of blood and blood-forming organs Screening for diabetes mellitus Low HDL (under 40) Lipoprotein deficiencies Encounter for immunization Need for other specified prophylactic vaccination against single bacterial disease documented in this encounter [facility] note* Diagnosis LRTI (lower respiratory tract infection) Other diseases of respiratory system, not elsewhere classified Mild intermittent asthma without complication Unspecified asthma documented in this encounter [facility] note* Diagnosis Encounter for screening mammogram for breast cancer documented in this encounter [facility] note* Diagnosis Intractable chronic migraine without aura and without status migrainosus (CMS/HCC)- Primary Neuropathy Mononeuritis of unspecified site Menopause Symptomatic menopausal or female climacteric states documented in this encounter [facility] Diagnostic Procedure Only (Routine) - Pending Review Specialty Diagnoses / Procedures Referred By Randall gallegos Referred To Contact [facility] Diagnoses Encounter for screening mammogram for breast cancer Procedures KILLIAN SCREENING SCREENING MAMMOGRAPHY BI 2-VIEW BREAST INC Edwin Valdovinos MD [address] [place] [address] [facility] [address] [place] [id number] Referral ID Status Reason Start Date Expiration Date Visits Requested Visits Authorized [id number] Pending Review Auto-Generat ed Referral 12/28/2021 01/27/2023 [facility] Diagnostic Procedure Only (Routine) - Pending Review Specialty Diagnoses / Procedures Referred By Randall gallegos Referred To Contact [facility] Diagnoses Encounter for screening mammogram for breast cancer Procedures KILLIAN SCREENING SCREENING MAMMOGRAPHY BI 2-VIEW BREAST INC Edwin Valdovinos MD [address] [place] [address] [facility] [address] [place] [address] Referral ID Status Reason Start Date Expiration Date Visits Requested Visits Authorized [id number] Pending Review Auto-Generat ed Referral 3 03/29/2024 1 [facility] Diagnostic Procedure Only (Routine) - New Request Specialty Diagnoses / Procedures Referred By Randall t Referred To Contact [facility] Diagnoses Encounter for screening mammogram for breast cancer Procedures KILLIAN SCREENING W MAIKEL SCREENING DIGITAL BREAST TOMOSYNTHESIS BI SCREENING MAMMOGRAPHY BI 2-VIEW BREAST INC Edwin Valdovinos MD [address] [place] [address] [facility] [address] [address] Referral ID Status Reason Start Date Expiration Date Visits Requested Visits Authorized [id number] New Request Auto-Generat ed Referral 4 03/07/2025 1 1 [facility])No reason for referral information availableTacoma Capitaine [employer] Services Work Phone: Summary Purpose Family History No Family History Records Found Relationship Condition Age at Onset Recorded Date/T adam father Diabetes mellitus Unknown Myocardial infarction Unknown Hypertension Unknown Advance Directives No Advanced Directives Records Found Advance Directive Response Recorded Date/ Time Living Will No November 30 9 11:06pm Power of Program Arranger No November 30 019 11:06pm Chief Complaint and Reason for Visit Chief Complaint TARSAL TUNNEL SYNDRO ME Chief Complaint Admit Date MIGRAINES September 03, 2024 8:29a m Additional Source Comments INFORMATION SOURCE (unrecogn ized section and content) DATE CREATED AUTHOR 03/19/2018 [facility] DATE CREATED AUTHOR AUTHOR'S ORGANIZ ATION 12/06/2018 [facility] DATE CREATED AUTHOR AUTHOR'S ORGANIZ ATION 02/18/2019 [facility] DATE CREATED AUTHOR AUTHOR'S ORGANIZ ATION 04/30/[address] [facility] DATE CREATED AUTHOR AUTHOR'S ORGANIZ ATION 06/17/2019 Johnnie Pascual [facility] DATE CREATED AUTHOR AUTHOR'S ORGANIZ ATION 07/28/2020 [facility] [place] DATE CREATED AUTHOR AUTHOR'S ORGANIZ ATION 11/15/2021 [facility] DATE CREATED AUTHOR AUTHOR'S ORGANIZ ATION 04/22/2024 [facility] DATE CREATED AUTHOR AUTHOR'S ORGANIZ ATION 09/06/2024 [facility] DATE CREATED AUTHOR AUTHOR'S ORGANIZ ATION 09/29/2024 [facility] Goals (unrecognized section and content) Goals may be documented in a n alternate sectionGoals may be documented in an alternate section Source Comments (unrecognize d section and content) In the event this informatio n is protected by the Federal Confidentiality of Alcohol and Drug Abuse Patient Records regulations: The Federal rules restrict any use of the information to criminally investigate or prosecute any alcohol or drug abuse patient.[facility] the event this information is protected by the Federal Confidentiality of Alcohol and Drug Abuse Patient Records regulations: The Federal rules restrict any use of the information to criminally investigate or prosecute any alcohol or drug abuse patient.[facility] the event this information is protected by the Federal Confidentiality of Alcohol and Drug Abuse Patient Records regulations: The Federal rules restrict any use of the information to criminally investigate or prosecute any alcohol or drug abuse patient.[facility] the event this information is protected by the Federal Confidentiality of Alcohol and Drug Abuse Patient Records regulations: The Federal rules restrict any use of the information to criminally investigate or prosecute any alcohol or drug abuse patient.[facility] the event this information is protected by the Federal Confidentiality of Alcohol and Drug Abuse Patient Records regulations: The Federal rules restrict any use of the information to criminally investigate or prosecute any alcohol or drug abuse patient.[facility] the event this information is protected by the Federal Confidentiality of Alcohol and Drug Abuse Patient Records regulations: The Federal rules restrict any use of the information to criminally investigate or prosecute any alcohol or drug abuse patient.[facility] the event this information is protected by the Federal Confidentiality of Alcohol and Drug Abuse Patient Records regulations: The Federal rules restrict any use of the information to criminally investigate or prosecute any alcohol or drug abuse patient.[facility] the event this information is protected by the Federal Confidentiality of Alcohol and Drug Abuse Patient Records regulations: The Federal rules restrict any use of the information to criminally investigate or prosecute any alcohol or drug abuse patient.[facility] the event this information is protected by the Federal Confidentiality of Alcohol and Drug Abuse Patient Records regulations: The Federal rules restrict any use of the information to criminally investigate or prosecute any alcohol or drug abuse patient.[facility] Center[facility] the event this information is protected by the Federal Confidentiality of Alcohol and Drug Abuse Patient Records regulations: The Federal rules restrict any use of the information to criminally investigate or prosecute any alcohol or drug abuse patient.[facility] Center[facility] the event this information is protected by the Federal Confidentiality of Alcohol and Drug Abuse Patient Records regulations: The Federal rules restrict any use of the information to criminally investigate or prosecute any alcohol or drug abuse patient.[facility] the event this information is protected by the Federal Confidentiality of Alcohol and Drug Abuse Patient Records regulations: The Federal rules restrict any use of the information to criminally investigate or prosecute any alcohol or drug abuse patient.[facility] Care Teams (unrecognized sec tion and content) [employer] Operations Specialist Relationship Specialty Start Date End Date Edwin Gonzalez MD [address] [place] [address] PCP - General Internal Medicine 04/29/19 [employer] Specialist Relationship Specialty Start Date End Date Edwin Gonzalez MD [address] [place], [place] [address] PCP - General Internal Medicine 04/29/19 [employer] Operations Specialist Relationship Specialty Start Date End Date Edwin Gonzalez MD [address] [place], [place] [id number] PCP - General Internal Medicine 04/29/19 [employer] Operations Specialist Relationship Specialty Start Date End Date Edwin Gonzalez MD [address] [place], [place] [id number] PCP - General Internal Medicine 04/29/19 [employer] Operations Specialist Relationship Specialty Start Date End Date Edwin Gonzalez MD [address] [place] [address] PCP - General Internal Medicine 04/29/19 [employer] Operations Specialist Relationship Specialty Start Date End Date Edwin Gonzlaez MD [address] [place] [address] PCP - General Internal Medicine 04/29/19 [employer] Operations Specialist Relationship Specialty Start Date End Date Edwin Gonzalez MD [address] [place] [address] PCP - General Internal Medicine 04/29/19 [employer] Operations Specialist Relationship Specialty Start Date End Date Edwin Gonzalez MD [address] [place] [address] PCP - General Internal Medicine 04/29/19 [employer] Operations Specialist Relationship Specialty Start Date End Date Edwin Gonzalez MD [address] [place] [address] PCP - General Internal Medicine 04/29/19 [employer] Operations Specialist Relationship Specialty Start Date End Date Edwin Gonzalez MD [address] [place] [address] PCP - General Internal Medicine 04/29/19 [employer] Operations Specialist Relationship Specialty Start Date End Date Edwin Gonzalez MD [address] [place] [address] PCP - General Internal Medicine 04/29/19 [employer] Operations Specialist Relationship Specialty Start Date End Date Edwin Urrutia MD [address] [place] [address] PCP - General Pediatrics 10/11/22 [employer] Operations Specialist Relationship Specialty Start Date End Date Edwin Urrutia MD [address] [place] [address] PCP - General Pediatrics 10/11/22 Team Status: Active Member Role Status Dates Dr. Edwin Gonzalez MD Family Provider Active Dr. Edwin Gonzalez MD Primary Care Provider Active Team Status: Inactive Member Role Status Dates Dr. Edwin Gonzalez MD Primary Care Provider Active Start: September 03, 2024 End: September 03, 2024 Dr. Edwin Gonzalez MD Referring Provider Active Start: September 03, 2024 End: September 03, 2024 Dr. Jeremiah Horvath MD Attending Provider Active Start: September 03, 2024 End: September 03, 2024 [employer] Operations Specialist Relationship Specialty Start Date End Date Edwin Gonzalez MD [address] [place] [address] PCP - General Internal Medicine 04/29/19 Lashell Dalton APRN.INSTITUTIONAL COMMODITY ANALYST [address] [place], [place] [id number] [facility] Internal [facility] 03/16/24 Reason for Visit (unrecogniz ed section and content) Reason Comments Hand Pain Left thumb pain x 1 week, swelling and bruising x 1 day Reason Comments Pain LT thumb x 3 days Reason Comments Chest Congestion cough, fever, chills , left ear pain, right middle finger redness x 2 days Reason Comments Same Day Appointment bronchial pneumonia x 1 week Reason Comments Results Reason Comments Physical preventative exam Reason Comments migraines FOR RECORDS PERTAINING TO PATIENTS WHO ARE OR HAVE BEEN ENROLLED IN A CHEMICAL DEPENDENCY/SUBSTANCEABUSE PROGRAM, SOME INFORMATION MAY BE OMITTED. This clinical summary was aggregated from multiple sources. Caution should be exercised in using it in the provision of clinical care. This summary normalizes information from multiple sources, and as a consequence, information in this document may materially change the coding, format and clinical context of patient data. In addition, data may be omitted in some cases. CLINICAL DECISIONS SHOULD BE BASED ON THE PRIMARY CLINICAL RECORDS. [facility] [employer] [facility]. provides no warranty or guarantee of the accuracy or completeness of information in this document.
== END | disposition home or self-care (01) ==
PROVIDERS: PCP Internal Medicine
DX: Z01.82 Encounter for allergy testing (principal)
CPT/HCPCS: 36415